=== PATIENT | male | born 1960 | race Caucasian/White ===

== ENCOUNTER → 2018-08-26 | Outpatient (CLI) | payer BC ==
[2018-08-26 11:05] LABS: Basophils # (A) 0.1 k/uL (0-0.2); Basophils % (A) 2 %; Eosinophils # (A) 0.1 k/uL (0-0.7); Eosinophils % (A) 1 %; HCT 46.9 % (39.0-53.0); HGB 15.4 gm/dL (13.0-17.5); Lymphocytes % (A) 14 %; MCHC 32.9 g/dL (31.0-37.0); MCV 91.1 fL (80.0-100.0); Mean Platelet Volume 6.4; Monocytes # (A) 0.4 k/uL (0-1.0); Monocytes % (A) 5 %; Neutrophils # (A) 5.7 k/uL (1.3-7.7); Neutrophils % (A) 77 %; Platelet Count 290 k/uL (150-450); RBC 5.14 m/uL (4.30-5.90); RDW 13.7 % (11.5-15.5); WBC 7.4 k/uL (3.8-10.6)
--- NOTE | 2018-08-26 11:11 | CT ---
EXAMINATION TYPE: CT abdomen pelvis wo con DATE OF EXAM: 08/26/2018 COMPARISON: None HISTORY: 58-year-old male gross hematuria CT DLP: 1158.30 mGycm. Automated exposure control for dose reduction was used. TECHNIQUE: Contiguous axial scanning of the abdomen and pelvis without IV contrast. Coronal and sagit genevieve reconstructions performed. FINDINGS: Heart normal size without pericardial effusion. Lung bases clear without pleural effusion. Tiny hiatal hernia. Low attenuation of the hepatic parenchyma suggesting fatty infiltration. Liver mildly enlarged at 19. 0 cm. Some focal fatty sparing is present along the gallbladder fossa. Gallbladder, adrenal glands, left kidney, spleen, and pancreas show no gross abnormality by noncontra st CT. No nephrolithiasis or hydronephrosis. No suspicious calculus along the course of either ureter. There is a lobulated hypodense lesion medial lower pole right kidney that could represent a single le donald or 2 adjacent lesions with aggregate dimension of 4.6 cm, possible cystic in etiology. This can be correlated with ultrasound. No dilated small bowel, free fluid, or free air. Normal appendix. Scattered nonenlarged mesenteric lymph nodes are present. Scattered mild to moderate colonic diverticulosis especially along the left hemicolon. No pericolonic inflammatory change. Mild circumference of bladder wall thickening. Prostate gland is enlarged at 5.3 cm wide. Limited vis ualization of portions of the pelvis due to artifact from the patient's right hip replacement. No abn ormal fluid collection in the pelvis or pelvic lymphadenopathy. Bones: Right hip total arthroplasty. Advanced degenerative changes at the left hip. Additional degene rative changes at the SI joints and spondylotic change throughout the visualized spine. IMPRESSION: 1. No nephrolithiasis or hydronephrosis. 2. Lobulated 4.6 cm lesion lower pole right kidney could represent a complex cyst or 2 adjacent cyst s. Correlation with nonemergent follow-up renal ultrasound recommended. 3. Mild to moderate circumferential bladder wall thickening could represent cystitis or chronic blad vincent wall hypertrophy. 4. Prostatomegaly (5.3 cm wide). 5. Mild hepatomegaly (19.0 cm) with hepatic steatosis. 6. Left hemicolonic diverticulosis without evidence for acute diverticulitis.
[2018-08-26 11:23] LABS: Potassium 5.1 mmol/L (3.5-5.1)
--- NOTE | 2018-08-26 15:48 | US ---
EXAMINATION TYPE: US kidneys/renal and bladder DATE OF EXAM: 08/26/2018 COMPARISON: CT today CLINICAL HISTORY: N28.1 kidney cyst. EXAM MEASUREMENTS: Right Kidney: 12.2 x 6.0 x 6.0cm Left Kidney: 12.1 x 6.3 x 4.9 cm Right Kidney: probable septated cyst measuring 2.7 x 3.5 x 2.7cm Left Kidney: 12.1 x 6.3 x 4.9 Bladder: wnl Bilateral Jets seen: Yes Cortical medullary differentiation is maintained. No evident hydronephrosis or pathologic calcificati on bilaterally. There is no ascites. Inferior impression on the urinary bladder likely due to enlarged prostate. IMPRESSION: Cysts within the lower pole the right kidney is not simple, follow-up is recommended.
[2018-08-26 17:22] LABS: Prostate Specific Antigen 2.65 ng/mL (0.00-4.00)
== END ==
LOC: RADCTMAIN 09:57
PROVIDERS: ATTEND Nurse Practitioner Family
DX: N28.1 Cyst of kidney, acquired (principal); N32.89 Other specified disorders of bladder; N40.0 Benign prostatic hyperplasia without lower urinary tract symptoms; R16.0 Hepatomegaly, not elsewhere classified; K76.0 Fatty (change of) liver, not elsewhere classified; K57.30 Diverticulosis of large intestine without perforation or abscess without bleeding; R31.0 Gross hematuria
CPT/HCPCS: 36415; 74176; 76770; 80051; 84153; 85025

== ENCOUNTER → 2018-10-14 | Outpatient (CLI) | payer BC ==
--- NOTE | 2018-10-14 15:56 | CT ---
EXAMINATION TYPE: CT abdomen w con DATE OF EXAM: 10/14/2018 COMPARISON: Renal ultrasound and CT abdomen and pelvis August 26, 2018. HISTORY: Gross hematuria. Complex renal cyst per order. CT DLP: 1662.5 mGycm, Automated Exposure Control for Dose Reduction was Utilized. CONTRAST: CT scan of the abdomen is performed with oral and with IV Contrast, patient injected with 100ml mL of Isovue M300. FINDINGS: LUNG BASES: No significant abnormality is appreciated. LIVER/GB: Liver remains diffusely low dense consistent with fatty infiltration. PANCREAS: No significant abnormality is seen. SPLEEN: No significant abnormality is seen. ADRENALS: No significant abnormality is seen. KIDNEYS: There is symmetric abnormal uptake and excretion from both kidneys without evidence of hydro nephrosis seen bilaterally. Simple appearing roughly 1.3 cm cyst felt present posteriorly mid to lowe r pole level left kidney seen best axial series 6 image 34. Subcentimeter low dense lesion upper pole level medially left kidney is noted axial image 28 series 6. At lower pole level right kidney there are suspected to adjacent hypodense lesions posteriorly largest measures 2.0 cm series 3 image 41 fel t to reflect simple cysts. No suspicious enhancement or solid nodularity is identified. BOWEL: Oral contrast does not reach colonic level. No suspicious bowel dilatation is seen. Normal-adelfo earing appendix is seen from base of cecum. There are diverticula in the left and sigmoid colon witho ut CT evidence for acute diverticulitis. Mild wall thickening left colon into proximal sigmoid colon is presumed product of poor distention. LYMPH NODES: No greater than 1cm abdominal lymph nodes are appreciated. OSSEOUS STRUCTURES: No significant abnormality is seen. OTHER: No significant additional abnormality is seen. IMPRESSION: At area of concern lower pole level right kidney there are suspected 2 adjacent simple cy sts. No suspicious nodularity or enhancement. No significant finding is seen to account for patient's symptoms of gross hematuria.
== END ==
LOC: RADCTMAIN 14:51
PROVIDERS: ATTEND Urology
DX: R31.0 Gross hematuria (principal)
CPT/HCPCS: 74160; Q9967

== ENCOUNTER 2022-05-30 11:43 | Inpatient (IN) | payer BC ==
[2022-05-30] MEDS ORDERED: ACETAMINOPHEN TAB 325 MG TAB PO STA (12:19)
[2022-05-30] MEDS ORDERED: SODIUM CHLORIDE 0.9% 1,000 ML IV STA (12:19)
[2022-05-30 13:10] LABS: Basophils # (A) 0.1 k/uL (0-0.2); Basophils % (A) 1 %; Eosinophils % (A) 0 %; HCT 37.5 % (39.0-53.0); HGB 12.6 gm/dL (13.0-17.5); Lymphocytes # (A) 0.6 k/uL (1.0-4.8); Lymphocytes % (A) 4 %; MCH 29.9 pg (25.0-35.0); MCHC 33.5 g/dL (31.0-37.0); MCV 89.3 fL (80.0-100.0); Mean Platelet Volume 6.5; Monocytes # (A) 0.9 k/uL (0-1.0); Monocytes % (A) 6 %; Neutrophils # (A) 12.9 k/uL (1.3-7.7); Neutrophils % (A) 88 %; Platelet Count 462 k/uL (150-450); RBC 4.19 m/uL (4.30-5.90); RDW 13.8 % (11.5-15.5); WBC 14.7 k/uL (3.8-10.6)
--- NOTE | 2022-05-30 13:18 | XR ---
EXAMINATION TYPE: XR chest 2V DATE OF EXAM: 05/30/2022 COMPARISON: NONE HISTORY: Fever TECHNIQUE: Frontal and lateral views of the chest are obtained. FINDINGS: Patchy densities present at the lung bases. There is no evident pneumothorax or sizable pl eural effusion. Cardiac mediastinal silhouette is within normal limits accounting for patient rotatio n. Lung volumes are low. Arthropathy noted at the acromioclavicular joints. There is thoracic spondyl osis. Aorta is dense. IMPRESSION: Correlate for pneumonia versus basilar atelectasis, follow-up suggested.
[2022-05-30 13:20] LABS: ALT 24 U/L (4-49); AST 18 U/L (17-59); African American GFR (CKD) >90 (>60 ml/min/1.73 sqM); Albumin 3.3 g/dL (3.5-5.0); Alkaline Phosphatase 123 U/L (38-126); Anion Gap 8 mmol/L; Blood Urea Nitrogen 12 mg/dL (9-20); Calcium 8.3 mg/dL (8.4-10.2); Carbon Dioxide 28 mmol/L (22-30); Chloride 97 mmol/L (98-107); Glucose 134 mg/dL (74-99); Non-African American GFR(CKD) >90 (>60 ml/min/1.73 sqM); Potassium 3.6 mmol/L (3.5-5.1); Sodium 133 mmol/L (137-145); Total Bilirubin 0.7 mg/dL (0.2-1.3); Total Protein 6.5 g/dL (6.3-8.2)
--- NOTE | 2022-05-30 13:25 | XR ---
Right knee HISTORY: Trauma, pain 3 views of the right knee Bone mineralization, joint spaces and alignment are maintained. There is soft tissue swelling present . Atherosclerotic vascular calcifications are noted incidentally. Minimal joint effusion suspected wadsworth prapatellar location. Possible bone island present proximal tibial diaphysis. Spurring is present at the patellofemoral joint. IMPRESSION: No acute fracture or dislocation.
[2022-05-30] MEDS ORDERED: SODIUM CHLORIDE 0.9% 1,000 ML IV ONE (14:20)
--- NOTE | 2022-05-30 14:47 | CT ---
EXAMINATION TYPE: CT abdomen pelvis wo con CT DLP: 1500.4 mGycm, Automated exposure control for dose reduction was used. DATE OF EXAM: 05/30/2022 2:17 PM COMPARISON: CT abdomen pelvis most recent from 10/14/2018. CLINICAL INDICATION:Male, 62 years old with history of fever, back pain; flank pain TECHNIQUE: Standard CT of the abdomen and pelvis without IV or oral contrast. Lack of IV or oral co ntrast limits evaluation of solid and hollow organ viscera. Coronal and sagittal reformats were perfo rmed. FINDINGS: LOWER CHEST: Airspace opacities within the left lower lobe. Trace bilateral pleural effusions. Athero sclerosis of the coronary arteries. ABDOMEN LIVER: Diffusely hypoattenuating parenchyma. GALLBLADDER AND BILE DUCTS: Unremarkable. PANCREAS: Unremarkable. SPLEEN: Unremarkable. ADRENAL GLANDS: Unremarkable. KIDNEYS AND URETERS: No evidence of hydronephrosis or renal calculus. The ureters are unremarkable. Bilateral renal cysts measuring up to 3.6 cm on the right and 2.5 cm on the left. PELVIS BLADDER: Unremarkable REPRODUCTIVE: Unremarkable. ABDOMEN & PELVIS STOMACH AND BOWEL: Scattered diverticula are noted throughout the colon. No evidence of bowel obstruc tion. PERITONEUM: No evidence of pneumoperitoneum or free fluid. VASCULATURE: No evidence of aortic aneurysm. MUSCULOSKELETAL: There is destructive changes to T9 and T10 anterior endplate with erosions of the en dplates and surrounding inflammation. Multilevel disc degeneration changes are seen throughout the sp ine. There is end-stage osteophytic changes of the left hip with [id number] articulation. Right hip arthroplasty changes are present. There is straightening of the visualized spine. LYMPH NODES: No gross evidence for lymphadenopathy. SOFT TISSUE/ABDOMINAL WALL: Unremarkable IMPRESSION: 1. Findings suspicious for osteomyelitis/discitis of T9-T10. This is new 2018. Could be secondary to #2 2. Partially visualized bilateral, left greater than right lower lobe airspace opacities concerning f or pneumonia. New trace bilateral pleural effusions. 3. No evidence of obstructive uropathy, slightly asymmetric dilation of the right mid ureter is prese nt. No ureteral calculi identified. This may represent recently passed calculus. Correlate with urina lysis 4. Hepatic steatosis 5. Colonic diverticulosis.
[2022-05-30] MEDS ORDERED: VANCOMYCIN IV PER PHARMACY 1 EACH MISC MISCELLANE PRN (14:48)
[2022-05-30 14:51] LABS: Appearance,Urine Cloudy (Clear); Bilirubin,Urine Negative (Negative); Blood,Urine Moderate (Negative); Color,Urine Yellow; Glucose,Urine (UA) Negative (Negative); Ketones,Urine Negative (Negative); Leukocyte Esterase,Urine Moderate (Negative); Mucus,Urine Few /hpf; Nitrite,Urine Positive (Negative); Protein,Urine 1+ (Negative); RBC,Urine 53 /hpf (0-5); Specific Gravity,Urine 1.022 (1.001-1.035); Urobilinogen,Urine <2.0 mg/dL (<2.0); WBC,Urine 22 /hpf (0-5)
[2022-05-30] MEDS ORDERED: VANCOMYCIN 1,750 MG in SODIUM CHLORIDE 0.9% 500 ML 500 ML IVPB STA (15:00)
[2022-05-30] MEDS ORDERED: ONDANSETRON 4 MG/2 ML VIAL IVP PRN (15:05)
[2022-05-30] MEDS ORDERED: NALOXONE 0.4 MG/ML 1 ML VIAL IV PRN (15:05)
--- NOTE | 2022-05-30 15:05 | ED ---
Back Pain HPI - General Chief Complaint: Back Pain/Injury Stated Complaint: back pain Time Seen by Provider: 05/30/22 11:46 Source: patient, RN notes reviewed Limitations: no limitations - History of Present Illness Initial Comments: 62-year-old male presents emergency Department with chief complaint of back pain. Patient states she's been having increasing back pain are negative tolerated today. Patient did receive fentanyl EMS which seemed to help. Patient states that a recent he's had infections including staph infection of his surgical site from cyst removal, recent upper respiratory infection, abdominal pain. Patient's found to have fever today he states that he felt like he had a fever over the last couple days. He denies any dysuria hematuria denies any sick contacts. Patient denies any neck pain or neck stiffness. - Related Data Home Medications Medication Instructions Recorded Confirmed Alfuzosin HCl [Alfuzosin HCl ER] 10 mg PO HS 05/30/22 05/30/22 Cyclobenzaprine [Flexeril] 10 mg PO TID PRN 05/30/22 05/30/22 Ibuprofen [Motrin] 800 mg PO Q8H PRN 05/30/22 05/30/22 traMADol HCl [Ultram] 50 mg PO Q4HR PRN 05/30/22 05/30/22 Allergies Allergy/AdvReac Type Severity Reaction Status Date / Time No Known Allergies Allergy Verified 05/30/22 14:01 Review of Systems ROS Statement: Those systems with pertinent positive or pertinent negative responses have been documented in the HPI. ROS Other: All systems not noted in ROS Statement are negative. Past Medical History Additional Past Medical History / Comment(s): Staph infection from cyst removal in shoulder 02/2022 Past Surgical History: Orthopedic Surgery Past Psychological History: No Psychological Hx Reported Smoking Status: Former smoker Past Alcohol Use History: None Reported Past Drug Use History: Marijuana General Exam Limitations: no limitations General appearance: alert, in no apparent distress Head exam: Present: atraumatic, normocephalic, normal inspection Eye exam: Present: normal appearance, PERRL, EOMI. Absent: scleral icterus, conjunctival injection, periorbital swelling ENT exam: Present: normal exam, mucous membranes moist Neck exam: Present: normal inspection, full ROM. Absent: tenderness, men ingismus, lymphadenopathy Respiratory exam: Present: normal lung sounds bilaterally. Absent: respiratory distress, wheezes, rales, rhonchi, stridor Cardiovascular Exam: Present: normal rhythm, tachycardia, normal heart sounds. Absent: systolic murmur, diastolic murmur, rubs, gallop, clicks GI/Abdominal exam: Present: soft, normal bowel sounds. Absent: distended, tenderness, guarding, rebound, rigid Back exam: Present: full ROM, tenderness, vertebral tenderness Course Vital Signs 05/30/22 11:44 Temperature 100.2 F H Pulse Rate 119 H Respiratory 18 Rate Blood Pressure 170/93 O2 Sat by Pulse 95 Oximetry Medical Decision Making - Medical Decision Making 62-year-old male presented for back pain patient was febrile patient does have mild leukocytosis, CT shows evidence of discitis, osteomyelitis. Patient was started on vancomycin, Rocephin. Patient does have consult to orthopedics and infectious disease. Case discussed with Dr. Bustillo - Lab Data Result diagrams: 05/30/22 12:31 05/30/22 12:31 Lab Results 05/30/22 05/30/22 05/30/22 Range/Units 12:31 12:31 12:31 WBC 14.7 H (3.8-10.6) k/uL RBC 4.19 L (4.30-5.90) m/uL Hgb 12.6 L (13.0-17.5) gm/dL Hct 37.5 L (39.0-53.0) % MCV 89.3 (80.0-100.0) fL MCH 29.9 (25.0-35.0) pg MCHC 33.5 (31.0-37.0) g/dL RDW 13.8 (11.5-15.5) % Plt Count 462 H (150-450) k/uL MPV 6.5 Neutrophils % 88 % Lymphocytes % 4 % Monocytes % 6 % Eosinophils % 0 % Basophils % 1 % Neutrophils # 12.9 H (1.3-7.7) k/uL Lymphocytes # 0.6 L (1.0-4.8) k/uL Monocytes # 0.9 (0-1.0) k/uL Eosinophils # 0.0 (0-0.7) k/uL Basophils # 0.1 (0-0.2) k/uL Sodium 133 L (137-145) mmol/L Potassium 3.6 (3.5-5.1) mmol/L Chloride 97 L (98-107) mmol/L Carbon Dioxide 28 (22-30) mmol/L Anion Gap 8 mmol/L BUN 12 (9-20) mg/dL Creatinine 0.74 (0.66-1.25) mg/dL Est GFR (CKD-EPI)AfAm >90 (>60 ml/min/1.73 sqM) Est GFR (CKD-EPI)NonAf >90 (>60 ml/min/1.73 sqM) Glucose 134 H (74-99) mg/dL Plasma Lactic Acid Harman (0.7-2.0) mmol/L Calcium 8.3 L (8.4-10.2) mg/dL Total Bilirubin 0.7 (0.2-1.3) mg/dL AST 18 (17-59) U/L ALT 24 (4-49) U/L Alkaline Phosphatase 123 (38-126) U/L Total Protein 6.5 (6.3-8.2) g/dL Albumin 3.3 L (3.5-5.0) g/dL Urine Color Yellow Urine Appearance Cloudy (Clear) Urine pH 6.0 (5.0-8.0) Ur Specific [place] 1.022 (1.001-1.035) Urine Protein 1+ H (Negative) Urine Glucose (UA) Negative (Negative) Urine Ketones Negative (Negative) Urine Blood Moderate H (Negative) Urine Nitrite Positive (Negative) Urine Bilirubin Negative (Negative) Urine Urobilinogen <2.0 (<2.0) mg/dL Ur Leukocyte Esterase Moderate H (Negative) Urine RBC 53 H (0-5) /hpf Urine WBC 22 H (0-5) /hpf Urine Mucus Few H (None) /hpf Coronavirus (PCR) (Not Detectd) Influenza Type A RNA (Not Detectd) Influenza Type B (PCR) (Not Detectd) 05/30/22 05/30/22 05/30/22 Range/Units 12:31 12:31 13:35 WBC (3.8-10.6) k/uL RBC (4.30-5.90) m/uL Hgb (13.0-17.5) gm/dL Hct (39.0-53.0) % MCV (80.0-100.0) fL MCH (25.0-35.0) pg MCHC (31.0-37.0) g/dL RDW (11.5-15.5) % Plt Count (150-450) k/uL MPV Neutrophils % % Lymphocytes % % Monocytes % % Eosinophils % % Basophils % % Neutrophils # (1.3-7.7) k/uL Lymphocytes # (1.0-4.8) k/uL Monocytes # (0-1.0) k/uL Eosinophils # (0-0.7) k/uL Basophils # (0-0.2) k/uL Sodium (137-145) mmol/L Potassium (3.5-5.1) mmol/L Chloride (98-107) mmol/L Carbon Dioxide (22-30) mmol/L Anion Gap mmol/L BUN (9-20) mg/dL Creatinine (0.66-1.25) mg/dL Est GFR (CKD-EPI)AfAm (>60 ml/min/1.73 sqM) Est GFR (CKD-EPI)NonAf (>60 ml/min/1.73 sqM) Glucose (74-99) mg/dL Plasma Lactic Acid Harman 0.8 (0.7-2.0) mmol/L Calcium (8.4-10.2) mg/dL Total Bilirubin (0.2-1.3) mg/dL AST (17-59) U/L ALT (4-49) U/L Alkaline Phosphatase (38-126) U/L Total Protein (6.3-8.2) g/dL Albumin (3.5-5.0) g/dL Urine Color Urine Appearance (Clear) Urine pH (5.0-8.0) Ur Specific [place] (1.001-1.035) Urine Protein (Negative) Urine Glucose (UA) (Negative) Urine Ketones (Negative) Urine Blood (Negative) Urine Nitrite (Negative) Urine Bilirubin (Negative) Urine Urobilinogen (<2.0) mg/dL Ur Leukocyte Esterase (Negative) Urine RBC (0-5) /hpf Urine WBC (0-5) /hpf Urine Mucus (None) /hpf Coronavirus (PCR) Not Detected (Not Detectd) Influenza Type A RNA Not Detected (Not Detectd) Influenza Type B (PCR) Not Detected (Not Detectd) Disposition Clinical Impression: Discitis thoracic region, Pneumonia Disposition: ADMITTED IP TO THIS HOSP Condition: Fair Referrals: Chris Laguerre DO [Primary Care Provider] - 1-2 days Time of Disposition: 15:05
[2022-05-30] MEDS: SODIUM CHLORIDE 0.9% 1,000 ML IV SCH (15:53)
[2022-05-30] MEDS: HYDROmorphone 0.5 MG/0.5 ML SYRINGE IVP PRN (16:45)
--- NOTE | 2022-05-30 17:52 | P.CNOR ---
History of Present Illness - HPI Consult date: 05/30/22 Consult reason: back pain History of present illness: Patient is a very pleasant 62-year-old man who is seen and examined at bedside. 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 He initially started having troubles in February of this year about 3 months ago where he developed a staph infection and was feeling run down. He had significant problems was found to have staph infection his urinary tract. He was treated with oral antibiotics for 2 weeks. He is still feeling a bit lethargic and disoriented his back and this has been progressive for him. T he pain is mainly in his mid back and his lower ribs. It wraps around bilaterally at his lower ribs. In February of this year he had a small cyst which was removed in his shoulder posteriorly. He states that he developed staph infection after that. He had other pain at his right lower rib due to a fall at home. He also had pain in his right hip due to a fall. He has history of right total hip rep lacement which was done 6 years ago. About 6 weeks ago he was having some fevers and general malaise. He denied any nausea or vomiting. Denies any shortness of breath. Denies any chest pain. He says he has never had pain in his mid back like this before. He denies any numbness tingling in his lower extremities. Denies any specific weakness in his ankle. Toes. He says the pain goes up and down his spine was primarily located at his lower thoracic spine. Review of Systems As stated per HPI. He denies any weakness in his lower upper extremities. Denies any nausea vomiting. He has pain globally around his spine particularly at the lower thoracic area. He is tender to palpation over the mid and lower thoracic. He denies any rashes. Denies any bowel bladder function changes. Past Medical History Past Medical History: Osteoarthritis (OA) Additional Past Medical History / Comment(s): Staph infection from cyst removal in shoulder 02/2022. History of right total knee arthroplasty done at [facility] about 6 years ago. History of Any Multi-Drug Resistant Organisms: None Reported Past Surgical History: Orthopedic Surgery Additional Past Surgical History / Comment(s): cyst removed from L posterior shoulder, R elbow fracture with hardware, total R hip arthroplasty, R knee surgery for meniscus, L bicep muscle tear with repair, partial thyroidectomy, colonoscopies/benign polypectomies. Past Anesthesia/Blood Transfusion Reactions: No Reported Reaction Past Psychological History: No Psychological Hx Reported Smoking Status: Former smoker Past Alcohol Use History: None Reported Past Drug Use History: Marijuana - Past Family History Father Family Medical History: Renal Disease Additional Family Medical History / Comment(s): Father had heart problems and from renal failure. Mother Family Medical History: Cancer Additional Family Medical History / Comment(s): Mother of stomach cancer. Medications and Allergies Home Medications Medication Instructions Recorded Confirmed Type Alfuzosin HCl [Alfuzosin HCl ER] 10 mg PO HS 05/30/22 05/30/22 History Cyclobenzaprine [Flexeril] 10 mg PO TID PRN 05/30/22 05/30/22 History Ibuprofen [Motrin] 800 mg PO Q8H PRN 05/30/22 05/30/22 History traMADol HCl [Ultram] 50 mg PO Q4HR PRN 05/30/22 05/30/22 History Allergies Allergy/AdvReac Type Severity Reaction Status Date / Time No Known Allergies Allergy Verified 05/30/22 14:01 Physical Examination Osteopathic Statement: *. No significant issues noted on an osteopathic structural exam other than those noted in the History and Physical/Consult. - L Spine: dermatomal strength & reflexes bilateral Strength: hip flexion: 4/5 (Some limited right hip flexion about 45 due to pain in his right hip which is chronic for him. Otherwise 5-5 strength in his lower extremity.) Strength: knee extension: 5/5 (At his mid back is tender to palpation about the midline extending up his thoracic and into his thoracolumbar junction. There is no open wounds lacerations or abrasions. He has some tension at his neck is well with flexion and extension) Results - Labs Labs: Abnormal Lab Results - Last 24 Hours (Table) 05/30/22 05/30/22 05/30/22 Range/Units 12:31 12:31 12:31 WBC 14.7 H (3.8-10.6) k/uL RBC 4.19 L (4.30-5.90) m/uL Hgb 12.6 L (13.0-17.5) gm/dL Hct 37.5 L (39.0-53.0) % Plt Count 462 H (150-450) k/uL Neutrophils # 12.9 H (1.3-7.7) k/uL Lymphocytes # 0.6 L (1.0-4.8) k/uL Sodium 133 L (137-145) mmol/L Chloride 97 L (98-107) mmol/L Glucose 134 H (74-99) mg/dL Calcium 8.3 L (8.4-10.2) mg/dL Albumin 3.3 L (3.5-5.0) g/dL Urine Protein 1+ H (Negative) Urine Blood Moderate H (Negative) Ur Leukocyte Esterase Moderate H (Negative) Urine RBC 53 H (0-5) /hpf Urine WBC 22 H (0-5) /hpf Urine Mucus Few H (None) /hpf H & H 05/30/22 Range/Units 12:31 Hgb 12.6 L (13.0-17.5) gm/dL Hct 37.5 L (39.0-53.0) % Result Diagrams: 05/30/22 12:31 05/30/22 12:31 - Diagnostic results CT Scan - lumbar: report reviewed, image reviewed (Computed tomography scan of the chest abdomen pelvis shows the thoracic spine with some bony erosion at T9 10 disc space with some erosion into the vertebral bodies. I do not see obvious fracture. He is some disc degeneration at lower lumbar spine as well.) Assessment and Plan Assessment: Insidious onset thoracic back pain with possible discitis Recent history of staph infection No evidence of neurologic loss and lower extremities Plan: Insidious onset thoracic back pain with possible discitis Recent history of staph infection No evidence of neurologic loss and lower extremities The patient has been having worsening pain around his thoracic spine which wraps towards his anterior torso bilaterally. The computed tomography scan shows evidence of significant change at the disc of T9 10 and clinically this appears to be discitis. He has elevated white count 14.7. He is not having any neurologic loss. He is already scheduled for MRI and I think that is appropriate. He has been started on IV antibiotics. Typically the primary treatment for discitis his prolonged IV antibiotics. Infectious disease is following the patient and will be able to manage that aspect. He is not having neurologic loss and I do not plan acute surgical intervention for him. If there is need for tissue culture from the disc it may be best suited with CT-guided biopsy from interventional radiology. This can be determined from an infectious disease standpoint if necessary. He may have some further comfort with bracing and we will order him a TLSO brace. It is okay for him to mobilize as he is able tolerate. I do not have immediate plans for surgical intervention for him. He should continue his medical management and antibiotic course.
[2022-05-30] MEDS ORDERED: TEMAZEPAM 15 MG CAP PO PRN (18:52)
[2022-05-30] MEDS ORDERED: LORazepam 0.5 MG TAB PO PRN (18:52)
[2022-05-30] MEDS ORDERED: CALCIUM CARBONATE 500 MG CHEWABLE PO PRN (18:52)
[2022-05-30] MEDS ORDERED: LACTULOSE 20 GM/30 ML CUP PO PRN (18:52)
--- NOTE | 2022-05-30 19:06 | P.HPIM ---
History of Present Illness H&P Date: 05/30/22 Chief Complaint: Upper back pain This is a pleasant 62-year-old patient who follows with Dr. Laguerre. Patient has a known history of arthritis. About 6 weeks ago patient was diagnosed with a UTI and told he had a staph infection. Initially given doxycycline and then ciprofloxacin. Patient also had a bout of hematuria. Had been taking ibuprofen. This was discontinued by Dr. aHrmon. Patient been having mid thoracic pain for 6 weeks progressively getting worse. Again more and more uncomfortable. Patient now presented with significant pain finding even difficult to move about. Patient has some limited range of motion on the right leg because of hip problem. Computed tomography scan of the ER didn't show evidence of discitis. Started on IV vancomycin and ceftriaxone in the ER. Having fevers. Review of systems: GEN.: Tired EYES: None HEENT: None NECK: None RESPIRATORY: None CARDIOVASCULAR: None GASTROINTESTINAL: None GENITOURINARY: None MUSCULOSKELETAL: As above LYMPHATICS: None HEMATOLOGICAL: None PSYCHIATRY: None NEUROLOGICAL: None Past medical history to include: Osteoarthritis. Social history: Patient smoked for about 20 years stopped in 1991. Alcohol occasionally. . 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 EYES: Pupils equal. Conjunctiva normal. HEENT: External appearance of nose and ears normal, oral cavity grossly normal. NECK: JVD not raised; masses not palpable. HEART: First and second heart sounds are normal; no edema. LUNGS: Respiratory rate normal; clear to auscultation. ABDOMEN: Soft, nontender, liver spleen not palpable, no masses palpable. PSYCH: Alert and oriented x3; mood and affect normal. MUSCULOSKELETAL tenderness over the midthoracic spine. Limited range of motion in the spine. Limited range of motion right hip. NEUROLOGICAL: Cranial nerves grossly intact; no facial asymmetry, power and sensation grossly intact. LYMPHATICS: No lymph nodes palpable in the axilla and neck INVESTIGATIONS, reviewed in the clinical context: White count 14.7 hemoglobin 12.6 platelets 462 sodium 133 progression 3.6 BUN 12 creatinine 0.74 UA positive for leukoesterase, WBC COVID 19/influenza type A and type B: Not detected Computed tomography scan abdomen and pelvis without contrast: Bilateral renal cyst. Scattered diverticula throughout the colon. Destructive changes to T9- T10 with surrounding inflammation. Multilevel disc herniation from the spine. Right hip arthroplasty changes present. Hepatic steatosis. Assessment and plan: -Patient presents with worsening pain in the upper thoracic spines close to 6 weeks. D-dimer UTI with a Staphylococcus infection. There was treated outpatient with doxycycline and ciprofloxacin. Patient's had been having intermittent fevers. Worsening thoracic spine symptoms. Now found to T9-T10 discitis. Source is found to be from UTI. IV vancomycin. Spine surgeon consulted. ID consulted. Blood cultures pending -Acute UTI with cystitis recurrent Consult urology -DJD of the thoracolumbar cervical spine. NSAIDs -Hepatic steatosis -Colonic diverticulosis, asymptomatic IV vancomycin. Subcu Lovenox. NSAIDs. MRI spine. Activity as tolerated. Consultation to thoracic spine, IV, urology. Care was discussed with the patient and at the bedside. Given the complexity and severity of patient's condition expect the patient to be in the hospital at least for 2 overnights Past Medical History Past Medical History: Osteoarthritis (OA) Additional Past Medical History / Comment(s): Staph infection from cyst removal in shoulder 02/2022. History of right total knee arthroplasty done at [facility] about 6 years ago. History of Any Multi-Drug Resistant Organisms: None Reported Past Surgical History: Orthopedic Surgery Additional Past Surgical History / Comment(s): cyst removed from L posterior shoulder, R elbow fracture with hardware, total R hip arthroplasty, R knee surgery for meniscus, L bicep muscle tear with repair, partial thyroidectomy, colonoscopies/benign polypectomies. Past Anesthesia/Blood Transfusion Reactions: No Reported Reaction Past Psychological History: No Psychological Hx Reported Smoking Status: Former smoker Past Alcohol Use History: None Reported Past Drug Use History: Marijuana - Past Family History Father Family Medical History: Renal Disease Additional Family Medical History / Comment(s): Father had heart problems and from renal failure. Mother Family Medical History: Cancer Additional Family Medical History / Comment(s): Mother of stomach cancer. Medications and Allergies Home Medications Medication Instructions Recorded Confirmed Type Alfuzosin HCl [Alfuzosin HCl ER] 10 mg PO HS 05/30/22 05/30/22 History Cyclobenzaprine [Flexeril] 10 mg PO TID PRN 05/30/22 05/30/22 History Ibuprofen [Motrin] 800 mg PO Q8H PRN 05/30/22 05/30/22 History traMADol HCl [Ultram] 50 mg PO Q4HR PRN 05/30/22 05/30/22 History Allergies Allergy/AdvReac Type Severity Reaction Status Date / Time No Known Allergies Allergy Verified 05/30/22 14:01 Physical Exam Vitals: Vital Signs Temp Pulse Pulse Resp BP BP Pulse Ox 05/30/22 16:42 99.4 F 97 19 161/86 93 L 05/30/22 15:13 100.5 F H 415 H 20 157/94 92 L 05/30/22 11:44 100.2 F H 119 H 18 170/93 95 Intake and Output 05/30/22 05/30/22 05/30/22 06:59 14:59 22:59 Intake Total 180 Balance 180 Intake: Oral 180 Other: # Voids 2 Weight 117.934 kg 117.934 kg Results CBC & Chem 7: 05/30/22 12:31 05/30/22 12:31 Labs: Abnormal Lab Results - Last 24 Hours (Table) 05/30/22 05/30/22 05/30/22 Range/Units 12:31 12:31 12:31 WBC 14.7 H (3.8-10.6) k/uL RBC 4.19 L (4.30-5.90) m/uL Hgb 12.6 L (13.0-17.5) gm/dL Hct 37.5 L (39.0-53.0) % Plt Count 462 H (150-450) k/uL Neutrophils # 12.9 H (1.3-7.7) k/uL Lymphocytes # 0.6 L (1.0-4.8) k/uL Sodium 133 L (137-145) mmol/L Chloride 97 L (98-107) mmol/L Glucose 134 H (74-99) mg/dL Calcium 8.3 L (8.4-10.2) mg/dL Albumin 3.3 L (3.5-5.0) g/dL Urine Protein 1+ H (Negative) Urine Blood Moderate H (Negative) Ur Leukocyte Esterase Moderate H (Negative) Urine RBC 53 H (0-5) /hpf Urine WBC 22 H (0-5) /hpf Urine Mucus Few H (None) /hpf Microbiology - Last 24 Hours (Table) 05/30/22 12:31 Urine Culture - Preliminary Urine,Voided Thrombosis Risk Factor Assmnt - Choose All That Apply Any of the Below Risk Factors Present?: Yes Each Factor Represents 1 point: Obesity (BMI >25) Other Risk Factors: Yes Each Risk Factor Represents 2 Points: Age 61-74 years Other congenital or acquired thrombophilia - If yes, enter type in comment: No Thrombosis Risk Factor Assessment Total Risk Factor Score: 3 Thrombosis Risk Factor Assessment Level: Moderate Risk
[2022-05-30] MEDS: CYCLOBENZAPRINE 10 MG TAB PO PRN (21:23)
[2022-05-30] MEDS: TAMSULOSIN 0.4 MG CAP.ER.24H PO SCH (21:23)
[2022-05-30] MEDS: ENOXAPARIN 40 MG/0.4 ML SYRINGE SQ SCH (22:30)
[2022-05-30] MEDS: NAPROXEN 250 MG TAB PO SCH (22:30)
--- NOTE | 2022-05-30 23:39 | P.CONS ---
History of Present Illness - Reason for Consult Consult date: 05/30/22 Discitis Requesting physician: Gabriele James - Chief Complaint Mid back pain x few days - History of Present Illness Patient is a 62-year-old male presenting to the ER today for evaluation of back pain apparently the patient has been dealing with a back pain over the last few weeks however seem to have gotten worse today that he was unable to move hence EMS was called and the patient was brought into the hospital patient denies having history of any trauma or fall however he did mention that he did have a cyst removed from the upper back and did mention to the ER physician that there was a staph infection however the patient was not able to clarify that history to me and there is no evidence of any positive culture in the [facility] system, patient has been describing his pain to be sharp intensity almost 20 out of 10 and no radiation patient denies having any weakness in the lower extremity and no bowel or bladder problem patient on presentation to the hospital did have a fever of 100.5 F, patient did have a tachycardia and elevated white count with a left shift kidney function was normal liver enzymes are normal urine has been positive for lucas influenza PCR was negative patient did have a CT of abdominal pelvis did not show any acute intra-abdominal pathology however suspicious for osteomyelitis discitis of T9- T10 patient was started on vancomycin and Rocephin admitted to hospital infectious disease was consulted for further management of antibiotic therapy patient did have a chest x-ray suspicious for pneumonia however the patient is currently on room air and do not have any respiratory symptoms Review of Systems Positive point has been mentioned in the HPI rest of the systems are negative Past Medical History Additional Past Medical History / Comment(s): Staph infection from cyst removal in shoulder 02/2022 Past Surgical History: Orthopedic Surgery Past Psychological History: No Psychological Hx Reported Smoking Status: Former smoker Past Alcohol Use History: None Reported Past Drug Use History: Marijuana - Past Family History Father Family Medical History: Renal Disease Additional Family Medical History / Comment(s): Father had heart problems and from renal failure. Mother Family Medical History: Cancer Additional Family Medical History / Comment(s): Mother of stomach cancer. Medications and Allergies Home Medications Medication Instructions Recorded Confirmed Type Alfuzosin HCl [Alfuzosin HCl ER] 10 mg PO HS 05/30/22 05/30/22 History Cyclobenzaprine [Flexeril] 10 mg PO TID PRN 05/30/22 05/30/22 History Ibuprofen [Motrin] 800 mg PO Q8H PRN 05/30/22 05/30/22 History traMADol HCl [Ultram] 50 mg PO Q4HR PRN 05/30/22 05/30/22 History Allergies Allergy/AdvReac Type Severity Reaction Status Date / Time No Known Allergies Allergy Verified 05/30/22 14:01 Physical Exam Vitals: Vital Signs Temp Pulse Resp BP Pulse Ox 05/30/22 15:13 100.5 F H 415 H 20 157/94 92 L 05/30/22 11:44 100.2 F H 119 H 18 170/93 95 Intake and Output 05/30/22 05/30/22 05/30/22 06:59 14:59 22:59 Other: Weight 117.934 kg GENERAL DESCRIPTION: Middle-aged male lying in bed, no distress. No tachypnea or accessory muscle of respiration use. HEENT: Shows Pallor , no scleral icterus. Oral mucous membrane is dry. No pharyngeal erythema or thrush NECK: Trachea central, no thyromegaly. LUNGS: Unlabored breathing.Decreased breath sound the base. No wheeze or crackle. HEART: S1, S2, regular rate and rhythm. No loud murmur ABDOMEN: Soft, no tenderness , guarding or rigidity, no organomegaly EXTREMITIES: No edema of feet. SKIN: No rash, no masses palpable. NEUROLOGICAL: The patient is awake, alert, oriented x3, mood and affect normal. Results CBC & Chem 7: 05/30/22 12:31 05/30/22 12:31 Labs: Abnormal Lab Results - Last 24 Hours (Table) 05/30/22 05/30/22 05/30/22 Range/Units 12:31 12:31 12:31 WBC 14.7 H (3.8-10.6) k/uL RBC 4.19 L (4.30-5.90) m/uL Hgb 12.6 L (13.0-17.5) gm/dL Hct 37.5 L (39.0-53.0) % Plt Count 462 H (150-450) k/uL Neutrophils # 12.9 H (1.3-7.7) k/uL Lymphocytes # 0.6 L (1.0-4.8) k/uL Sodium 133 L (137-145) mmol/L Chloride 97 L (98-107) mmol/L Glucose 134 H (74-99) mg/dL Calcium 8.3 L (8.4-10.2) mg/dL Albumin 3.3 L (3.5-5.0) g/dL Urine Protein 1+ H (Negative) Urine Blood Moderate H (Negative) Ur Leukocyte Esterase Moderate H (Negative) Urine RBC 53 H (0-5) /hpf Urine WBC 22 H (0-5) /hpf Urine Mucus Few H (None) /hpf Assessment and Plan (1) Discitis thoracic region Current Visit: Yes Status: Acute Code(s): M46.44 - DISCITIS, UNSPECIFIED, THORACIC REGION SNOMED Code(s): 097439864 Plan: 1patient presented to hospital with sepsis and respiratory have fever elevated white count tachycardia in this patient significant mid back pain with abnormal CT suspicious for T9-10 discitis patient review of urine history of staph infection posthaste cyst removed from the back however I do not have any clear documentation of the same. 2we will obtain an MRI of the thoracic spine to better define underlying pathology and to make sure there is no evidence of any paraspinal collection that may need to be drained. 3Ortho versus IR aspiration of the area for culture. 4we will check inflammatory markers. 5vancomycin pharmacy to dose target trough of 15 while watching kidney fun ction and vancomycin trough closely and Rocephin to continue empirically. We will follow on clinical condition and cultures to further adjust medication if needed Thank you for this consultation will follow this patient along with you Time with Patient: Greater than 30
[2022-05-31] MEDS: VANCOMYCIN 1,750 MG in SODIUM CHLORIDE 0.9% 500 ML 500 ML IVPB SCH ×2 (02:50→10:11)
[2022-05-31] MEDS ORDERED: ACETAMINOPHEN TAB 325 MG TAB PO PRN (03:04)
[2022-05-31] MEDS: NAPROXEN 250 MG TAB PO SCH ×3 (07:14→23:39)
[2022-05-31] MEDS: ENOXAPARIN 40 MG/0.4 ML SYRINGE SQ SCH ×2 (07:15→07:17)
--- NOTE | 2022-05-31 08:24 | P.PN ---
Progress Note - Text Progress Note Date: 05/31/22 The patient is seen and examined today at bedside. He says his back is feeling a little bit better and that his fever has resolved. He feels his mobility is slightly better as well. He denies any new symptoms denies any new complaints of pain. He localizes pain over the midline at his lower thoracic area. He does not feel any weakness in his lower extremities. He is afebrile this morning, and had a T-max of 100.6 last night at 10 PM and then 100.1 at 2 AM He has good motion in his ankle. Toes. Abdomen soft nontender MRI of the thoracic spine is ordered and pending Assessment and plan Thoracic back pain Disc changes on computed tomography scan at T9 10 with likely discitis Recent history of staph infection No evidence of neurologic decline The patient seems to be making some progress with his pain and fever and his infectious symptoms with the IV antibiotics. Clinically we are working on the diagnosis of discitis at T9 10. The MRI is pending and this will certainly help with the diagnosis. He is not having any neurologic change and he would likely continue treatment with conservative management and long-term antibiotics. Without obvious neurologic symptoms I would not plan acute surgical intervention. The MRI will certainly help to determine if there is paraspinal or epidural change to address. He should continue his antibiotics and medical management for now. He may mobilize and able to his tolerance. We have ordered a TLSO brace for him to help give him stability while he is out of bed.
[2022-05-31 10:14] LABS: Basophils # (A) 0.06 X 10*3/uL (0.00-0.10); Basophils % (A) 0.4 %; Eosinophils # (A) 0.02 X 10*3/uL (0.04-0.35); Eosinophils % (A) 0.1 %; HCT 40.6 % (39.6-50.0); HGB 12.9 g/dL (13.0-17.0); Immature Grans, Automated 1.6 %; Lymphocytes % (A) 6.9 %; MCH 28.2 pg (27.0-32.0); MCHC 31.8 g/dL (32.0-37.0); MCV 88.8 fL (80.0-97.0); Mean Platelet Volume 8.6 fL (9.5-12.2); Monocytes # (A) 1.46 X 10*3/uL (0.20-1.00); Monocytes % (A) 9.2 %; NRBC Per 100 WBC 0 /100 WBCS (0.0-0.0); Neutrophils % (A) 81.8 %; Platelet Count 385 X 10*3/uL (140-440); RBC 4.57 X 10*6/uL (4.40-5.60); RDW 14.4 % (11.5-14.5); WBC 15.89 X 10*3/uL (4.50-10.00)
[2022-05-31 11:33] LABS: Erythrocyte Sedimentation Rate 97 mm/Hr (0-20)
[2022-05-31 12:05] LABS: Albumin 3.1 g/dL (3.8-4.9); BUN/Creat Ratio 15.17 Ratio (12.00-20.00); Blood Urea Nitrogen 9.1 mg/dL (9.0-27.0); C Reactive Protein 22.2 mg/dL (0.00-0.80); Calcium 8.7 mg/dL (8.7-10.3); Globulin 3.1 g/dL (1.6-3.3); Potassium 3.5 mmol/L (3.5-5.5); Total Bilirubin 0.5 mg/dL (0.30-1.20); Total Protein 6.2 g/dL (6.2-8.2)
[2022-05-31 12:43] VITALS: BMI 37.3
--- NOTE | 2022-05-31 12:44 | P.PN ---
Progress Note - Text Progress Note Date: 05/31/22 Chief Complaint: Upper back pain This is a pleasant 62-year-old patient who follows with Dr. Laguerre. Patient has a known history of arthritis. About 6 weeks ago patient was diagnosed with a UTI and told he had a staph infection. Initially given doxycycline and then ciprofloxacin. Patient also had a bout of hematuria. Had been taking ibuprofen. This was discontinued by Dr. Harmon. Patient been having mid thoracic pain for 6 weeks progressively getting worse. Again more and more uncomfortable. Patient now presented with significant pain finding even difficult to move about. Patient has some limited range of motion on the right leg because of hip problem. Computed tomography scan of the ER didn't show evidence of discitis. Started on IV vancomycin and ceftriaxone in the ER. Having fevers. Admitted with T9/T10 discitis. Acute UTI with cystitis. Started on IV vancomycin. 05/31/2022: Patient still having significant spinal pain. Oral intake fair. On IV vancomycin. And ceftriaxone. Blood cultures positive for Streptococcus aureus. Active Medications Acetaminophen (Acetaminophen Tab 325 Mg Tab) 650 mg PO Q6HR PRN PRN Reason: Fever and/ or Pain Last Admin: 05/31/22 03:43 Dose: 650 mg Hydrocodone Bitart/Acetaminophen (Hydrocodone/Apap 5-325mg 1 Each Tab) 1 each PO Q4HR PRN PRN Reason: Moderate Pain Calcium Carbonate/Glycine (Calcium Carbonate 500 Mg Chewable) 1,000 mg PO Q4HR PRN PRN Reason: Dyspepsia Cyclobenzaprine HCl (Cyclobenzaprine 10 Mg Tab) 10 mg PO TID PRN PRN Reason: Muscle Spasm Last Admin: 05/30/22 21:23 Dose: 10 mg Enoxaparin Sodium (Enoxaparin 40 Mg/0.4 Ml Syringe) 40 mg SQ DAILY OFELIA Last Admin: 05/31/22 07:17 Dose: Not Given Hydromorphone HCl (Hydromorphone 0.5 Mg/0.5 Ml Syringe) 0.5 mg IVP Q3HR PRN PRN Reason: Moderate Pain Last Admin: 05/30/22 16:45 Dose: 0.5 mg Hydromorphone HCl (Hydromorphone 1 Mg/Ml 1 Ml Syringe) 1 mg IVP Q3HR PRN PRN Reason: Severe Pain Ceftriaxone Sodium 2 gm/ (Sodium Chloride) 50 mls @ 100 mls/hr IVPB Q24HR [facility]; Protocol Last Admin: 05/31/22 08:37 Dose: 100 mls/hr Vancomycin HCl 1,750 mg/ (Sodium Chloride) 500 mls @ 167 mls/hr IVPB Q8HR [facility] Last Admin: 05/31/22 10:11 Dose: 167 mls/hr Sodium Chloride (Saline 0.9%) 1,000 mls @ 75 mls/hr IV .[id number] [facility] Last Admin: 05/31/22 00:00 Dose: 75 mls/hr Lactulose (Lactulose 20 Gm/30 Ml Cup) 20 gm PO DAILY PRN PRN Reason: Constipation Lorazepam (Lorazepam 0.5 Mg Tab) 0.5 mg PO Q6HR PRN PRN Reason: Anxiety Miscellaneous Information (Vancomycin Trough Due 1 Each Misc) 0 each MISCELLANE DIRECTED ONE Stop: 06/01/22 07:01 Naloxone HCl (Naloxone 0.4 Mg/Ml 1 Ml Vial) 0.2 mg IV Q2M PRN PRN Reason: Opioid Reversal Naproxen (Naproxen 250 Mg Tab) 250 mg PO TID [facility] Last Admin: 05/31/22 07:14 Dose: 250 mg Ondansetron HCl (Ondansetron 4 Mg/2 Ml Vial) 4 mg IVP Q8HR PRN PRN Reason: Nausea And Vomiting Tamsulosin HCl (Tamsulosin 0.4 Mg Cap.Er.24h) 0.4 mg PO HS [facility] Last Admin: 05/30/22 21:23 Dose: 0.4 mg Temazepam (Temazepam 15 Mg Cap) 15 mg PO HS PRN PRN Reason: Insomnia Past medical history to include: Osteoarthritis. Social history: Patient smoked for about 20 years stopped in 1991. Alcohol occasionally. . 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 Conjunctiva normal. HEENT: External appearance of nose and ears normal, oral cavity grossly normal. NECK: JVD not raised; masses not palpable. HEART: First and second heart sounds are normal; no edema. LUNGS: Respiratory rate normal; clear to auscultation. ABDOMEN: Soft, nontender, liver spleen not palpable, no masses palpable. PSYCH: Alert and oriented x3; mood and affect normal. MUSCULOSKELETAL tenderness over the midthoracic spine. Limited range of motion in the spine. Limited range of motion right hip. INVESTIGATIONS, reviewed in the clinical context: May 31: White count 15.8 hemoglobin 12.9 potassium 3.5 creatinine 9.1 CRP 22.2 Blood culture: Staphylococcus aureus White count 14.7 hemoglobin 12.6 platelets 462 sodium 133 progression 3.6 BUN 12 creatinine 0.74 UA positive for leukoesterase, WBC COVID 19/influenza type A and type B: Not detected Computed tomography scan abdomen and pelvis without contrast: Bilateral renal cyst. Scattered diverticula throughout the colon. Destructive changes to T9- T10 with surrounding inflammation. Multilevel disc herniation from the spine. Right hip arthroplasty changes present. Hepatic steatosis. Assessment and plan: -Patient presents with worsening pain in the upper thoracic spines close to 6 weeks. D-dimer UTI with a Staphylococcus infection. There was treated outpatient with doxycycline and ciprofloxacin. Patient's had been having intermittent fevers. Worsening thoracic spine symptoms. Now found to T9-T10 discitis. Source is from UTI. IV vancomycin. Spine surgeon consulted. ID consulted. Blood cultures pending -Sepsis with blood cultures positive for Staphylococcus aureus: Slow to respond IV fluids, IV vancomycin -Acute UTI with cystitis recurrent Consult urology -DJD of the thoracolumbar cervical spine. NSAIDs -Hepatic steatosis -Colonic diverticulosis, asymptomatic IV vancomycin. Subcu Lovenox. NSAIDs. Pending MRI spine. Discussed with the patient.
--- NOTE | 2022-05-31 12:52 | CDI ---
Documentation Clarification Form Date: 05/31/2022 12:13:39 PM From: Shona Gutiérrez RN, CCDS Admit Date: 05/30/2022 03:33:00 PM Patient Name: Nicholas Verma Visit Number: [id number] Discharge Date: ATTENTION: The Clinical Documentation Specialists (CDI) and [facility] Coding Staff appreciate your assistance in clarifying documentation. Please respond to the clarification below the line at the bottom and electronically sign. The CDI & [facility] Coding staff will review the response and follow-up if needed. Please note: Queries are made part of the Legal Health Record. If you have any questions, please contact the author of this message via ITS. Dr. Hiren Bustillo The patient presented with fever, elevated white count and tachycardia. CT scan suspicious for T9-10 discitis, and UA showing moderate leukocyte esterase, Urine WBC 22. Additional clarification regarding the etiology/cause of the clinical indicators is requested. 05/30 ID: Patient presented to hospital with sepsis, have fever, elevated white count tachycardia in the patient significant mid back pain with abnormal CT suspicious for T9-10 discitis. Patient review of urine history of staph infection. History/Risk Factors: Staph infection from cyst removal in shoulder 02/2022 Clinical Indicators: 62-year-old male present for back pain, Ct shows evidence of discitis osteomyelitis. 05/30 WBC 14.7, UA: Urine nitrite positive, Ur Leukocyte Esterase moderate, Urine WBC 22 05/30 Lactic acid: 0.8 05/30 Blood cultures: Gram positive cocci in clusters 05/30 CXR: Correlate for pneumonia vs basilar atelectasis, follow-up suggested. 05/30 Vital signs: 170/93 119 18 100.2 95 % RA, (20:00) 153/94 101 16 100.6 90 % Ra Treatment: Vancomycin HCL 1,750 MG IV Q HR (PTD) .9 NS Bolus (1,000 MLS) X2 05/30 Rocephin 2GM IVPB Q 24 HRS 05/30 In your professional opinion, please clarify if these findings signify one of the following conditions: [ ] Sepsis POA [ ] Sepsis ruled out [ ] Other, please specify [ ] Unable to determine SIRS Criteria: 2 or more of the following may indicate SIRS -Temperature < 96.8F (36C) or > 101.0F (38.3C) -Heart Rate > 90 bpm -Respiratory Rate > 20 breaths/min or PaCO2 < 32 mmHg -White Blood Cell Count > 12,000 or < 4,000 cells/mm3 or > 10% bands (Template Last Reviewed: December 2020) Sepsis, POA MTDD
[2022-05-31] MEDS: HYDROmorphone 1 MG/ML 1 ML SYRINGE IVP PRN (18:14)
[2022-05-31] MEDS: SODIUM CHLORIDE 0.9% 1,000 ML IV SCH ×2 (18:19)
[2022-05-31] MEDS: CYCLOBENZAPRINE 10 MG TAB PO PRN (23:39)
[2022-05-31] MEDS: TAMSULOSIN 0.4 MG CAP.ER.24H PO SCH (23:40)
[2022-06-01] MEDS: HYDROmorphone 1 MG/ML 1 ML SYRINGE IVP PRN ×2 (01:22→06:32)
[2022-06-01] MEDS: HYDROcodone/APAP 5-325MG 1 EACH TAB PO PRN ×2 (06:32→20:39)
[2022-06-01] MEDS ORDERED: VANCOMYCIN TROUGH DUE 1 EACH MISC MISCELLANE ONE (07:00)
--- NOTE | 2022-06-01 07:57 | P.PN ---
Subjective Progress Note Date: 05/31/22 Principal diagnosis: T910 discitis and bacteremia Patient is a 62-year-old male with a chronic pain to the mid back with a recent worsening did have abnormal CT concerning for discitis now with evidence of MSSA bacteremia. On today's evaluation that is 05/31/2022, the patient is afebrile this morning patient is feeling slightly better as far as the pain is concerned, patient denies having any chest pain shortness of breath or cough no nausea no vomiting no abdominal pain no diarrhea Objective - Vital Signs Vital signs: Vital Signs Temp 97.8 F 05/31/22 06:54 Pulse 73 05/31/22 06:54 Resp 20 05/31/22 06:54 BP 156/83 05/31/22 06:54 Pulse Ox 94 L 05/31/22 06:54 FiO2 Intake & Output 05/30/22 05/31/22 05/31/22 18:59 06:59 18:59 Intake Total 180 1080 180 Balance 180 1080 180 Weight 117.934 kg Intake: Oral 180 1080 180 Other: Voiding Method Urinal # Voids 2 - Exam GENERAL DESCRIPTION: Middle-aged male lying in bed in no distress RESPIRATORY SYSTEM: Unlabored breathing , decreased breath sounds at bases HEART: S1 S2 regular rate and rhythm , ABDOMEN: Soft , no tenderness EXTREMITIES: No edema feet - Labs CBC & Chem 7: 05/31/22 06:04 05/31/22 06:04 Labs: Abnormal Lab Results - Last 24 Hours (Table) 05/30/22 05/30/22 05/30/22 Range/Units 12:31 12:31 12:31 WBC 14.7 H (3.8-10.6) k/uL RBC 4.19 L (4.30-5.90) m/uL Hgb 12.6 L (13.0-17.5) gm/dL Hct 37.5 L (39.0-53.0) % Plt Count 462 H (150-450) k/uL Neutrophils # 12.9 H (1.3-7.7) k/uL Lymphocytes # 0.6 L (1.0-4.8) k/uL Sodium 133 L (137-145) mmol/L Chloride 97 L (98-107) mmol/L Glucose 134 H (74-99) mg/dL Calcium 8.3 L (8.4-10.2) mg/dL Albumin 3.3 L (3.5-5.0) g/dL Urine Protein 1+ H (Negative) Urine Blood Moderate H (Negative) Ur Leukocyte Esterase Moderate H (Negative) Urine RBC 53 H (0-5) /hpf Urine WBC 22 H (0-5) /hpf Urine Mucus Few H (None) /hpf Microbiology - Last 24 Hours (Table) 05/30/22 12:46 Blood Culture - Final Blood 05/30/22 12:30 Blood Culture - Final Blood 05/30/22 12:31 Urine Culture - Preliminary Urine,Voided Assessment and Plan (1) Discitis thoracic region Current Visit: Yes Status: Acute Code(s): M46.44 - DISCITIS, UNSPECIFIED, THORACIC REGION SNOMED Code(s): 363415837 Plan: 1patient presented to hospital with sepsis and respiratory have fever elevated white count tachycardia in this patient significant mid back pain with abnormal CT suspicious for T9-10 discitis patient review of urine history of staph infection posthaste cyst removed from the back however I do not have any clear documentation of the same. 2we are waiting for MRI of the thoracic spine to better define underlying pathology and to make sure there is no evidence of any paraspinal collection that may need to be drained. 3blood culture with MSSA so we will not need any aspirate unless there is evidence of abscess 4antibiotic will be switched over to cefazolin 2 g every 8 hours, daily blood cultures to document clearance of bacteremia Time with Patient: Less than 30
[2022-06-01] MEDS: NAPROXEN 250 MG TAB PO SCH ×3 (08:50→20:33)
[2022-06-01] MEDS: SODIUM CHLORIDE 0.9% 1,000 ML IV SCH ×2 (08:51→21:56)
[2022-06-01] MEDS: ENOXAPARIN 40 MG/0.4 ML SYRINGE SQ SCH (09:01)
[2022-06-01] MEDS: LISINOPRIL-HCTZ 20-12.5 MG 1 EACH TAB PO SCH ×2 (11:51→20:34)
--- NOTE | 2022-06-01 12:36 | P.PN ---
Progress Note - Text Progress Note Date: 06/01/22 Orthopedic spine: History of present illness: Patient is a very pleasant 62-year-old male who is seen and examined at the bedside for follow up evaluation of his thoracic spine. Since being seen and examined yesterday he states his thoracic pain continues to have some improvement but does continue to be present. He does have difficulty lying down and sleeping at night due to his pain. He is able to mobilize in the room today independently without significant difficulty. He denies any lower extremity weakness or radiculopathy bilaterally. He remains afebrile. Thoracic MRI imaging was ordered on 05/30/2022 and has not yet been performed. The MRI is planned to be performed today. He continues to be seen and examined by medicine and infectious disease. He is being treated for abnormal CT concerning for thoracic discitis with evidence of MSSA bacteremia. He is currently on 7 [place] 2 g every 8 hours. Blood cultures resulted from yesterday are positive for Staphylococcus aureus. Patient feels overall his symptoms have improved he would like to continue his conservative treatment options. He was prescribed and fitted with a TLSO brace. He has not been wearing this brace often as he finds uncomfortable. Physical exam: Patient is awake, alert, and oriented 3 Vital signs stable Good chest excursion with deep inspiration and expiration Examination of the thoracic and lumbar spine reveals skin is intact with no abrasions, lacerations, or bruises; no erythema, purulence or signs of infection Mild pain with palpation along the midline of the lower drastic spine Dorsiflexion, plantarflexion, and extensor hallucis longus positive sustained bilaterally Lower extremity strength 5/5 bilaterally Patient changes positions well independently in the room Assessment: Thoracic back pain T9 and T10 disc changes on CT imaging likely discitis Fever, resolved MSSA bacteremia Leukocytosis Plan: 1. Patient has continued to improve symptomatically. He continues have some thoracic back pain but his pain is better controlled. He has remained afebrile. He continues IV antibiotics. Clinically we are working on diagnosis of discitis at T8 9 and T10. MRI was previously ordered on 05/30/2022. This has not yet been completed. Plans are for this MRI to be completed today. Patient is not experiencing any neurological decline. He has good strength in his bilateral lower extremities. He is able to stand change positions well independently. Currently, we'll plan to continue conservative treatment and long-term antibiotics. These antibiotics may be managed by infectious disease. Given his improvement and no neurological change, we would not plan for acute surgical intervention. We did discuss MRI imaging would be beneficial to evaluate if there is evidence of paraspinal or epidural change or abscess. We also did discuss if the patient were to have evidence of paraspinal or epidural change or abscess requiring acute surgical intervention placement would need to be transferred to a tertiary facility as Dr. Raciel Garland is currently out of town and will return this coming 06/04/2022. Patient states he does agree with this plan and would like to continue conservative treatment at this time. Given his improvement, patient would like to avoid surgical intervention. Plan of care was also discussed with nursing. We did discuss he may wear his TLSO brace for comfort support as needed. 2. Patient will continue receiving examined by multiple other medical providers including medicine and infectious disease
--- NOTE | 2022-06-01 13:00 | P.PN ---
Subjective Progress Note Date: 06/01/22 Principal diagnosis: T910 discitis and bacteremia Patient is a 62-year-old male with a chronic pain to the mid back with a recent worsening did have abnormal CT concerning for discitis now with evidence of MSSA bacteremia. On today's evaluation that is 06/01/2022, the patient remains to be afebrile, the patient is feeling slightly better as far as the mid back pain is concerned, patient denies having any chest pain shortness of breath or cough no nausea no vomiting no abdominal pain no diarrhea Objective - Vital Signs Vital signs: Vital Signs Temp 97.6 F 06/01/22 05:57 Pulse 87 06/01/22 08:30 Resp 15 06/01/22 05:57 BP 158/85 06/01/22 08:30 Pulse Ox 93 L 06/01/22 05:57 FiO2 Intake & Output 05/31/22 06/01/22 06/01/22 18:59 06:59 18:59 Intake Total 360 1080 180 Balance 360 1080 180 Weight 117.934 kg Intake: Oral 360 1080 180 Other: Voiding Method Urinal # Voids 3 # Bowel Movements 1 - Exam GENERAL DESCRIPTION: Middle-aged male lying in bed in no distress RESPIRATORY SYSTEM: Unlabored breathing , decreased breath sounds at bases HEART: S1 S2 regular rate and rhythm , ABDOMEN: Soft , no tenderness EXTREMITIES: No edema feet - Labs CBC & Chem 7: 05/31/22 06:04 06/01/22 06:47 Labs: Microbiology - Last 24 Hours (Table) 05/31/22 12:46 Blood Culture Gram Stain - Preliminary Blood Blood Culture - Preliminary Staphylococcus aureus 05/30/22 12:30 Blood Culture Gram Stain - Preliminary Blood Blood Culture - Preliminary Staphylococcus aureus 05/30/22 12:31 Urine Culture - Preliminary Urine,Voided Presumptive Staph aureus Gram Neg Bacilli Assessment and Plan (1) Discitis thoracic region Current Visit: Yes Status: Acute Code(s): M46.44 - DISCITIS, UNSPECIFIED, THORACIC REGION SNOMED Code(s): 975670668 Plan: 1patient presented to hospital with sepsis and respiratory have fever elevated white count tachycardia in this patient significant mid back pain with abnormal CT suspicious for T9-10 discitis patient review of urine history of staph infection posthaste cyst removed from the back however I do not have any clear documentation of the same. 2we are waiting for MRI of the thoracic spine to better define underlying pathology and to make sure there is no evidence of any paraspinal collection t hat may need to be drained. 3blood culture with MSSA so we will not need any aspirate unless there is evidence of abscess 4 blood cultures daily to document clearance of bacteremia before placing a PICC line 5-cefazolin 2 g every 8 hour to continue Time with Patient: Less than 30
--- NOTE | 2022-06-01 17:23 | P.PN ---
Progress Note - Text Progress Note Date: 06/01/22 Chief Complaint: Upper back pain This is a pleasant 62-year-old patient who follows with Dr. Laguerre. Patient has a known history of arthritis. About 6 weeks ago patient was diagnosed with a UTI and told he had a staph infection. Initially given doxycycline and then ciprofloxacin. Patient also had a bout of hematuria. Had been taking ibuprofen. This was discontinued by Dr. Harmon. Patient been having mid thoracic pain for 6 weeks progressively getting worse. Again more and more uncomfortable. Patient now presented with significant pain finding even difficult to move about. Patient has some limited range of motion on the right leg because of hip problem. Computed tomography scan of the ER didn't show evidence of discitis. Started on IV vancomycin and ceftriaxone in the ER. Having fevers. Admitted with T9/T10 discitis. Acute UTI with cystitis. Started on IV vancomycin. 05/31/2022: Patient still having significant spinal pain. Oral intake fair. On IV vancomycin. And ceftriaxone. Blood cultures positive for mSSA. June 01: Some improvement in back pain. Patient has been out of bed. Antibiotic changed to IV Ancef. Blood culture positive for MSSA. Pending MRI. Blood pressure running high. Start lisinopril hydrochlorothiazide 20/12.5 twice daily Active Medications Acetaminophen (Acetaminophen Tab 325 Mg Tab) 650 mg PO Q6HR PRN PRN Reason: Fever and/ or Pain Last Admin: 05/31/22 03:43 Dose: 650 mg Hydrocodone Bitart/Acetaminophen (Hydrocodone/Apap 5-325mg 1 Each Tab) 1 each PO Q4HR PRN PRN Reason: Moderate Pain Last Admin: 06/01/22 06:32 Dose: 1 each Calcium Carbonate/Glycine (Calcium Carbonate 500 Mg Chewable) 1,000 mg PO Q4HR PRN PRN Reason: Dyspepsia Cyclobenzaprine HCl (Cyclobenzaprine 10 Mg Tab) 10 mg PO TID PRN PRN Reason: Muscle Spasm Last Admin: 05/31/22 23:39 Dose: 10 mg Enoxaparin Sodium (Enoxaparin 40 Mg/0.4 Ml Syringe) 40 mg SQ DAILY OFELIA Last Admin: 06/01/22 09:01 Dose: Not Given Lisinopril/HCTZ (Lisinopril-Hctz 20-12.5 Mg 1 Each Tab) 1 each PO BID [facility] Last Admin: 06/01/22 11:51 Dose: 1 each Hydromorphone HCl (Hydromorphone 0.5 Mg/0.5 Ml Syringe) 0.5 mg IVP Q3HR PRN PRN Reason: Moderate Pain Last Admin: 05/30/22 16:45 Dose: 0.5 mg Hydromorphone HCl (Hydromorphone 1 Mg/Ml 1 Ml Syringe) 1 mg IVP Q3HR PRN PRN Reason: Severe Pain Last Admin: 06/01/22 06:32 Dose: 1 mg Sodium Chloride (Saline 0.9%) 1,000 mls @ 75 mls/hr IV .[id number] [facility] Last Admin: 06/01/22 08:51 Dose: 75 mls/hr Cefazolin Sodium 2 gm/ Sodium (Chloride) 50 mls @ 100 mls/hr IVPB Q8HR [facility]; Protocol Last Admin: 06/01/22 16:40 Dose: 100 mls/hr Lactulose (Lactulose 20 Gm/30 Ml Cup) 20 gm PO DAILY PRN PRN Reason: Constipation Lorazepam (Lorazepam 0.5 Mg Tab) 0.5 mg PO Q6HR PRN PRN Reason: Anxiety Naloxone HCl (Naloxone 0.4 Mg/Ml 1 Ml Vial) 0.2 mg IV Q2M PRN PRN Reason: Opioid Reversal Naproxen (Naproxen 250 Mg Tab) 250 mg PO TID [facility] Last Admin: 06/01/22 16:40 Dose: 250 mg Ondansetron HCl (Ondansetron 4 Mg/2 Ml Vial) 4 mg IVP Q8HR PRN PRN Reason: Nausea And Vomiting Tamsulosin HCl (Tamsulosin 0.4 Mg Cap.Er.24h) 0.4 mg PO HS [facility] Last Admin: 05/31/22 23:40 Dose: 0.4 mg Temazepam (Temazepam 15 Mg Cap) 15 mg PO HS PRN PRN Reason: Insomnia Past medical history to include: Osteoarthritis. Social history: Patient smoked for about 20 years stopped in 1991. Alcohol occasionally. . Owns a local restaurant [facility] Family history: Heart disease and renal problems Physical examination: VITAL SIGNS: 98.4, 87, 16, 1 5185, 93% room air GENERAL: laying in bed awake not in distress EYES: Pupils equal. Conjunctiva normal. HEENT: External appearance of nose and ears normal, oral cavity grossly normal. NECK: JVD not raised; masses not palpable. HEART: First and second heart sounds are normal; no edema. LUNGS: Respiratory rate normal; clear to auscultation. ABDOMEN: Soft, nontender, liver spleen not palpable, no masses palpable. PSYCH: Alert and oriented x3; mood and affect normal. MUSCULOSKELETAL tenderness over the midthoracic spine. Limited range of motion in the spine. INVESTIGATIONS, reviewed in the clinical context: May 31: White count 15.8 hemoglobin 12.9 potassium 3.5 creatinine 9.1 CRP 22.2 Blood culture: Staphylococcus aureus White count 14.7 hemoglobin 12.6 platelets 462 sodium 133 progression 3.6 BUN 12 creatinine 0.74 UA positive for leukoesterase, WBC COVID 19/influenza type A and type B: Not detected Computed tomography scan abdomen and pelvis without contrast: Bilateral renal cyst. Scattered diverticula throughout the colon. Destructive changes to T9- T10 with surrounding inflammation. Multilevel disc herniation from the spine. Right hip arthroplasty changes present. Hepatic steatosis. Assessment and plan: -Patient presents with worsening pain in the upper thoracic spines close to 6 weeks. D-dimer UTI with a Staphylococcus infection. There was treated outpatient with doxycycline and ciprofloxacin. Patient's had been having intermittent fevers. Worsening thoracic spine symptoms. Now found to T9-T10 discitis. Source is from UTI. MSSA. IV Ancef. Pending MRI. Follow with ID and orthopedics. -Sepsis with blood cultures positive for MSSA: Slow to respond IV fluids, IV Ancef -Acute UTI with cystitis recurrent Consult urology -DJD of the thoracolumbar cervical spine. NSAIDs -Hepatic steatosis -Colonic diverticulosis, asymptomatic IV Ancef Subcu Lovenox. NSAIDs. Pending MRI spine. Discussed with the patient. Increase activity.
[2022-06-01] MEDS: TAMSULOSIN 0.4 MG CAP.ER.24H PO SCH (20:33)
[2022-06-02] MEDS: HYDROmorphone 1 MG/ML 1 ML SYRINGE IVP PRN ×2 (03:51→19:56)
[2022-06-02 07:27] LABS: African American GFR (CKD) >90 (>60 ml/min/1.73 sqM); Non-African American GFR(CKD) >90 (>60 ml/min/1.73 sqM)
[2022-06-02] MEDS: LISINOPRIL-HCTZ 20-12.5 MG 1 EACH TAB PO SCH ×2 (09:05→21:11)
[2022-06-02] MEDS: NAPROXEN 250 MG TAB PO SCH ×3 (09:05→21:11)
[2022-06-02] MEDS: ENOXAPARIN 40 MG/0.4 ML SYRINGE SQ SCH (09:05)
[2022-06-02] MEDS: SODIUM CHLORIDE 0.9% 1,000 ML IV SCH (10:01)
--- NOTE | 2022-06-02 11:54 | P.GSCN ---
History of Present Illness Consult date: 06/01/22 History of present illness: 62 yo male known to our office for bph and recurrent prostatitis. Came in with back pain. Appears to have thoracic discitis. Has an abnormal ua and a culture growing staph epi and a gnr. He has a normal ct scan urologically. He has an elevated wbc but that could be due to his discitis. His creatinine is normal. He is afebrile. He just had an MRI but the results are unknown. He had cystoscopy by another urologist which was normal. Based on previous evaluation I suspect he has chronic prostatitis. Review of Systems All systems: negative - Constitutional Denies fever, Denies weight loss - EENT Eyes: denies blurred vision Ears, nose, mouth and throat: Denies dysphagia - Cardiovascular Denies chest pain, Denies shortness of breath - Respiratory Denies cough, Denies 7 - Gastrointestinal Reports as per HPI - Genitourinary Denies dysuria, Denies hematuria - Integumentary Denies rash, Denies unusual bruising - Neurological Denies headaches, Denies syncope - Hematologic/Lymphatic Denies easy bleeding, Denies easy bruising Past Medical History Past Medical History: Osteoarthritis (OA) Additional Past Medical History / Comment(s): Staph infection from cyst removal in shoulder 02/2022 History of Any Multi-Drug Resistant Organisms: None Reported Past Surgical History: Orthopedic Surgery Additional Past Surgical History / Comment(s): cyst removed from L posterior shoulder, R elbow fracture with hardware, total R hip arthroplasty, R knee surgery for meniscus, L bicep muscle tear with repair, partial thyroidectomy, colonoscopies/benign polypectomies. Past Anesthesia/Blood Transfusion Reactions: No Reported Reaction Past Psychological History: No Psychological Hx Reported Smoking Status: Former smoker Past Alcohol Use History: None Reported Past Drug Use History: Marijuana - Past Family History Father Family Medical History: Renal Disease Additional Family Medical History / Comment(s): Father had heart problems and from renal failure. Mother Family Medical History: Cancer Additional Family Medical History / Comment(s): Mother of stomach cancer. Medications and Allergies Home Medications Medication Instructions Recorded Confirmed Type Alfuzosin HCl [Alfuzosin HCl ER] 10 mg PO HS 05/30/22 05/30/22 History Cyclobenzaprine [Flexeril] 10 mg PO TID PRN 05/30/22 05/30/22 History Ibuprofen [Motrin] 800 mg PO Q8H PRN 05/30/22 05/30/22 History traMADol HCl [Ultram] 50 mg PO Q4HR PRN 05/30/22 05/30/22 History Allergies Allergy/AdvReac Type Severity Reaction Status Date / Time No Known Allergies Allergy Verified 05/30/22 14:01 Surgical - Exam Vital Signs Temp Pulse Resp BP Pulse Ox 100.2 F H 119 H 18 170/93 95 05/30/22 11:44 05/30/22 11:44 05/30/22 11:44 05/30/22 11:44 05/30/22 11:44 - General Mild distress well developed, well nourished - ENT no hearing loss - Respiratory normal expansion, normal respiratory effort - Cardiovascular Rhythm: regular - Abdomen Abdomen: soft, non tender - Genitourinary normal penis with no external lesions, testicles present - Integumentary no growths - Neurologic normal coordination, normal sensation - Musculoskeletal normal posture - Psychiatric oriented to person, oriented to place, speech is normal, memory intact Results - Labs 05/31/22 06:04 06/02/22 06:28 Microbiology - Last 24 Hours (Table) 05/31/22 12:46 Blood Culture Gram Stain - Preliminary Blood Blood Culture - Preliminary Staphylococcus aureus 05/30/22 12:30 Blood Culture Gram Stain - Preliminary Blood Blood Culture - Preliminary Staphylococcus aureus 05/30/22 12:31 Urine Culture - Preliminary Urine,Voided Presumptive Staph aureus Gram Neg Bacilli Diabetes panel 06/01/22 Range/Units 06:47 Creatinine 0.6 (0.6-1.5) mg/dL Pituitary panel 06/01/22 Range/Units 06:47 Creatinine 0.6 (0.6-1.5) mg/dL Adrenal panel 06/01/22 Range/Units 06:47 Creatinine 0.6 (0.6-1.5) mg/dL - Imaging CT scan - abdomen: report reviewed, image reviewed CT scan - pelvis: report reviewed, image reviewed Assessment and Plan Assessment: Impression: Chronic prostatitis. Thoracic discitis. Question correlation Recommendations: The patient will need to be on oral antibiotics for an extended period time to treat the chronic prostatitis. He will follow-up in my office. Nothing further urologic needs to be done during this hospitalization.
--- NOTE | 2022-06-02 12:05 | MR ---
EXAMINATION TYPE: MR thoracic spine wo/w con DATE OF EXAM: 06/02/2022 COMPARISON: CT abdomen and pelvis May 30, 2022 HISTORY: discitis/abscess -T9-[address] TECHNIQUE: Multiplanar, multisequence imaging of thoracic spine is performed without contrast FINDINGS: Spinal cord shows normal course, caliber, and signal as it courses the thoracic spine. Ally tebral body heights and alignment are satisfactory. At least moderate multilevel anterior spurring is redemonstrated. Corresponding to recent CT there is heterogeneous increased signal in the T10-T11 di sc space with some heterogeneous increased T2 signal in the superior T11 endplate. There is abnormal enhancing tissue anteriorly corresponding to recent CT where there is bony destructive changes and in creased soft tissue density. No definitive abnormal enhancement in the disc with heterogeneous enhanc ement involving the adjacent T10 and T11 vertebra. No definitive well-formed fluid collection or drai nable abscess. Incidental large disc herniation T8-T9 level sagittal image 8 effaces anterior thecal sac. Persistent small left pleural effusion similar to recent CT. IMPRESSION: Destructive soft tissue centered anterior T10-T11 level could reflect soft tissue infecti on or phlegmon. Correlate clinically. Some abnormal edema and enhancement of the adjacent vertebra. N o definitive disc enhancement or discitis. No well-formed fluid collection or drainable abscess noted .
[2022-06-02 13:05] LABS: Basophils # (A) 0.1 k/uL (0-0.2); Basophils % (A) 1 %; Eosinophils # (A) 0.2 k/uL (0-0.7); Eosinophils % (A) 2 %; HGB 13.7 gm/dL (13.0-17.5); Hypochromasia Slight; Lymphocytes # (A) 0.9 k/uL (1.0-4.8); Lymphocytes % (A) 9 %; MCH 29.3 pg (25.0-35.0); MCV 91.7 fL (80.0-100.0); Mean Platelet Volume 7.1; Monocytes # (A) 0.6 k/uL (0-1.0); Monocytes % (A) 6 %; Neutrophils # (A) 8.3 k/uL (1.3-7.7); Neutrophils % (A) 82 %; Platelet Count 436 k/uL (150-450); RBC 4.69 m/uL (4.30-5.90); RDW 14.3 % (11.5-15.5); WBC 10.1 k/uL (3.8-10.6)
--- NOTE | 2022-06-02 16:52 | P.PN ---
Progress Note - Text Progress Note Date: 06/02/22 Chief Complaint: Upper back pain This is a pleasant 62-year-old patient who follows with Dr. Laguerre. Patient has a known history of arthritis. About 6 weeks ago patient was diagnosed with a UTI and told he had a staph infection. Initially given doxycycline and then ciprofloxacin. Patient also had a bout of hematuria. Had been taking ibuprofen. This was discontinued by Dr. Harmon. Patient been having mid thoracic pain for 6 weeks progressively getting worse. Again more and more uncomfortable. Patient now presented with significant pain finding even difficult to move about. Patient has some limited range of motion on the right leg because of hip problem. Computed tomography scan of the ER didn't show evidence of discitis. Started on IV vancomycin and ceftriaxone in the ER. Having fevers. Admitted with T9/T10 discitis. Acute UTI with cystitis. Started on IV vancomycin. 05/31/2022: Patient still having significant spinal pain. Oral intake fair. On IV vancomycin. And ceftriaxone. Blood cultures positive for mSSA. June 01: Some improvement in back pain. Patient has been out of bed. Antibiotic changed to IV Ancef. Blood culture positive for MSSA. Pending MRI. Blood pressure running high. Start lisinopril hydrochlorothiazide 20/12.5 twice daily June 02: Remains on IV Ancef. Back pain better. Has been able to get about the room. Repeat blood cultures have been negative. Blood pressure running on the high side. Cutback IV fluids. Eating well. Active Medications Acetaminophen (Acetaminophen Tab 325 Mg Tab) 650 mg PO Q6HR PRN PRN Reason: Fever and/ or Pain Last Admin: 05/31/22 03:43 Dose: 650 mg Hydrocodone Bitart/Acetaminophen (Hydrocodone/Apap 5-325mg 1 Each Tab) 1 each PO Q4HR PRN PRN Reason: Moderate Pain Last Admin: 06/01/22 20:39 Dose: 1 each Calcium Carbonate/Glycine (Calcium Carbonate 500 Mg Chewable) 1,000 mg PO Q4HR PRN PRN Reason: Dyspepsia Cyclobenzaprine HCl (Cyclobenzaprine 10 Mg Tab) 10 mg PO TID PRN PRN Reason: Muscle Spasm Last Admin: 05/31/22 23:39 Dose: 10 mg Enoxaparin Sodium (Enoxaparin 40 Mg/0.4 Ml Syringe) 40 mg SQ DAILY [facility] Last Admin: 06/02/22 09:05 Dose: Not Given Lisinopril/HCTZ (Lisinopril-Hctz 20-12.5 Mg 1 Each Tab) 1 each PO BID [facility] Last Admin: 06/02/22 09:05 Dose: 1 each Hydromorphone HCl (Hydromorphone 0.5 Mg/0.5 Ml Syringe) 0.5 mg IVP Q3HR PRN PRN Reason: Moderate Pain Last Admin: 05/30/22 16:45 Dose: 0.5 mg Hydromorphone HCl (Hydromorphone 1 Mg/Ml 1 Ml Syringe) 1 mg IVP Q3HR PRN PRN Reason: Severe Pain Last Admin: 06/02/22 03:51 Dose: 1 mg Cefazolin Sodium 2 gm/ Sodium (Chloride) 50 mls @ 100 mls/hr IVPB Q8HR [facility]; Protocol Last Admin: 06/02/22 15:19 Dose: 100 mls/hr Lactulose (Lactulose 20 Gm/30 Ml Cup) 20 gm PO DAILY PRN PRN Reason: Constipation Lorazepam (Lorazepam 0.5 Mg Tab) 0.5 mg PO Q6HR PRN PRN Reason: Anxiety Last Admin: 06/02/22 10:01 Dose: 0.5 mg Naloxone HCl (Naloxone 0.4 Mg/Ml 1 Ml Vial) 0.2 mg IV Q2M PRN PRN Reason: Opioid Reversal Naproxen (Naproxen 250 Mg Tab) 250 mg PO TID [facility] Last Admin: 06/02/22 15:18 Dose: 250 mg Ondansetron HCl (Ondansetron 4 Mg/2 Ml Vial) 4 mg IVP Q8HR PRN PRN Reason: Nausea And Vomiting Tamsulosin HCl (Tamsulosin 0.4 Mg Cap.Er.24h) 0.4 mg PO HS [facility] Last Admin: 06/01/22 20:33 Dose: 0.4 mg Temazepam (Temazepam 15 Mg Cap) 15 mg PO HS PRN PRN Reason: Insomnia Past medical history to include: Osteoarthritis. Social history: Patient smoked for about 20 years stopped in 1991. Alcohol occasionally. . 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 Conjunctiva normal. HEENT: External appearance of nose and ears normal, oral cavity grossly normal. NECK: JVD not raised; masses not palpable. HEART: First and second heart sounds are normal; no edema. LUNGS: Respiratory rate normal; clear to auscultation. ABDOMEN: Soft, nontender, liver spleen not palpable, no masses palpable. PSYCH: Alert and oriented x3; mood and affect normal. MUSCULOSKELETAL much improved tenderness over the midthoracic spine. INVESTIGATIONS, reviewed in the clinical context: MRI thoracic spine: Destructive soft tissue centered anterior T10-T11. 7 abnormal edema and enhancement of the and just vertebra. No definite disc enhancement on discitis. June 02: WBC 10.1 hemoglobin 10.7 CRP 18.4 May 31: White count 15.8 hemoglobin 12.9 potassium 3.5 creatinine 9.1 CRP 22.2 Blood culture: Staphylococcus aureus White count 14.7 hemoglobin 12.6 platelets 462 sodium 133 progression 3.6 BUN 12 creatinine 0.74 UA positive for leukoesterase, WBC COVID 19/influenza type A and type B: Not detected Computed tomography scan abdomen and pelvis without contrast: Bilateral renal cyst. Scattered diverticula throughout the colon. Destructive changes to T9- T10 with surrounding inflammation. Multilevel disc herniation from the spine. Right hip arthroplasty changes present. Hepatic steatosis. Assessment and plan: -Possible soft tissue infection/phlegmon in the area of the-T11. Some abnormal edema and has been on and just vertebra. No obvious disc enhancement.: Clinically better Continue IV Ancef. Pending input from orthopedics. -Sepsis with blood cultures positive for MSSA: Repeat culture negative IV fluids, IV Ancef -Acute UTI with cystitis recurrent from underlying chronic prostatitis Consult urology -Chronic prostatitis Patient already on IV Ancef -DJD of the thoracolumbar cervical spine. NSAIDs -Hepatic steatosis -Colonic diverticulosis, asymptomatic IV Ancef Subcu Lovenox. NSAIDs.. Results discussed with the patient. Clinically patient doing better. No white count or fever. Pain is much improved. Await input from orthopedics.
--- NOTE | 2022-06-02 20:00 | P.PN ---
Subjective Progress Note Date: 06/02/22 Principal diagnosis: T910 discitis and bacteremia Patient is a 62-year-old male with a chronic pain to the mid back with a recent worsening did have abnormal CT concerning for discitis now with evidence of MSSA bacteremia. MRI of the spine was completed this morning r esults are pending On today's evaluation that is 06/02/2022, the patient continues to be afebrile, the patient is feeling better, the mid back pain has decreased in intensity, patient denies having any chest pain shortness of breath or cough no nausea no vomiting no abdominal pain no diarrhea Objective - Vital Signs Vital signs: Vital Signs Temp 98.3 F 06/02/22 08:00 Pulse 102 H 06/02/22 08:00 Resp 17 06/02/22 08:00 BP 176/98 06/02/22 08:00 Pulse Ox 92 L 06/02/22 08:00 FiO2 Intake & Output 06/01/22 06/02/22 06/02/22 18:59 06:59 18:59 Intake Total 298 1450 120 Balance 298 1450 120 Intake: Intake, IV Titration 950 Amount Sodium Chloride 0.9% 1, 900 000 ml @ 75 mls/hr IV . [id number] [facility] Rx#:[id number] ceFAZolin 2 gm In Sodium 50 Chloride 0.9% 50 ml @ 100 mls/hr IVPB Q8HR [facility] Rx# :[id number] Oral 298 500 120 Other: # Voids 2 4 # Bowel Movements 1 - Exam GENERAL DESCRIPTION: Middle-aged male lying in bed in no distress RESPIRATORY SYSTEM: Unlabored breathing , decreased breath sounds at bases HEART: S1 S2 regular rate and rhythm , ABDOMEN: Soft , no tenderness EXTREMITIES: No edema feet - Labs CBC & Chem 7: 06/02/22 06:28 06/02/22 06:28 Labs: Abnormal Lab Results - Last 24 Hours (Table) 06/02/22 Range/Units 06:28 Creatinine 0.59 L (0.66-1.25) mg/dL Microbiology - Last 24 Hours (Table) 06/01/22 06:47 Blood Culture Gram Stain - Preliminary Blood 06/01/22 06:47 Blood Culture - Final Blood 05/30/22 12:31 Urine Culture - Final Urine,Voided Staphylococcus aureus Klebsiella oxytoca 05/31/22 12:46 Blood Culture Gram Stain - Preliminary Blood Blood Culture - Preliminary Staphylococcus aureus 05/30/22 12:30 Blood Culture Gram Stain - Preliminary Blood Blood Culture - Preliminary Staphylococcus aureus Assessment and Plan (1) Discitis thoracic region Current Visit: Yes Status: Acute Code(s): M46.44 - DISCITIS, UNSPECIFIED, THORACIC REGION SNOMED Code(s): 243822204 Plan: 1patient presented to hospital with sepsis and respiratory have fever elevated white count tachycardia in this patient significant mid back pain with abnormal CT suspicious for T9-10 discitis patient review of urine history of staph infection posthaste cyst removed from the back however I do not have any clear documentation of the same. 2we are waiting for MRI of the thoracic spine to better define underlying pathology and to make sure there is no evidence of any paraspinal collection that may need to be drained. MRI was completed this morning with results currently pending 3blood cultures 06/01/2020 test positive, blood culture were repeated this morning and will be repeated tomorrow morning to document recurrence of bacteremia 4patient will continue with cefazolin 2 g every 8 hour will add Cipro 500 twice a day to cover for the Klebsiella seen in the urine and concern for possible chronic prostatitis Time with Patient: Less than 30
[2022-06-02] MEDS: CIPROFLOXACIN HCL 500 MG TAB PO SCH (21:11)
[2022-06-02] MEDS: TAMSULOSIN 0.4 MG CAP.ER.24H PO SCH (21:11)
[2022-06-02] MEDS: METOPROLOL TARTRATE 25 MG TAB PO SCH (21:12)
[2022-06-03] MEDS: CIPROFLOXACIN HCL 500 MG TAB PO SCH ×2 (08:41→21:01)
[2022-06-03] MEDS: LISINOPRIL-HCTZ 20-12.5 MG 1 EACH TAB PO SCH ×2 (08:41→21:01)
[2022-06-03] MEDS: CYCLOBENZAPRINE 10 MG TAB PO PRN (08:41)
[2022-06-03] MEDS: ENOXAPARIN 40 MG/0.4 ML SYRINGE SQ SCH (08:41)
[2022-06-03] MEDS: NAPROXEN 250 MG TAB PO SCH ×3 (08:41→21:01)
[2022-06-03] MEDS: METOPROLOL TARTRATE 25 MG TAB PO SCH ×2 (08:41→21:01)
[2022-06-03 08:47] LABS: African American GFR (CKD) >90 (>60 ml/min/1.73 sqM); Non-African American GFR(CKD) >90 (>60 ml/min/1.73 sqM)
--- NOTE | 2022-06-03 15:32 | P.PN ---
Progress Note - Text Progress Note Date: 06/03/22 Chief Complaint: Upper back pain This is a pleasant 62-year-old patient who follows with Dr. Laguerre. Patient has a known history of arthritis. About 6 weeks ago patient was diagnosed with a UTI and told he had a staph infection. Initially given doxycycline and then ciprofloxacin. Patient also had a bout of hematuria. Had been taking ibuprofen. This was discontinued by Dr. Harmon. Patient been having mid thoracic pain for 6 weeks progressively getting worse. Again more and more uncomfortable. Patient now presented with significant pain finding even difficult to move about. Patient has some limited range of motion on the right leg because of hip problem. Computed tomography scan of the ER didn't show evidence of discitis. Started on IV vancomycin and ceftriaxone in the ER. Having fevers. Admitted with T9/T10 discitis. Acute UTI with cystitis. Started on IV vancomycin. 05/31/2022: Patient still having significant spinal pain. Oral intake fair. On IV vancomycin. And ceftriaxone. Blood cultures positive for mSSA. June 01: Some improvement in back pain. Patient has been out of bed. Antibiotic changed to IV Ancef. Blood culture positive for MSSA. Pending MRI. Blood pressure running high. Start lisinopril hydrochlorothiazide 20/12.5 twice daily June 02: Remains on IV Ancef. Back pain better. Has been able to get about the room. Repeat blood cultures have been negative. Blood pressure running on the high side. Cutback IV fluids. Eating well. June 03: Doing much better. No pain. No fever. Family visiting. Cultures remain negative. Discussed with the patient and at the bedside. Questions answered. Discussed yesterday Dr. Valle from orthopedics. If any surgical intervention currently. Active Medications Acetaminophen (Acetaminophen Tab 325 Mg Tab) 650 mg PO Q6HR PRN PRN Reason: Fever and/ or Pain Last Admin: 05/31/22 03:43 Dose: 650 mg Hydrocodone Bitart/Acetaminophen (Hydrocodone/Apap 5-325mg 1 Each Tab) 1 each PO Q4HR PRN PRN Reason: Moderate Pain Last Admin: 06/01/22 20:39 Dose: 1 each Calcium Carbonate/Glycine (Calcium Carbonate 500 Mg Chewable) 1,000 mg PO Q4HR PRN PRN Reason: Dyspepsia Ciprofloxacin (Ciprofloxacin Hcl 500 Mg Tab) 500 mg PO BID [facility]; Protocol Last Admin: 06/03/22 08:41 Dose: 500 mg Cyclobenzaprine HCl (Cyclobenzaprine 10 Mg Tab) 10 mg PO TID PRN PRN Reason: Muscle Spasm Last Admin: 06/03/22 08:41 Dose: 10 mg Enoxaparin Sodium (Enoxaparin 40 Mg/0.4 Ml Syringe) 40 mg SQ DAILY [facility] Last Admin: 06/03/22 08:41 Dose: 40 mg Lisinopril/HCTZ (Lisinopril-Hctz 20-12.5 Mg 1 Each Tab) 1 each PO BID [facility] Last Admin: 06/03/22 08:41 Dose: 1 each Hydromorphone HCl (Hydromorphone 0.5 Mg/0.5 Ml Syringe) 0.5 mg IVP Q3HR PRN PRN Reason: Moderate Pain Last Admin: 05/30/22 16:45 Dose: 0.5 mg Hydromorphone HCl (Hydromorphone 1 Mg/Ml 1 Ml Syringe) 1 mg IVP Q3HR PRN PRN Reason: Severe Pain Last Admin: 06/02/22 19:56 Dose: 1 mg Cefazolin Sodium 2 gm/ Sodium (Chloride) 50 mls @ 100 mls/hr IVPB Q8HR [facility]; Protocol Last Admin: 06/03/22 15:07 Dose: 100 mls/hr Lactulose (Lactulose 20 Gm/30 Ml Cup) 20 gm PO DAILY PRN PRN Reason: Constipation Lorazepam (Lorazepam 0.5 Mg Tab) 0.5 mg PO Q6HR PRN PRN Reason: Anxiety Last Admin: 06/02/22 10:01 Dose: 0.5 mg Metoprolol Tartrate (Metoprolol Tartrate 25 Mg Tab) 25 mg PO BID [facility] Last Admin: 06/03/22 08:41 Dose: 25 mg Naloxone HCl (Naloxone 0.4 Mg/Ml 1 Ml Vial) 0.2 mg IV Q2M PRN PRN Reason: Opioid Reversal Naproxen (Naproxen 250 Mg Tab) 250 mg PO TID [facility] Last Admin: 06/03/22 15:03 Dose: 250 mg Ondansetron HCl (Ondansetron 4 Mg/2 Ml Vial) 4 mg IVP Q8HR PRN PRN Reason: Nausea And Vomiting Tamsulosin HCl (Tamsulosin 0.4 Mg Cap.Er.24h) 0.4 mg PO HS [facility] Last Admin: 06/02/22 21:11 Dose: 0.4 mg Temazepam (Temazepam 15 Mg Cap) 15 mg PO HS PRN PRN Reason: Insomnia Past medical history to include: Osteoarthritis. Social history: Patient smoked for about 20 years stopped in 1991. Alcohol occasionally. . 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 Conjunctiva normal. HEENT: External appearance of nose and ears normal, oral cavity grossly normal. NECK: JVD not raised; masses not palpable. HEART: First and second heart sounds are normal; no edema. LUNGS: Respiratory rate normal; clear to auscultation. ABDOMEN: Soft, nontender, liver spleen not palpable, no masses palpable. PSYCH: Alert and oriented x3; mood and affect normal. MUSCULOSKELETAL much improved tenderness over the midthoracic spine. INVESTIGATIONS, reviewed in the clinical context: MRI thoracic spine: Destructive soft tissue centered anterior T10-T11. 7 a bnormal edema and enhancement of the and just vertebra. No definite disc enhancement on discitis. June 02: WBC 10.1 hemoglobin 10.7 CRP 18.4 May 31: White count 15.8 hemoglobin 12.9 potassium 3.5 creatinine 9.1 CRP 22.2 Blood culture: Staphylococcus aureus White count 14.7 hemoglobin 12.6 platelets 462 sodium 133 progression 3.6 BUN 12 creatinine 0.74 UA positive for leukoesterase, WBC COVID 19/influenza type A and type B: Not detected Computed tomography scan abdomen and pelvis without contrast: Bilateral renal cyst. Scattered diverticula throughout the colon. Destructive changes to T9- T10 with surrounding inflammation. Multilevel disc herniation from the spine. Right hip arthroplasty changes present. Hepatic steatosis. Assessment and plan: -Possible soft tissue infection/phlegmon in the area of the-T11. Some abnormal edema and has been on and just vertebra. No obvious disc enhancement.: Clinically better Continue IV Ancef. Discussed with Dr. Valle from orthopedics. Not for any surgical intervention present time as patient is clinically improving -Sepsis with blood cultures positive for MSSA: Repeat culture negative IV fluids, IV Ancef -Acute UTI with cystitis recurrent from underlying chronic prostatitis Consult urology -Chronic prostatitis Patient already on IV Ancef -DJD of the thoracolumbar cervical spine. NSAIDs -Hepatic steatosis -Colonic diverticulosis, asymptomatic IV Ancef . NSAIDs.. For outpatient antibiotics per ID. Discussed with patient and .
[2022-06-03] MEDS: TAMSULOSIN 0.4 MG CAP.ER.24H PO SCH (21:01)
[2022-06-04 06:13] LABS: Basophils # (A) 0.2 k/uL (0-0.2); Basophils % (A) 2 %; Eosinophils # (A) 0.2 k/uL (0-0.7); Eosinophils % (A) 1 %; HGB 13.9 gm/dL (13.0-17.5); Lymphocytes # (A) 1.2 k/uL (1.0-4.8); Lymphocytes % (A) 11 %; MCHC 32.2 g/dL (31.0-37.0); MCV 89.9 fL (80.0-100.0); Mean Platelet Volume 6.5; Monocytes # (A) 0.7 k/uL (0-1.0); Monocytes % (A) 6 %; Neutrophils # (A) 9.2 k/uL (1.3-7.7); Neutrophils % (A) 79 %; Platelet Count 481 k/uL (150-450); RBC 4.78 m/uL (4.30-5.90); RDW 14.4 % (11.5-15.5); WBC 11.7 k/uL (3.8-10.6)
[2022-06-04] MEDS: CIPROFLOXACIN HCL 500 MG TAB PO SCH ×2 (07:51→20:45)
[2022-06-04] MEDS: LISINOPRIL-HCTZ 20-12.5 MG 1 EACH TAB PO SCH ×2 (07:52→20:45)
[2022-06-04] MEDS: NAPROXEN 250 MG TAB PO SCH ×3 (07:52→22:27)
[2022-06-04] MEDS: ENOXAPARIN 40 MG/0.4 ML SYRINGE SQ SCH (07:53)
[2022-06-04] MEDS: METOPROLOL TARTRATE 25 MG TAB PO SCH ×2 (07:53→20:45)
--- NOTE | 2022-06-04 08:13 | P.PN ---
Progress Note - Text Progress Note Date: 06/04/22 The patient is seen and examined at bedside. He says his back is feeling quite good. He feels his pain is significant improved and is happy with his improvement. He has been ambulating and is moving around quite well. He is not having any problems with his arms or legs. He denies any neurologic changes. He has not really been wearing his brace as he says it is uncomfortable for him. He has remained afebrile. Afebrile stable vital signs. Preliminary results of his recent blood culture are negative thus far His upper extremity his lower extremity have 5 over 5 strength throughout. Abdomen soft nontender The thoracic MRI is reviewed Assessment and plan Anterior thoracic T10 11 infection, with some bony distraction without obvious instability Clinical discitis at T10 11 without neurologic compromise Thoracic back pain improving with antibiotics Positive blood cultures In terms of the patient's infectious process there is some bony distraction but there does not appear to be obvious instability. There is no obvious fluid collection or abscess at the anterior thoracic infectious site. The patient is doing much better with IV antibiotics and from a spine standpoint he could be treated conservatively at this point with continued long-term antibiotics. There is soft tissue infectious process and if he were to need intervention his best approach may be anterior and it would likely be helpful to have vascular or cardiothoracic surgery evaluate the patient as well if the need for surgical intervention were to arise. I will go ahead and have actually surgery get involved in the case well further recommendation and at least establish contact in case he were to need operative intervention
[2022-06-04] MEDS: NAFCILLIN 2 GM in DEXTROSE 5% IN WATER 100 ML IVPB SCH ×8 (11:42→23:17)
--- NOTE | 2022-06-04 12:10 | P.GSCN ---
History of Present Illness Consult date: 06/04/22 Reason for Consult: Anterior paraspinal infection T10-11 Requesting physician: Shari Garland History of present illness: This a pleasant 62-year-old male who had presented to the emergency department on 05/30/2022 with complaints of back pain and fever. Apparently patient recently developed a staph infection approximately 3 months ago was treated. Also in February of this year he had a small cyst that was removed from the shoulder posteriorly and developed staph infection after that as well. Orthopedics is following patient closely, he is currently being treated for anterior thoracic infection and discitis, vascular surgery was consulted to for possible assistance if patient is to undergo surgery. CT abdomen and pelvis had findings suspicious for osteomyelitis/discitis of the T9 through T10. Thoracic MRI shows destructive soft tissue center anteriorly T10 through T11 level could reflect soft tissue infection or phlegmon. Correlate clinically. Abnormal edema and enhancement of the adjacent vertebral. No definitive disc enhancement or discitis. No well-formed fluid collection or drainable abscess noted. At this time the patient states pain has been improving with antibiotics. He is been afebrile. He denies any shortness of breath, chest pain, abdominal pain, nausea or vomiting. WBC 11.7 hemoglobin 13.9 platelet count 481,000 Review of Systems A 14 point review systems was completed all pertinent positives and negatives as stated in the HPI. Past Medical History Past Medical History: Osteoarthritis (OA) Additional Past Medical History / Comment(s): Staph infection from cyst removal in shoulder 02/2022 History of Any Multi-Drug Resistant Organisms: None Reported Past Surgical History: Orthopedic Surgery Additional Past Surgical History / Comment(s): cyst removed from L posterior shoulder, R elbow fracture with hardware, total R hip arthroplasty, R knee surgery for meniscus, L bicep muscle tear with repair, partial thyroidectomy, colonoscopies/benign polypectomies. Past Anesthesia/Blood Transfusion Reactions: No Reported Reaction Past Psychological History: No Psychological Hx Reported Smoking Status: Former smoker Past Alcohol Use History: None Reported Past Drug Use History: Marijuana - Past Family History Father Family Medical History: Renal Disease Additional Family Medical History / Comment(s): Father had heart problems and from renal failure. Mother Family Medical History: Cancer Additional Family Medical History / Comment(s): Mother of stomach cancer. Medications and Allergies Home Medications Medication Instructions Recorded Confirmed Type Alfuzosin HCl [Alfuzosin HCl ER] 10 mg PO HS 05/30/22 05/30/22 History Cyclobenzaprine [Flexeril] 10 mg PO TID PRN 05/30/22 05/30/22 History Ibuprofen [Motrin] 800 mg PO Q8H PRN 05/30/22 05/30/22 History traMADol HCl [Ultram] 50 mg PO Q4HR PRN 05/30/22 05/30/22 History Allergies Allergy/AdvReac Type Severity Reaction Status Date / Time No Known Allergies Allergy Verified 05/30/22 14:01 Surgical - Exam Vital Signs Temp Pulse Resp BP Pulse Ox 100.2 F H 119 H 18 170/93 95 05/30/22 11:44 05/30/22 11:44 05/30/22 11:44 05/30/22 11:44 05/30/22 11:44 General appearance: The patient is alert, oriented, appears in no acute distress. HET: Head is normocephalic and atraumatic. Pupils are equal and reactive. Neck: Supple without lymphadenopathy. Trachea midline. Heart: S1 S2. Regular rate and rhythm. Lungs: Clear to auscultation bilaterally. Abdomen: Soft, nontender, nondistended. Extremities: Normal skin color and turgor. No cyanosis, rash, ulceration, clubbing, or edema. Bilateral palpable dorsalis pedis pulses. Neurological: No focal deficits. Alert and oriented 3. Results - Labs 06/04/22 05:56 06/03/22 07:15 Abnormal Lab Results - Last 24 Hours (Table) 06/04/22 06/04/22 06/04/22 Range/Units 05:56 05:56 05:56 WBC 11.7 H (3.8-10.6) k/uL Plt Count 481 H (150-450) k/uL Neutrophils # 9.2 H (1.3-7.7) k/uL C-Reactive Protein 13.0 H (<1.0) mg/dL Procalcitonin 0.10 H (0.02-0.09) ng/mL Microbiology - Last 24 Hours (Table) 06/02/22 06:28 Blood Culture - Preliminary Blood No Growth after 48 hours 06/03/22 07:15 Blood Culture Gram Stain - Preliminary Blood 06/03/22 07:15 Blood Culture - Final Blood 06/01/22 06:47 Blood Culture Gram Stain - Preliminary Blood Blood Culture - Preliminary Presumptive Staph aureus - Imaging Comments: MRI report reviewed CT scan - abdomen: report reviewed Assessment and Plan Assessment: Anterior thoracic T10-11 infection Thoracic back pain Positive blood cultures Plan: At this time it seems patient is responding with antibiotics. We certainly will be available to assist in any surgical procedures if indicated. We will continue to follow with orthopedics. Please contact us if there is any surgical intervention planned. Continue with current IV antibiotics. Thank you for this consultation, we will continue to follow. The impression and plan of care has been dictated as directed. I performed a history and examination of this patient, discussed the same with the dictator. I agree with the dictator's note ,documented as a scribe. Any additional findings or plans will be noted.
[2022-06-04] MEDS: IOPAMIDOL CONTRAST (ORAL USE) VIAL PO PRN ×2 (14:24→15:25)
[2022-06-04] MEDS: HYDROmorphone 1 MG/ML 1 ML SYRINGE IVP PRN ×2 (16:42→21:06)
--- NOTE | 2022-06-04 16:51 | CT ---
EXAMINATION TYPE: CT abdomen pelvis w con CT DLP: 2164.8 mGycm, Automated exposure control for dose reduction was used. DATE OF EXAM: 06/04/2022 4:33 PM COMPARISON: CT abdomen pelvis most recent from 05/30/2022. MRI T-spine 06/02/2022. CLINICAL INDICATION:Male, 62 years old with history of r/o Prostrate abscess; TECHNIQUE: Standard CT of the abdomen and pelvis following the administration of 100 cc of Isovue 3 00 IV contrast material. Coronal and sagittal reformats were performed. FINDINGS: LOWER CHEST: More consolidation like changes on today's exam with air bronchograms. Trace bilateral p leural effusions. Atherosclerosis of the coronary arteries. ABDOMEN LIVER: Diffusely hypoattenuating parenchyma. GALLBLADDER AND BILE DUCTS: Unremarkable. PANCREAS: Unremarkable. SPLEEN: Unremarkable. ADRENAL GLANDS: Unremarkable. KIDNEYS AND URETERS: The right ureter has improved in dilation when comparing to prior. There is less perinephric fat stranding seen on today's exam. No evidence of hydronephrosis or renal calculus. Bi lateral renal cysts measuring up to 3.6 cm on the right and 2.5 cm on the left. PELVIS BLADDER: Unremarkable REPRODUCTIVE: Evaluation limited secondary to streak artifact. Prostate is enlarged in size measuring 5.7 cm in transverse dimension. ABDOMEN & PELVIS STOMACH AND BOWEL: Scattered diverticula are noted throughout the colon. No evidence of bowel obstruc tion. PERITONEUM: No evidence of pneumoperitoneum or free fluid. VASCULATURE: No evidence of aortic aneurysm. MUSCULOSKELETAL: There remains destructive changes to T9 and T10 anterior endplate with erosions of t he endplates and surrounding inflammation. Multilevel disc degeneration changes are seen throughout t he spine. There is end-stage osteophytic changes of the left hip with [id number] articulation. Righ t hip arthroplasty changes are present. There is straightening of the visualized spine. LYMPH NODES: No gross evidence for lymphadenopathy. SOFT TISSUE/ABDOMINAL WALL: Unremarkable IMPRESSION: 1. Limited evaluation of the pelvis secondary to streak artifact. No evidence of organizing fluid co llection within the prostate or pelvis. 2. Prostatic cardiomegaly correlate with serum PSA. 3. Worsening consolidation changes with left lung base which remains concerning for pneumonia. Simil ar trace bilateral pleural effusions. 4. Improved right renal sinus inflammation changes. 5. Persistent destructive changes at T9-T10 suspicious for infection. 6. Hepatic steatosis 7. Colonic diverticulosis
--- NOTE | 2022-06-04 17:30 | P.PN ---
Progress Note - Text Progress Note Date: 06/04/22 Chief Complaint: Upper back pain This is a pleasant 62-year-old patient who follows with Dr. Laguerre. Patient has a known history of arthritis. About 6 weeks ago patient was diagnosed with a UTI and told he had a staph infection. Initially given doxycycline and then ciprofloxacin. Patient also had a bout of hematuria. Had been taking ibuprofen. This was discontinued by Dr. Harmon. Patient been having mid thoracic pain for 6 weeks progressively getting worse. Again more and more uncomfortable. Patient now presented with significant pain finding even difficult to move about. Patient has some limited range of motion on the right leg because of hip problem. Computed tomography scan of the ER didn't show evidence of discitis. Started on IV vancomycin and ceftriaxone in the ER. Having fevers. Admitted with T9/T10 discitis. Acute UTI with cystitis. Started on IV vancomycin. 05/31/2022: Patient still having significant spinal pain. Oral intake fair. On IV vancomycin. And ceftriaxone. Blood cultures positive for mSSA. June 01: Some improvement in back pain. Patient has been out of bed. Antibiotic changed to IV Ancef. Blood culture positive for MSSA. Pending MRI. Blood pressure running high. Start lisinopril hydrochlorothiazide 20/12.5 twice daily June 02: Remains on IV Ancef. Back pain better. Has been able to get about the room. Repeat blood cultures have been negative. Blood pressure running on the high side. Cutback IV fluids. Eating well. June 03: Doing much better. No pain. No fever. Family visiting. Cultures remain negative. Discussed with the patient and at the bedside. Questions answered. Discussed yesterday Dr. Valle from orthopedics. If any surgical intervention currently. Active Medications Acetaminophen (Acetaminophen Tab 325 Mg Tab) 650 mg PO Q6HR PRN PRN Reason: Fever and/ or Pain Last Admin: 05/31/22 03:43 Dose: 650 mg Hydrocodone Bitart/Acetaminophen (Hydrocodone/Apap 5-325mg 1 Each Tab) 1 each PO Q4HR PRN PRN Reason: Moderate Pain Last Admin: 06/01/22 20:39 Dose: 1 each Calcium Carbonate/Glycine (Calcium Carbonate 500 Mg Chewable) 1,000 mg PO Q4HR PRN PRN Reason: Dyspepsia Ciprofloxacin (Ciprofloxacin Hcl 500 Mg Tab) 500 mg PO BID [facility]; Protocol Last Admin: 06/03/22 08:41 Dose: 500 mg Cyclobenzaprine HCl (Cyclobenzaprine 10 Mg Tab) 10 mg PO TID PRN PRN Reason: Muscle Spasm Last Admin: 06/03/22 08:41 Dose: 10 mg Enoxaparin Sodium (Enoxaparin 40 Mg/0.4 Ml Syringe) 40 mg SQ DAILY [facility] Last Admin: 06/03/22 08:41 Dose: 40 mg Lisinopril/HCTZ (Lisinopril-Hctz 20-12.5 Mg 1 Each Tab) 1 each PO BID [facility] Last Admin: 06/03/22 08:41 Dose: 1 each Hydromorphone HCl (Hydromorphone 0.5 Mg/0.5 Ml Syringe) 0.5 mg IVP Q3HR PRN PRN Reason: Moderate Pain Last Admin: 05/30/22 16:45 Dose: 0.5 mg Hydromorphone HCl (Hydromorphone 1 Mg/Ml 1 Ml Syringe) 1 mg IVP Q3HR PRN PRN Reason: Severe Pain Last Admin: 06/02/22 19:56 Dose: 1 mg Cefazolin Sodium 2 gm/ Sodium (Chloride) 50 mls @ 100 mls/hr IVPB Q8HR [facility]; Protocol Last Admin: 06/03/22 15:07 Dose: 100 mls/hr Lactulose (Lactulose 20 Gm/30 Ml Cup) 20 gm PO DAILY PRN PRN Reason: Constipation Lorazepam (Lorazepam 0.5 Mg Tab) 0.5 mg PO Q6HR PRN PRN Reason: Anxiety Last Admin: 06/02/22 10:01 Dose: 0.5 mg Metoprolol Tartrate (Metoprolol Tartrate 25 Mg Tab) 25 mg PO BID [facility] Last Admin: 06/03/22 08:41 Dose: 25 mg Naloxone HCl (Naloxone 0.4 Mg/Ml 1 Ml Vial) 0.2 mg IV Q2M PRN PRN Reason: Opioid Reversal Naproxen (Naproxen 250 Mg Tab) 250 mg PO TID [facility] Last Admin: 06/03/22 15:03 Dose: 250 mg Ondansetron HCl (Ondansetron 4 Mg/2 Ml Vial) 4 mg IVP Q8HR PRN PRN Reason: Nausea And Vomiting Tamsulosin HCl (Tamsulosin 0.4 Mg Cap.Er.24h) 0.4 mg PO HS [facility] Last Admin: 06/02/22 21:11 Dose: 0.4 mg Temazepam (Temazepam 15 Mg Cap) 15 mg PO HS PRN PRN Reason: Insomnia Past medical history to include: Osteoarthritis. Social history: Patient smoked for about 20 years stopped in 1991. Alcohol occasionally. . 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 Conjunctiva normal. HEENT: External appearance of nose and ears normal, oral cavity grossly normal. NECK: JVD not raised; masses not palpable. HEART: First and second heart sounds are normal; no edema. LUNGS: Respiratory rate normal; clear to auscultation. ABDOMEN: Soft, nontender, liver spleen not palpable, no masses palpable. PSYCH: Alert and oriented x3; mood and affect normal. MUSCULOSKELETAL much improved tenderness over the midthoracic spine. INVESTIGATIONS, reviewed in the clinical context: Computed tomography scan abdomen and pelvis: No significant prostate finding. Other findings noted. MRI thoracic spine: Destructive soft tissue centered anterior T10-T11. 7 abnormal edema and enhancement of the and just vertebra. No definite disc enhancement on discitis. June 02: WBC 10.1 hemoglobin 10.7 CRP 18.4 May 31: White count 15.8 hemoglobin 12.9 potassium 3.5 creatinine 9.1 CRP 22.2 Blood culture: Staphylococcus aureus White count 14.7 hemoglobin 12.6 platelets 462 sodium 133 progression 3.6 BUN 12 creatinine 0.74 UA positive for leukoesterase, WBC COVID 19/influenza type A and type B: Not detected Computed tomography scan abdomen and pelvis without contrast: Bilateral renal cyst. Scattered diverticula throughout the colon. Destructive changes to T9- T10 with surrounding inflammation. Multilevel disc herniation from the spine. Right hip arthroplasty changes present. Hepatic steatosis. Assessment and plan: -Possible soft tissue infection/phlegmon in the area of the-T11. . No obvious disc enhancement.: Clinically better Continue IV Ancef. Discussed with Dr. Valle from orthopedics. Not for any surgical intervention present time as patient is clinically improving -Sepsis with blood cultures positive for MSSA: Repeat culture remained posi tive.: Not improving Source could be from prostatitis. Discussed with ID. Computed tomography scan of pelvis. -Acute UTI with cystitis recurrent from underlying chronic prostatitis Follow with urology -Chronic prostatitis IV Ancef -DJD of the thoracolumbar cervical spine. NSAIDs -Hepatic steatosis -Colonic diverticulosis, asymptomatic On review today it was discussed length with the patient. Also with ID. Computed tomography scan of the pelvis is ordered. No prostate abscess found. Patient on IV nafcillin per ID. Transferred today about 40 minutes with over 25 minutes of discussion.
[2022-06-04] MEDS: TAMSULOSIN 0.4 MG CAP.ER.24H PO SCH (20:45)
[2022-06-05] MEDS: NAFCILLIN 2 GM in DEXTROSE 5% IN WATER 100 ML IVPB SCH ×12 (04:04→23:44)
--- NOTE | 2022-06-05 08:06 | P.PN ---
Subjective Progress Note Date: 06/03/22 Principal diagnosis: T910 discitis and bacteremia Patient is a 62-year-old male with a chronic pain to the mid back with a recent worsening did have abnormal CT concerning for discitis now with evidence of MSSA bacteremia. MRI of the spine was completed this morning r esults are pending On today's evaluation that is 06/03/2022, The patient remains to be afebrile, the patient denies having any chest pain or shortness of breath or cough patient mid back pain is currently controlled no urinary symptoms and no diarrhea Objective - Vital Signs Vital signs: Vital Signs Temp 98.4 F 06/03/22 14:00 Pulse 87 06/03/22 14:00 Resp 17 06/03/22 14:00 BP 171/108 06/03/22 14:00 Pulse Ox 94 L 06/03/22 14:00 FiO2 Intake & Output 06/02/22 06/03/22 06/03/22 18:59 06:59 18:59 Intake Total 1010 1050 830 Balance 1010 1050 830 Intake: Intake, IV Titration 650 550 350 Amount Sodium Chloride 0.9% 1, 600 450 300 000 ml @ 75 mls/hr IV . [id number] [facility] Rx#:[id number] ceFAZolin 2 gm In Sodium 50 100 50 Chloride 0.9% 50 ml @ 100 mls/hr IVPB Q8HR [facility] Rx# :[id number] Oral 360 500 480 Other: # Voids 3 - Exam GENERAL DESCRIPTION: Middle-aged male lying in bed in no distress RESPIRATORY SYSTEM: Unlabored breathing , decreased breath sounds at bases HEART: S1 S2 regular rate and rhythm , ABDOMEN: Soft , no tenderness EXTREMITIES: No edema feet - Labs CBC & Chem 7: 06/04/22 05:56 06/03/22 07:15 Labs: Abnormal Lab Results - Last 24 Hours (Table) 06/03/22 Range/Units 07:15 Creatinine 0.55 L (0.66-1.25) mg/dL Microbiology - Last 24 Hours (Table) 06/01/22 06:47 Blood Culture Gram Stain - Preliminary Blood Blood Culture - Preliminary Presumptive Staph aureus 06/02/22 06:28 Blood Culture - Preliminary Blood No Growth after 24 hours Assessment and Plan (1) Discitis thoracic region Current Visit: Yes Status: Acute Code(s): M46.44 - DISCITIS, UNSPECIFIED, THORACIC REGION SNOMED Code(s): 040475263 Plan: 1patient presented to hospital with sepsis and respiratory have fever elevated white count tachycardia in this patient significant mid back pain with abnormal CT suspicious for T9-10 discitis patient review of urine history of staph infection posthaste cyst removed from the back however I do not have any clear documentation of the same. 2we are waiting for MRI of the thoracic spine to better define underlying pathology and to make sure there is no evidence of any paraspinal collection that may need to be drained. MRI was completed this morning with results currently pending 3blood cultures 06/01/2020 test positive, blood culture repeated daily to document recurrence of bacteremia before placing a picc 4patient to continue with cefazolin 2 g every 8 hour and Cipro 500 twice a day to cover for the Klebsiella seen in the urine and concern for possible chronic prostatitis Time with Patient: Less than 30
--- NOTE | 2022-06-05 08:09 | P.PN ---
Subjective Progress Note Date: 06/04/22 Principal diagnosis: T910 discitis and bacteremia Patient is a 62-year-old male with a chronic pain to the mid back with a recent worsening did have abnormal CT concerning for discitis now with evidence of MSSA bacteremia. MRI of the spine was completed this morning r esults are pending On today's evaluation that is 06/04/2022, The patient denies having any fever or chills, the patient is breathing comfortably on room air no chest pain shortness with or cough no abdominal pain and back pain is currently well controlled and no urinary symptoms Objective - Vital Signs Vital signs: Vital Signs Temp 98.1 F 06/04/22 06:56 Pulse 81 06/04/22 06:56 Resp 19 06/04/22 06:56 BP 153/97 06/04/22 06:56 Pulse Ox 92 L 06/04/22 06:56 FiO2 Intake & Output 06/03/22 06/04/22 06/04/22 18:59 06:59 18:59 Intake Total 1070 100 180 Balance 1070 100 180 Intake: Intake, IV Titration 350 100 Amount Sodium Chloride 0.9% 1, 300 000 ml @ 75 mls/hr IV . [id number] [facility] Rx#:[id number] ceFAZolin 2 gm In Sodium 50 100 Chloride 0.9% 50 ml @ 100 mls/hr IVPB Q8HR [facility] Rx# :[id number] Oral 720 180 Other: # Voids 3 - Exam GENERAL DESCRIPTION: Middle-aged male lying in bed in no distress RESPIRATORY SYSTEM: Unlabored breathing , decreased breath sounds at bases HEART: S1 S2 regular rate and rhythm , ABDOMEN: Soft , no tenderness EXTREMITIES: No edema feet - Labs CBC & Chem 7: 06/04/22 05:56 06/03/22 07:15 Labs: Abnormal Lab Results - Last 24 Hours (Table) 06/04/22 06/04/22 06/04/22 Range/Units 05:56 05:56 05:56 WBC 11.7 H (3.8-10.6) k/uL Plt Count 481 H (150-450) k/uL Neutrophils # 9.2 H (1.3-7.7) k/uL C-Reactive Protein 13.0 H (<1.0) mg/dL Procalcitonin 0.10 H (0.02-0.09) ng/mL Microbiology - Last 24 Hours (Table) 06/02/22 06:28 Blood Culture - Preliminary Blood No Growth after 48 hours 06/03/22 07:15 Blood Culture Gram Stain - Preliminary Blood 06/03/22 07:15 Blood Culture - Final Blood 06/01/22 06:47 Blood Culture Gram Stain - Preliminary Blood Blood Culture - Preliminary Presumptive Staph aureus Assessment and Plan (1) Discitis thoracic region Current Visit: Yes Status: Acute Code(s): M46.44 - DISCITIS, UNSPECIFIED, THORACIC REGION SNOMED Code(s): 307672170 Plan: 1patient presented to hospital with sepsis and respiratory have fever elevated white count tachycardia in this patient significant mid back pain with abnormal CT suspicious for T9-10 discitis patient review of urine history of staph inf ection posthaste cyst removed from the back however I do not have any clear documentation of the same. 2we are waiting for MRI of the thoracic spine to better define underlying pathology and to make sure there is no evidence of any paraspinal collection that may need to be drained. MRI was completed this morning with results currently pending 3Patient blood culture 06/03/2022 also positive, blood cultures will be repeated today as well as tomorrow to document clearance of bacteremia, patient did have a CT abdominal pelvis with no evidence of any prostatic abscess 4we will discontinue cefazolin start the patient on Naficillin in view of persistent bacteremia and continue with oral Cipro discussed with the admitting physician Time with Patient: Less than 30
[2022-06-05] MEDS: NAPROXEN 250 MG TAB PO SCH ×3 (09:01→22:10)
[2022-06-05] MEDS: CIPROFLOXACIN HCL 500 MG TAB PO SCH ×2 (09:03→19:59)
[2022-06-05] MEDS: METOPROLOL TARTRATE 25 MG TAB PO SCH ×2 (09:03→19:59)
[2022-06-05] MEDS: ENOXAPARIN 40 MG/0.4 ML SYRINGE SQ SCH (09:04)
[2022-06-05] MEDS: LISINOPRIL-HCTZ 20-12.5 MG 1 EACH TAB PO SCH ×2 (09:08→20:00)
--- NOTE | 2022-06-05 16:09 | P.PN ---
Progress Note - Text Progress Note Date: 06/05/22 Chief Complaint: Upper back pain This is a pleasant 62-year-old patient who follows with Dr. Laguerre. Patient has a known history of arthritis. About 6 weeks ago patient was diagnosed with a UTI and told he had a staph infection. Initially given doxycycline and then ciprofloxacin. Patient also had a bout of hematuria. Had been taking ibuprofen. This was discontinued by Dr. Harmon. Patient been having mid thoracic pain for 6 weeks progressively getting worse. Again more and more uncomfortable. Patient now presented with significant pain finding even difficult to move about. Patient has some limited range of motion on the right leg because of hip problem. Computed tomography scan of the ER didn't show evidence of discitis. Started on IV vancomycin and ceftriaxone in the ER. Having fevers. Admitted with T9/T10 discitis. Acute UTI with cystitis. Started on IV vancomycin. 05/31/2022: Patient still having significant spinal pain. Oral intake fair. On IV vancomycin. And ceftriaxone. Blood cultures positive for mSSA. June 01: Some improvement in back pain. Patient has been out of bed. Antibiotic changed to IV Ancef. Blood culture positive for MSSA. Pending MRI. Blood pressure running high. Start lisinopril hydrochlorothiazide 20/12.5 twice daily June 02: Remains on IV Ancef. Back pain better. Has been able to get about the room. Repeat blood cultures have been negative. Blood pressure running on the high side. Cutback IV fluids. Eating well. June 03: Doing much better. No pain. No fever. Family visiting. Cultures remain negative. Discussed with the patient and at the bedside. Questions answered. Discussed yesterday Dr. Valle from orthopedics. If any surgical intervention currently. June 05: Sitting at edge of bed. No pain. Blood cultures remained positive. On IV nafcillin and ciprofloxacin. Results of computed tomography scan discussed with ID doctor site. To continue current antibiotics. At this point no surgical intervention. Active Medications Acetaminophen (Acetaminophen Tab 325 Mg Tab) 650 mg PO Q6HR PRN PRN Reason: Fever and/ or Mild Pain Last Admin: 05/31/22 03:43 Dose: 650 mg Hydrocodone Bitart/Acetaminophen (Hydrocodone/Apap 5-325mg 1 Each Tab) 1 each PO Q4HR PRN PRN Reason: Moderate Pain Last Admin: 06/01/22 20:39 Dose: 1 each Calcium Carbonate/Glycine (Calcium Carbonate 500 Mg Chewable) 1,000 mg PO Q4HR PRN PRN Reason: Dyspepsia Ciprofloxacin (Ciprofloxacin Hcl 500 Mg Tab) 500 mg PO BID [facility] BEDS AT [facility]; Protocol Last Admin: 06/05/22 09:03 Dose: 500 mg Cyclobenzaprine HCl (Cyclobenzaprine 10 Mg Tab) 10 mg PO TID PRN PRN Reason: Muscle Spasm Last Admin: 06/03/22 08:41 Dose: 10 mg Enoxaparin Sodium (Enoxaparin 40 Mg/0.4 Ml Syringe) 40 mg SQ DAILY COUNTS INCLUDE 234 BEDS AT THE [facility] Last Admin: 06/05/22 09:04 Dose: 40 mg Lisinopril/HCTZ (Lisinopril-Hctz 20-12.5 Mg 1 Each Tab) 1 each PO BID [facility]S [facility]CLUDE 234 BEDS AT THE [facility] Last Admin: 06/05/22 09:08 Dose: 1 each Hydromorphone HCl (Hydromorphone 0.5 Mg/0.5 Ml Syringe) 0.5 mg IVP Q3HR PRN PRN Reason: Moderate Pain Last Admin: 05/30/22 16:45 Dose: 0.5 mg Hydromorphone HCl (Hydromorphone 1 Mg/Ml 1 Ml Syringe) 1 mg IVP Q3HR PRN PRN Reason: Severe Pain Last Admin: 06/04/22 21:06 Dose: 1 mg Nafcillin Sodium 2 gm/ (Dextrose/Water) 100 mls @ 50 mls/hr IVPB Q4HR COUNTS INCLUDE 234 BEDS AT THE [facility]; Protocol Last Admin: 06/05/22 13:11 Dose: 50 mls/hr Lactulose (Lactulose 20 Gm/30 Ml Cup) 20 gm PO DAILY PRN PRN Reason: Constipation Lorazepam (Lorazepam 0.5 Mg Tab) 0.5 mg PO Q6HR PRN PRN Reason: Anxiety Last Admin: 06/02/22 10:01 Dose: 0.5 mg Metoprolol Tartrate (Metoprolol Tartrate 25 Mg Tab) 25 mg PO BID [facility]S [facility]CLUDE 234 BEDS AT THE [facility] Last Admin: 06/05/22 09:03 Dose: 25 mg Naloxone HCl (Naloxone 0.4 Mg/Ml 1 Ml Vial) 0.2 mg IV Q2M PRN PRN Reason: Opioid Reversal Naproxen (Naproxen 250 Mg Tab) 250 mg PO TID [facility]S [facility]CLUDE 234 BEDS AT THE [facility] Last Admin: 06/05/22 16:01 Dose: 250 mg Ondansetron HCl (Ondansetron 4 Mg/2 Ml Vial) 4 mg IVP Q8HR PRN PRN Reason: Nausea And Vomiting Tamsulosin HCl (Tamsulosin 0.4 Mg Cap.Er.24h) 0.4 mg PO HS [facility] Last Admin: 06/04/22 20:45 Dose: 0.4 mg Temazepam (Temazepam 15 Mg Cap) 15 mg PO HS PRN PRN Reason: Insomnia Past medical history to include: Osteoarthritis. Social history: Patient smoked for about 20 years stopped in 1991. Alcohol occasionally. . 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 Conjunctiva normal. HEENT: External appearance of nose and ears normal, oral cavity grossly normal. NECK: JVD not raised; masses not palpable. HEART: First and second heart sounds are normal; no edema. LUNGS: Respiratory rate normal; clear to auscultation. ABDOMEN: Soft, nontender, liver spleen not palpable, no masses palpable. PSYCH: Alert and oriented x3; mood and affect normal. MUSCULOSKELETAL much improved tenderness over the midthoracic spine. INVESTIGATIONS, reviewed in the clinical context: Computed tomography scan abdomen and pelvis: No significant prostate finding. Other findings noted. MRI thoracic spine: Destructive soft tissue centered anterior T10-T11. 7 abnormal edema and enhancement of the and just vertebra. No definite disc enhancement on discitis. June 02: WBC 10.1 hemoglobin 10.7 CRP 18.4 May 31: White count 15.8 hemoglobin 12.9 potassium 3.5 creatinine 9.1 CRP 22.2 Blood culture: Staphylococcus aureus White count 14.7 hemoglobin 12.6 platelets 462 sodium 133 progression 3.6 BUN 12 creatinine 0.74 UA positive for leukoesterase, WBC COVID 19/influenza type A and type B: Not detected Computed tomography scan abdomen and pelvis without contrast: Bilateral renal cyst. Scattered diverticula throughout the colon. Destructive changes to T9- T10 with surrounding inflammation. Multilevel disc herniation from the spine. Right hip arthroplasty changes present. Hepatic steatosis. Assessment and plan: -Possible soft tissue infection/phlegmon in the area of the-T11. . No obvious disc enhancement.: Clinically better Continue IV Ancef. Discussed with Dr. Valle from orthopedics. Not for any surgical intervention present time as patient is clinically improving -Sepsis with blood cultures positive for MSSA: Repeat culture remained positive.: Not improving Source could be from prostatitis. Discussed with ID. Computed tomography scan of pelvis. -Acute UTI with cystitis recurrent from underlying chronic prostatitis. Cultures positive for staph aureus and Klebsiella oxytoca Ciprofloxacin, IV nafcillin. Follow with urology -Chronic prostatitis IV Ancef -DJD of the thoracolumbar cervical spine. NSAIDs -Hepatic steatosis -Colonic diverticulosis, asymptomatic Discussed with ID. To continue with antibiotics. Discussed with patient.
[2022-06-05] MEDS: TAMSULOSIN 0.4 MG CAP.ER.24H PO SCH (20:00)
[2022-06-05] MEDS: HYDROmorphone 1 MG/ML 1 ML SYRINGE IVP PRN (22:50)
[2022-06-06] MEDS: NAFCILLIN 2 GM in DEXTROSE 5% IN WATER 100 ML IVPB SCH ×10 (04:00→21:19)
[2022-06-06] MEDS: HYDROmorphone 0.5 MG/0.5 ML SYRINGE IVP PRN ×2 (04:22→19:49)
[2022-06-06] MEDS: HYDROmorphone 1 MG/ML 1 ML SYRINGE IVP PRN (08:13)
[2022-06-06] MEDS: NAPROXEN 250 MG TAB PO SCH ×3 (09:27→21:17)
[2022-06-06] MEDS: METOPROLOL TARTRATE 25 MG TAB PO SCH ×2 (09:27→21:19)
[2022-06-06] MEDS: ENOXAPARIN 40 MG/0.4 ML SYRINGE SQ SCH (09:27)
[2022-06-06] MEDS: LISINOPRIL-HCTZ 20-12.5 MG 1 EACH TAB PO SCH ×2 (09:27→21:19)
[2022-06-06] MEDS: CIPROFLOXACIN HCL 500 MG TAB PO SCH ×2 (09:27→21:19)
--- NOTE | 2022-06-06 16:01 | P.PN ---
Subjective Progress Note Date: 06/05/22 Principal diagnosis: T910 discitis and bacteremia Patient is a 62-year-old male with a chronic pain to the mid back with a recent worsening did have abnormal CT concerning for discitis now with evidence of MSSA bacteremia. MRI of the spine was completed this morning r esults are pending On today's evaluation that is 06/05/2022, The patient remains to be afebrile, the patient is breathing comfortably on room air , the patient denies chest pain shortness or breath and no cough no abdominal pain and back pain is currently well controlled and no urinary symptoms Objective - Vital Signs Vital signs: Vital Signs Temp 98.2 F 06/05/22 07:07 Pulse 94 06/05/22 12:54 Resp 18 06/05/22 12:54 BP 162/108 06/05/22 12:54 Pulse Ox 93 L 06/05/22 07:07 FiO2 Intake & Output 06/04/22 06/05/22 06/05/22 18:59 06:59 18:59 Intake Total 690 420 Output Total 1000 Balance 690 -580 Intake: Intake, IV Titration 150 Amount Nafcillin 2 gm In 100 Dextrose 5% in Water 100 ml @ 50 mls/hr IVPB Q4HR [facility] Rx#:[id number] ceFAZolin 2 gm In Sodium 50 Chloride 0.9% 50 ml @ 100 mls/hr IVPB Q8HR [facility] Rx# :[id number] Oral 540 420 Output: Urine 1000 Other: # Voids 2 - Exam GENERAL DESCRIPTION: Middle-aged male lying in bed in no distress RESPIRATORY SYSTEM: Unlabored breathing , decreased breath sounds at bases HEART: S1 S2 regular rate and rhythm , ABDOMEN: Soft , no tenderness EXTREMITIES: No edema feet - Labs CBC & Chem 7: 06/04/22 05:56 06/03/22 07:15 Labs: Microbiology - Last 24 Hours (Table) 06/04/22 11:15 Blood Culture - Preliminary Blood No Growth after 24 hours 06/01/22 06:47 Blood Culture Gram Stain - Final Blood Blood Culture - Preliminary Staphylococcus aureus 06/02/22 06:28 Blood Culture - Preliminary Blood No Growth after 72 hours 06/03/22 07:15 Blood Culture Gram Stain - Preliminary Blood Blood Culture - Preliminary Staphylococcus aureus Assessment and Plan (1) Discitis thoracic region Current Visit: Yes Status: Acute Code(s): M46.44 - DISCITIS, UNSPECIFIED, THORACIC REGION SNOMED Code(s): 903380843 Plan: 1patient presented to hospital with sepsis and respiratory have fever elevated white count tachycardia in this patient significant mid back pain with abnormal CT suspicious for T9-10 discitis patient review of urine history of staph infection posthaste cyst removed from the back however I do not have any clear documentation of the same. 2we are waiting for MRI of the thoracic spine to better define underlying pathology and to make sure there is no evidence of any paraspinal collection that may need to be drained. MRI was completed this morning with results currently pending 3Patient blood culture 06/03/2022 positive, patient blood culture 06/04/2022 are negative, patient did have a CT abdominal pelvis with no evidence of any prostatic abscess 4patient to continue with Naficillin and oral Cipro Time with Patient: Less than 30
--- NOTE | 2022-06-06 16:03 | P.PN ---
Subjective Progress Note Date: 06/06/22 Principal diagnosis: T910 discitis and bacteremia Patient is a 62-year-old male with a chronic pain to the mid back with a recent worsening did have abnormal CT concerning for discitis now with evidence of MSSA bacteremia. MRI of the spine was completed this morning r esults are pending On today's evaluation that is 06/06/2022, The patient continues to be afebrile, the patient is breathing comfortably on room air , the patient denies chest pain shortness or breath and no cough , the patient denies abdominal pain and no urinary symptoms, back pain has decreased in intensity Objective - Vital Signs Vital signs: Vital Signs Temp 97.8 F 06/06/22 06:47 Pulse 84 06/06/22 06:47 Resp 17 06/06/22 06:47 BP 130/84 06/06/22 06:47 Pulse Ox 95 06/06/22 06:47 FiO2 Intake & Output 06/05/22 06/06/22 06/06/22 18:59 06:59 18:59 Intake Total 600 240 Output Total 1000 Balance -400 240 Intake: Oral 600 240 Output: Urine 1000 Other: Voiding Method Urinal # Voids 5 # Bowel Movements 2 - Exam GENERAL DESCRIPTION: Middle-aged male lying in bed in no distress RESPIRATORY SYSTEM: Unlabored breathing , decreased breath sounds at bases HEART: S1 S2 regular rate and rhythm , ABDOMEN: Soft , no tenderness EXTREMITIES: No edema feet - Labs CBC & Chem 7: 06/04/22 05:56 06/03/22 07:15 Labs: Microbiology - Last 24 Hours (Table) 06/05/22 06:24 Blood Culture - Preliminary Blood No Growth after 24 hours 06/02/22 06:28 Blood Culture - Preliminary Blood No Growth after 96 hours 06/04/22 11:15 Blood Culture - Preliminary Blood No Growth after 24 hours 06/01/22 06:47 Blood Culture Gram Stain - Final Blood Blood Culture - Preliminary Staphylococcus aureus Assessment and Plan (1) Discitis thoracic region Current Visit: Yes Status: Acute Code(s): M46.44 - DISCITIS, UNSPECIFIED, THORACIC REGION SNOMED Code(s): 324183151 Plan: 1patient presented to hospital with sepsis and respiratory have fever elevated white count tachycardia in this patient significant mid back pain with abnormal CT suspicious for T9-10 discitis patient review of urine history of staph infection posthaste cyst removed from the back however I do not have any clear documentation of the same. 2we are waiting for MRI of the thoracic spine to better define underlying pathology and to make sure there is no evidence of any paraspinal collection that may need to be drained. MRI was completed this morning with results currently pending 3Patient blood culture 06/03/2022 positive, patient blood culture 06/04/2022 as well as 06/05/2022 are negative, if blood culture from 06/04/2020 remains to be negative by tomorrow morning patient able to get a PICC line for outpatient IV cefazolin 4-patient did have a CT abdominal pelvis with no evidence of any prostatic abscess 5patient to continue with Naficillin and oral Cipro Time with Patient: Less than 30
[2022-06-06] MEDS: TAMSULOSIN 0.4 MG CAP.ER.24H PO SCH (21:19)
--- NOTE | 2022-06-06 22:58 | P.PN ---
Progress Note - Text Progress Note Date: 06/06/22 Chief Complaint: Upper back pain This is a pleasant 62-year-old patient who follows with Dr. Laguerre. Patient has a known history of arthritis. About 6 weeks ago patient was diagnosed with a UTI and told he had a staph infection. Initially given doxycycline and then ciprofloxacin. Patient also had a bout of hematuria. Had been taking ibuprofen. This was discontinued by Dr. Harmon. Patient been having mid thoracic pain for 6 weeks progressively getting worse. Again more and more uncomfortable. Patient now presented with significant pain finding even difficult to move about. Patient has some limited range of motion on the right leg because of hip problem. Computed tomography scan of the ER didn't show evidence of discitis. Started on IV vancomycin and ceftriaxone in the ER. Having fevers. Admitted with T9/T10 discitis. Acute UTI with cystitis. Started on IV vancomycin. 05/31/2022: Patient still having significant spinal pain. Oral intake fair. On IV vancomycin. And ceftriaxone. Blood cultures positive for mSSA. June 01: Some improvement in back pain. Patient has been out of bed. Antibiotic changed to IV Ancef. Blood culture positive for MSSA. Pending MRI. Blood pressure running high. Start lisinopril hydrochlorothiazide 20/12.5 twice daily June 02: Remains on IV Ancef. Back pain better. Has been able to get about the room. Repeat blood cultures have been negative. Blood pressure running on the high side. Cutback IV fluids. Eating well. June 03: Doing much better. No pain. No fever. Family visiting. Cultures remain negative. Discussed with the patient and at the bedside. Questions answered. Discussed yesterday Dr. Valle from orthopedics. If any surgical intervention currently. June 05: Sitting at edge of bed. No pain. Blood cultures remained positive. On IV nafcillin and ciprofloxacin. Results of computed tomography scan discussed with ID doctor site. To continue current antibiotics. At this point no surgical intervention. June 06: IV nafcillin and ciprofloxacin. Some back discomfort. Discussed with the patient was blood cultures became negative. He'll get the PICC line. Oral intake code. Active Medications Acetaminophen (Acetaminophen Tab 325 Mg Tab) 650 mg PO Q6HR PRN PRN Reason: Fever and/ or Mild Pain Last Admin: 05/31/22 03:43 Dose: 650 mg Hydrocodone Bitart/Acetaminophen (Hydrocodone/Apap 5-325mg 1 Each Tab) 1 each PO Q4HR PRN PRN Reason: Moderate Pain Last Admin: 06/01/22 20:39 Dose: 1 each Calcium Carbonate/Glycine (Calcium Carbonate 500 Mg Chewable) 1,000 mg PO Q4HR PRN PRN Reason: Dyspepsia Ciprofloxacin (Ciprofloxacin Hcl 500 Mg Tab) 500 mg PO BID [facility]; Protocol Last Admin: 06/06/22 21:19 Dose: 500 mg Cyclobenzaprine HCl (Cyclobenzaprine 10 Mg Tab) 10 mg PO TID PRN PRN Reason: Muscle Spasm Last Admin: 06/03/22 08:41 Dose: 10 mg Enoxaparin Sodium (Enoxaparin 40 Mg/0.4 Ml Syringe) 40 mg SQ DAILY [facility] Last Admin: 06/06/22 09:27 Dose: 40 mg Lisinopril/HCTZ (Lisinopril-Hctz 20-12.5 Mg 1 Each Tab) 1 each PO BID [facility] Last Admin: 06/06/22 21:19 Dose: 1 each Hydromorphone HCl (Hydromorphone 0.5 Mg/0.5 Ml Syringe) 0.5 mg IVP Q3HR PRN PRN Reason: Moderate Pain Last Admin: 06/06/22 19:49 Dose: 0.5 mg Hydromorphone HCl (Hydromorphone 1 Mg/Ml 1 Ml Syringe) 1 mg IVP Q3HR PRN PRN Reason: Severe Pain Last Admin: 06/06/22 08:13 Dose: 1 mg Nafcillin Sodium 2 gm/ (Dextrose/Water) 100 mls @ 50 mls/hr IVPB Q4HR [facility]; Protocol Last Admin: 06/06/22 21:19 Dose: 50 mls/hr Lactulose (Lactulose 20 Gm/30 Ml Cup) 20 gm PO DAILY PRN PRN Reason: Constipation Lorazepam (Lorazepam 0.5 Mg Tab) 0.5 mg PO Q6HR PRN PRN Reason: Anxiety Last Admin: 06/02/22 10:01 Dose: 0.5 mg Metoprolol Tartrate (Metoprolol Tartrate 25 Mg Tab) 25 mg PO BID [facility] Last Admin: 06/06/22 21:19 Dose: 25 mg Naloxone HCl (Naloxone 0.4 Mg/Ml 1 Ml Vial) 0.2 mg IV Q2M PRN PRN Reason: Opioid Reversal Naproxen (Naproxen 250 Mg Tab) 250 mg PO TID [facility] Last Admin: 06/06/22 21:17 Dose: 250 mg Ondansetron HCl (Ondansetron 4 Mg/2 Ml Vial) 4 mg IVP Q8HR PRN PRN Reason: Nausea And Vomiting Tamsulosin HCl (Tamsulosin 0.4 Mg Cap.Er.24h) 0.4 mg PO HS [facility] Last Admin: 06/06/22 21:19 Dose: 0.4 mg Temazepam (Temazepam 15 Mg Cap) 15 mg PO HS PRN PRN Reason: Insomnia Past medical history to include: Osteoarthritis. Social history: Patient smoked for about 20 years stopped in 1991. Alcohol occasionally. [employer]. Owns a local restaurant [facility] Family history: Heart disease and renal problems Physical examination: VITAL SIGNS: 97.3, 91, 16, 129/86, 94% room air GENERAL: Sitting of the edge of the bed, eating lunch EYES: Pupils equal. Conjunctiva normal. HEENT: External appearance of nose and ears normal, oral cavity grossly normal. NECK: JVD not raised; masses not palpable. HEART: First and second heart sounds are normal; no edema. LUNGS: Respiratory rate normal; clear to auscultation. ABDOMEN: Soft, nontender, liver spleen not palpable, no masses palpable. PSYCH: Alert and oriented x3; mood and affect normal. MUSCULOSKELETAL much improved tenderness over the midthoracic spine. INVESTIGATIONS, reviewed in the clinical context: Computed tomography scan abdomen and pelvis: No significant prostate finding. Other findings noted. MRI thoracic spine: Destructive soft tissue centered anterior T10-T11. 7 abnormal edema and enhancement of the and just vertebra. No definite disc enhancement on discitis. June 02: WBC 10.1 hemoglobin 10.7 CRP 18.4 May 31: White count 15.8 hemoglobin 12.9 potassium 3.5 creatinine 9.1 CRP 22.2 Blood culture [May 30-June 03]: Staphylococcus aureus White count 14.7 hemoglobin 12.6 platelets 462 sodium 133 progression 3.6 BUN 12 creatinine 0.74 UA positive for leukoesterase, WBC COVID 19/influenza type A and type B: Not detected Computed tomography scan abdomen and pelvis without contrast: Bilateral renal cyst. Scattered diverticula throughout the colon. Destructive changes to T9- T10 with surrounding inflammation. Multilevel disc herniation from the spine. Right hip arthroplasty changes present. Hepatic steatosis. Assessment and plan: -Possible soft tissue infection/phlegmon in the area of the-T11. . No obvious disc enhancement.: Clinically better Continue IV Ancef. Discussed with Dr. Valle from orthopedics. Not for any surgical intervention present time as patient is clinically improving -Sepsis with blood cultures positive for MSSA: Repeat culture remained positive. Until June 03: Computed tomography scan of the abdomen pelvis unremarkable. -Acute UTI with cystitis recurrent from underlying chronic prostatitis. Cultures positive for staph aureus and Klebsiella oxytoca Ciprofloxacin, IV nafcillin. Follow with urology -Chronic prostatitis IV Ancef -DJD of the thoracolumbar cervical spine. NSAIDs -Hepatic steatosis -Colonic diverticulosis, asymptomatic Discussed with patient. Once the blood cultures became negative then PICC line can be placed. Continue IV nafcillin and ciprofloxacin.
[2022-06-07] MEDS: NAFCILLIN 2 GM in DEXTROSE 5% IN WATER 100 ML IVPB SCH ×10 (01:20→15:00)
[2022-06-07] MEDS: HYDROmorphone 1 MG/ML 1 ML SYRINGE IVP PRN (01:23)
[2022-06-07 07:57] LABS: Basophils # (A) 0.1 k/uL (0-0.2); Basophils % (A) 1 %; Eosinophils # (A) 0.1 k/uL (0-0.7); Eosinophils % (A) 1 %; HGB 13.9 gm/dL (13.0-17.5); Hypochromasia Slight; Lymphocytes # (A) 1.1 k/uL (1.0-4.8); Lymphocytes % (A) 12 %; MCH 28.5 pg (25.0-35.0); MCV 91.9 fL (80.0-100.0); Mean Platelet Volume 6.6; Monocytes # (A) 0.5 k/uL (0-1.0); Monocytes % (A) 6 %; Neutrophils # (A) 7.4 k/uL (1.3-7.7); Neutrophils % (A) 79 %; Platelet Count 513 k/uL (150-450); RBC 4.89 m/uL (4.30-5.90); RDW 14.3 % (11.5-15.5); WBC 9.3 k/uL (3.8-10.6)
[2022-06-07 08:03] LABS: African American GFR (CKD) 78 (>60 ml/min/1.73 sqM); Anion Gap 6 mmol/L; Blood Urea Nitrogen 23 mg/dL (9-20); C Reactive Protein 4.9 mg/dL (<1.0); Calcium 9.1 mg/dL (8.4-10.2); Carbon Dioxide 33 mmol/L (22-30); Chloride 99 mmol/L (98-107); Glucose 113 mg/dL (74-99); Non-African American GFR(CKD) 67 (>60 ml/min/1.73 sqM); Potassium 4.3 mmol/L (3.5-5.1); Sodium 138 mmol/L (137-145)
[2022-06-07] MEDS: ENOXAPARIN 40 MG/0.4 ML SYRINGE SQ SCH (08:37)
[2022-06-07] MEDS: METOPROLOL TARTRATE 25 MG TAB PO SCH (08:38)
[2022-06-07] MEDS: NAPROXEN 250 MG TAB PO SCH ×2 (08:38→14:59)
[2022-06-07] MEDS: CIPROFLOXACIN HCL 500 MG TAB PO SCH (08:38)
[2022-06-07 09:25] VITALS: PULSE 83; RESP 16
[2022-06-07] MEDS: LISINOPRIL-HCTZ 20-12.5 MG 1 EACH TAB PO SCH (09:44)
--- NOTE | 2022-06-07 10:48 | P.PN ---
Progress Note - Text Progress Note Date: 06/07/22 The patient is seen and examined. He is comfortable. Exam of her around his room. He has no neurologic deficits. He's tolerating his regular diet. He is 5 out 5 strength throughout upper and lower extremities. Microbiology shows no growth at 48 hours Anterior thoracic paraspinal infection would likely discitis without neurologic compromise No evidence of neural change or deficit the patient is having improvement with antibiotic treatment and he will obtain a PICC line as soon as his blood cultures are completely negative. He will plan for discharge after his PICC line inserted. He can follow-up with us on an outpatient basis in 3-6 weeks.
[2022-06-07 11:25] LABS: Prothrombin Time 11.1 sec (9.0-12.0)
--- NOTE | 2022-06-07 11:45 | P.PN ---
Subjective Progress Note Date: 06/07/22 Principal diagnosis: T910 discitis and bacteremia Patient is a 62-year-old male with a chronic pain to the mid back with a recent worsening did have abnormal CT concerning for discitis now with evidence of MSSA bacteremia. MRI of the spine was completed this morning r esults are pending On today's evaluation that is 06/07/2022, The patient denies any fever or any chills, the patient is breathing comfortably on room air , the patient denies chest pain shortness or breath and no cough , the patient denies abdominal pain and no urinary symptoms, the patient back pain has decreased in intensity and no new symptoms Objective - Vital Signs Vital signs: Vital Signs Temp 98.5 F 06/07/22 08:00 Pulse 83 06/07/22 08:00 Resp 16 06/07/22 08:00 BP 128/83 06/07/22 08:00 Pulse Ox 95 06/07/22 08:00 FiO2 Intake & Output 06/06/22 06/07/22 06/07/22 18:59 06:59 18:59 Intake Total 240 680 Balance 240 680 Intake: Oral 240 680 Other: # Voids 3 # Bowel Movements 1 - Exam GENERAL DESCRIPTION: Middle-aged male lying in bed in no distress RESPIRATORY SYSTEM: Unlabored breathing , decreased breath sounds at bases HEART: S1 S2 regular rate and rhythm , ABDOMEN: Soft , no tenderness EXTREMITIES: No edema feet - Labs CBC & Chem 7: 06/07/22 07:20 06/07/22 07:20 Labs: Abnormal Lab Results - Last 24 Hours (Table) 06/07/22 06/07/22 Range/Units 07:20 07:20 Plt Count 513 H (150-450) k/uL Carbon Dioxide 33 H (22-30) mmol/L BUN 23 H (9-20) mg/dL Glucose 113 H (74-99) mg/dL C-Reactive Protein 4.9 H (<1.0) mg/dL Microbiology - Last 24 Hours (Table) 06/01/22 06:47 Blood Culture Gram Stain - Final Blood Blood Culture - Final Staphylococcus aureus 06/05/22 06:24 Blood Culture - Preliminary Blood No Growth after 48 hours 06/02/22 06:28 Blood Culture - Preliminary Blood No Growth after 120 hours 06/03/22 07:15 Blood Culture Gram Stain - Final Blood Blood Culture - Final Staphylococcus aureus 06/04/22 11:15 Blood Culture - Preliminary Blood No Growth after 48 hours Assessment and Plan (1) Discitis thoracic region Current Visit: Yes Status: Acute Code(s): M46.44 - DISCITIS, UNSPECIFIED, THORACIC REGION SNOMED Code(s): 154185288 Plan: 1patient presented to hospital with sepsis and respiratory have fever elevated white count tachycardia in this patient significant mid back pain with abnormal CT suspicious for T9-10 discitis patient review of urine history of staph infection posthaste cyst removed from the back however I do not have any clear documentation of the same. 2we are waiting for MRI of the thoracic spine to better define underlying path ology and to make sure there is no evidence of any paraspinal collection that may need to be drained. MRI was completed this morning with results currently pending 3Patient blood culture 06/03/2022 positive, patient blood culture 06/04/2022 as well as 06/05/2022 are negative, the patient blood culture from 06/04/2020 remains to be negative as of 06/07/2022 that is more than 72 hours PICC line has been ordered for patient IV cefazolin 4-patient did have a CT abdominal pelvis with no evidence of any prostatic abscess 5patient to continue with Naficillin and oral Cipro , plan is to switch him o johnson to cefazolin 2 g every 8 hours 6 weeks on discharge Time with Patient: Less than 30
[2022-06-07] MEDS ORDERED: LIDOCAINE 1% PF 10 MG/ML (5 ML AMP) SQ ONE (13:21)
--- NOTE | 2022-06-07 15:42 | IR ---
PICC LINE PLACEMENT: HISTORY: Infection requiring long-term antibiotic therapy PROCEDURE: Ultrasound and fluoroscopic guidance of PICC line placement. COMPLICATIONS: None ANESTHESIA: 1. 1% Lidocaine locally. FINDINGS/TECHNIQUE: The procedure was explained to the patient. The risks, complications, benefits and alternatives were discussed and any questions were answered. Informed consent was obtained. The patient was placed supine on the fluoroscopic table and prepped and draped in the usual sterile fash ion. Utilizing a 21 gauge needle and sonographic and fluoroscopic guidance, access in the left basi lic vein was achieved and there is placement of a 0.018 guidewire. The vein is patent. A 4-F sheath was placed over the guidewire. The guidewire and dilator were removed and a 4-F. PICC line was plac ed through the sheath with the tip at the level of the SVC. The sheath was removed, the catheter was flushed and sutured into position. The patient was stable throughout the procedure and remained sta ble upon discharge from the Department of Radiology. The vein puncture was patent under ultrasound. A patel scale image was obtained to document patency of the vein punctured. All elements of the maximal barrier technique were utilized. FLUOROSCOPY TIME: 0.1 minutes and one image submitted. IMPRESSION: Successful PICC line placement under ultrasound and fluoroscopic guidance.
[2022-06-07 16:13] VITALS: BP 156/89; TEMP 99
--- NOTE | 2022-06-07 16:55 | P.DS ---
Providers Date of admission: 05/30/22 15:33 Expected date of discharge: 06/07/22 Attending physician: Hiren Bustillo Consults: 05/30/22 15:01 Consult Physician Urgent Consulting Provider: Shari Garland Consult Reason/Comments: Discitis Do you want consulting provider notified?: Yes Consult Physician Urgent Consulting Provider: Zulma Mas Consult Reason/Comments: Discitis, osteomyelitis Do you want consulting provider notified?: Yes 06/01/22 17:24 Consult Physician Routine Consulting Provider: Carlos Baldwin Consult Reason/Comments: Recurrent UTI Do you want consulting provider notified?: Yes 06/04/22 08:07 Consult Physician Routine Consulting Provider: Anjana Harrison Consult Reason/Comments: anterior paraspinal infection t10-11 Do you want consulting provider notified?: Yes Primary care physician: [facility] Course: Chief Complaint: Upper back pain This is a pleasant 62-year-old patient who follows with Dr. Laguerre. Patient has a known history of arthritis. About 6 weeks ago patient was diagnosed with a UTI and told he had a staph infection. Initially given doxycycline and then ciprofloxacin. Patient also had a bout of hematuria. Had been taking ibuprofen. This was discontinued by Dr. Harmon. Patient been having mid thoracic pain for 6 weeks progressively getting worse. Again more and more uncomfortable. Patient now presented with significant pain finding even difficult to move about. Patient has some limited range of motion on the right leg because of hip problem. Computed tomography scan of the ER didn't show evidence of discitis. Started on IV vancomycin and ceftriaxone in the ER. Having fevers. Admitted with T9/T10 discitis. Acute UTI with cystitis. Started on IV vancomycin. 05/31/2022: Patient still having significant spinal pain. Oral intake fair. On IV vancomycin. And ceftriaxone. Blood cultures positive for mSSA. June 01: Some improvement in back pain. Patient has been out of bed. Antibiotic changed to IV Ancef. Blood culture positive for MSSA. Pending MRI. Blood pressure running high. Start lisinopril hydrochlorothiazide 20/12.5 twice daily June 02: Remains on IV Ancef. Back pain better. Has been able to get about the room. Repeat blood cultures have been negative. Blood pressure running on the high side. Cutback IV fluids. Eating well. June 03: Doing much better. No pain. No fever. Family visiting. Cultures remain negative. Discussed with the patient and at the bedside. Questions answered. Discussed yesterday Dr. Valle from orthopedics. If any surgical intervention currently. June 05: Sitting at edge of bed. No pain. Blood cultures remained positive. On IV nafcillin and ciprofloxacin. Results of computed tomography scan di scussed with ID doctor site. To continue current antibiotics. At this point no surgical intervention. June 06: IV nafcillin and ciprofloxacin. Some back discomfort. Discussed with the patient was blood cultures became negative. He'll get the PICC line. Oral intake code. June 07: Patient getting a PICC line today. Will be discharged on IV Ancef and ciprofloxacin. Discussed with patient and ID. Questions answered. Patient to follow with ID and orthopedics. Discussion and discharge planning more than 35 minutes Past medical history to include: Osteoarthritis. Social history: Patient smoked for about 20 years stopped in 1991. Alcohol occasionally. . Owns a local restaurant [facility] Family history: Heart disease and renal problems Physical examination: VITAL SIGNS: 99, 83, 16, 156/89, 93% room air GENERAL: Sitting of the edge of the bed, comfortable EYES: Pupils equal. Conjunctiva normal. HEENT: External appearance of nose and ears normal, oral cavity grossly normal. NECK: JVD not raised; masses not palpable. HEART: First and second heart sounds are normal; no edema. LUNGS: Respiratory rate normal; clear to auscultation. ABDOMEN: Soft, nontender, liver spleen not palpable, no masses palpable. PSYCH: Alert and oriented x3; mood and affect normal. MUSCULOSKELETAL much improved tenderness over the midthoracic spine. INVESTIGATIONS, reviewed in the clinical context: June 07: White count 9.3 hemoglobin 13.9 potassium 4.3 creatinine 1.16 CRP 4.9 Computed tomography scan abdomen and pelvis: No significant prostate finding. Other findings noted. MRI thoracic spine: Destructive soft tissue centered anterior T10-T11. 7 abnormal edema and enhancement of the and just vertebra. No definite disc enhancement on discitis. June 02: WBC 10.1 hemoglobin 10.7 CRP 18.4 May 31: White count 15.8 hemoglobin 12.9 potassium 3.5 creatinine 9.1 CRP 22.2 Blood culture [May 30-June 03]: Staphylococcus aureus White count 14.7 hemoglobin 12.6 platelets 462 sodium 133 progression 3.6 BUN 12 creatinine 0.74 UA positive for leukoesterase, WBC COVID 19/influenza type A and type B: Not detected Computed tomography scan abdomen and pelvis without contrast: Bilateral renal cyst. Scattered diverticula throughout the colon. Destructive changes to T9- T10 with surrounding inflammation. Multilevel disc herniation from the spine. Right hip arthroplasty changes present. Hepatic steatosis. Assessment and plan: -Acute discitis D 10-T11. Continue IV Ancef. Discussed with Dr. Valle from orthopedics. Not for any surgical intervention -Sepsis with blood cultures positive for MSSA: Repeat culture remained positive. Until June 03: Blood culture and June 04 negative Computed tomography scan of the abdomen pelvis unremarkable. -Acute UTI with cystitis recurrent from underlying chronic prostatitis. MSSA and Klebsiella oxytoca Ciprofloxacin, IV nafcillin. Follow with urology -Chronic prostatitis IV Ancef -DJD of the thoracolumbar cervical spine. NSAIDs -Hepatic steatosis -Colonic diverticulosis, asymptomatic Disposition: Home Patient Condition at Discharge: Fair Plan - Discharge Summary Discharge Rx Participant: No New Discharge Prescriptions: New ceFAZolin [Kefzol] 2 gm IVP Q8HR #126 each Acetaminophen Tab [Tylenol] 650 mg PO Q6HR PRN tab PRN Reason: Fever and/ or Mild Pain Ciprofloxacin HCl [Cipro] 500 mg PO Q12HR #42 tab Naproxen [Naprosyn] 250 mg PO TID #30 tab Metoprolol Tartrate [Lopressor] 25 mg PO BID #60 tab Lisinopril-Hctz 20-12.5 mg [Zestoretic 20-12.5] 1 each PO BID #60 tab Continue Cyclobenzaprine [Flexeril] 10 mg PO TID PRN PRN Reason: Muscle Spasm traMADol HCl [Ultram] 50 mg PO Q4HR PRN PRN Reason: Moderate Pain Alfuzosin HCl [Alfuzosin HCl ER] 10 mg PO HS Discontinued Ibuprofen [Motrin] 800 mg PO Q8H PRN PRN Reason: Pain Discharge Medication List Alfuzosin HCl [Alfuzosin HCl ER] 10 mg PO HS 05/30/22 [History] Cyclobenzaprine [Flexeril] 10 mg PO TID PRN 05/30/22 [History] traMADol HCl [Ultram] 50 mg PO Q4HR PRN 05/30/22 [History] Acetaminophen Tab [Tylenol] 650 mg PO Q6HR PRN tab 06/07/22 [Rx] Ciprofloxacin HCl [Cipro] 500 mg PO Q12HR #42 tab 06/07/22 [Rx] Lisinopril-Hctz 20-12.5 mg [Zestoretic 20-12.5] 1 each PO BID #60 tab 06/07/22 [Rx] Metoprolol Tartrate [Lopressor] 25 mg PO BID #60 tab 06/07/22 [Rx] Naproxen [Naprosyn] 250 mg PO TID #30 tab 06/07/22 [Rx] ceFAZolin [Kefzol] 2 gm IVP Q8HR #126 each 06/07/22 [Rx] Follow up Appointment(s)/Referral(s): Chris Laguerre DO [Primary Care Provider] - 1-2 days (office will call with a ppointment time ) Charles Rawls PAC [PHYSICIAN VAT SKIMMER] - 06/25/22 2:00 pm (Patient may follow-up with Charles Rawls PA-C or Dr. Raciel Garland at [facility] in 2 weeks following discharge. ) [facility]Infusion [NON-STAFF] - As Needed Care,Radha Senior [NON-STAFF] - As Needed Carlos Baldwin MD [STAFF PHYSICIAN] - 07/02/22 11:00 am Silvia Edgar [NON-STAFF] - As Needed (TLSO back brace) Ambulatory/Diagnostic Orders: Basic Metabolic Panel [LAB.AMB] Location: None Selected C Reactive Protein [LAB.AMB] Location: None Selected Complete Blood Count w/diff [LAB.AMB] Location: None Selected Erythrocyte Sedimentation Rate [LAB.AMB] Location: None Selected Patient Instructions/Handouts: Acute Low Back Pain (GEN), How to Care for Your PICC (Peripherally Inserted Central Catheter) (DC) Activity/Diet/Wound Care/Special Instructions: [facility] [phone] (24 hour line) Please call them when antibiotics arrive to your home to coordinate a time for the nurses to start services in AM.
--- NOTE | 2022-06-11 19:10 | CDI ---
Documentation Clarification Form Date: 06/11/2022 06:53:09 PM From: Shona Gutiérrez RN, CCDS Admit Date: 05/30/2022 03:33:00 PM Patient Name: Nicholas Verma Visit Number: [id number] Discharge Date: 06/07/2022 05:41:00 PM ATTENTION: The Clinical Documentation Specialists (CDI) and [facility] Coding Staff appreciate your assistance in clarifying documentation. Please respond to the clarification below the line at the bottom and electronically sign. The CDI & [facility] Coding staff will review the response and follow-up if needed. Please note: Queries are made part of the Legal Health Record. If you have any questions, please contact the author of this message via ITS. Dr. Hiren Bustillo Pneumonia is documented in the ED assessment on 05/30/22 but is not noted in your H/P and subsequent progress notes. Clarification is requested. 05/30 ED clinical impression: Discitis thoracic region, Pneumonia 05/30 ID: Chest x-ray suspicious for pneumonia however the patient is currently on room air and do not have any respiratory symptoms. History/Risk Factors: Staph infection from cyst removal in shoulder 02/2022, Upper respiratory infection Clinical Indicators: 62-year-old male present with complaint of back pain: 05/30 vital signs: 170/93 119 19 100.2 05/30 Labs: WBC 14.7, UA Moderate Leukocyte Esterase 05/30 CXR: Correlate for pneumonia versus basilar atelectasis 05/30 CT abdomen/pelvis: partially visualized bilateral, left greater than right lower lobe airspace opacities concerning for pneumonia. New trace bilateral pleural effusion discitis, osteomyelitis Treatment: Vancomycin 1,750 MG IVPB Once (PTD) 05/30-05/31 Rocephin 2 GM IVPB Q 8 HRS 05/30-06/04, Cipro 500 MG PO BID 06/02-06/07 Please clarify if the Pneumonia is: [ ] Pneumonia confirmed, remains under treatment [ ] Pneumonia confirmed, resolved [ ] Pneumonia ruled out [ ] Other condition, please specify [ ] Unable to determine (Template Last Revised: January 2021) Pneumonia ruled out MTDD
== END 2022-06-07 17:41 | disposition home health service (06) | DRG 871 ==
LOC: EC 11:43 → 4SSUR 15:33
PROVIDERS: ADMIT Hospitalist; ATTEND Hospitalist
PROC: B5181ZA Fluoroscopy of Superior Vena Cava using Low Osmolar Contrast, Guidance (ICD-10-PCS; principal; 2022-06-07 08:30)
PROC: 02HV33Z Insertion of Infusion Device into Superior Vena Cava, Percutaneous Approach (ICD-10-PCS; principal; 2022-06-07 08:30)
PROC: B548ZZA Ultrasonography of Superior Vena Cava, Guidance (ICD-10-PCS; principal; 2022-06-07 08:30)
DX: A41.01 Sepsis due to Methicillin susceptible Staphylococcus aureus (principal); G06.1 Intraspinal abscess and granuloma; M46.24 Osteomyelitis of vertebra, thoracic region; M46.44 Discitis, unspecified, thoracic region; N30.91 Cystitis, unspecified with hematuria; Z86.19 Personal history of other infectious and parasitic diseases; N41.1 Chronic prostatitis; Z20.822 Contact with and (suspected) exposure to COVID-19; F41.9 Anxiety disorder, unspecified; G47.00 Insomnia, unspecified; G89.29 Other chronic pain; K57.30 Diverticulosis of large intestine without perforation or abscess without bleeding; K59.00 Constipation, unspecified; K76.0 Fatty (change of) liver, not elsewhere classified; M47.815 Spondylosis without myelopathy or radiculopathy, thoracolumbar region; N28.1 Cyst of kidney, acquired; A41.59 Other Gram-negative sepsis; N40.0 Benign prostatic hyperplasia without lower urinary tract symptoms; W19.XXXA Unspecified fall, initial encounter; Y92.009 Unspecified place in unspecified non-institutional (private) residence as the place of occurrence of the external cause; Z79.2 Long term (current) use of antibiotics; Z79.899 Other long term (current) drug therapy; Z80.0 Family history of malignant neoplasm of digestive organs; Z87.440 Personal history of urinary (tract) infections; Z87.891 Personal history of nicotine dependence; Z96.641 Presence of right artificial hip joint; Z96.651 Presence of right artificial knee joint
CPT/HCPCS: 36415; 36573; 71046; 72157; 74176; 74177; 80048; 80053; 80202; 81001; 82565; 83605; 84145; 85025; 85610; 85652; 86140; 87040; 87077; 87086; 87186; 87502; 87635; 96361; 96365; 96368; 99285

== ENCOUNTER 2022-06-08 10:12 | Emergency (ER) | payer BC ==
[2022-06-08] MEDS ORDERED: HYDROmorphone 0.5 MG/0.5 ML SYRINGE IVP STA (10:47)
[2022-06-08] MEDS ORDERED: SODIUM CHLORIDE 0.9% 1,000 ML IV STA (10:48)
[2022-06-08 11:31] LABS: Basophils # (A) 0.1 k/uL (0-0.2); Basophils % (A) 1 %; Eosinophils # (A) 0.1 k/uL (0-0.7); Eosinophils % (A) 1 %; HGB 14.8 gm/dL (13.0-17.5); Lymphocytes # (A) 0.8 k/uL (1.0-4.8); Lymphocytes % (A) 9 %; MCH 30.1 pg (25.0-35.0); MCV 91.2 fL (80.0-100.0); Mean Platelet Volume 6.3; Monocytes # (A) 0.6 k/uL (0-1.0); Monocytes % (A) 6 %; Neutrophils # (A) 7.8 k/uL (1.3-7.7); Neutrophils % (A) 83 %; Platelet Count 532 k/uL (150-450); RBC 4.93 m/uL (4.30-5.90); RDW 14.5 % (11.5-15.5); WBC 9.4 k/uL (3.8-10.6)
[2022-06-08 11:35] LABS: Partial Thromboplastin Time 26.6 sec (22.0-30.0); Prothrombin Time 11.2 sec (9.0-12.0)
[2022-06-08 11:42] LABS: Albumin 3.8 g/dL (3.5-5.0); Calcium 9.1 mg/dL (8.4-10.2); Potassium 4.4 mmol/L (3.5-5.1); Total Bilirubin 0.7 mg/dL (0.2-1.3); Total Protein 7.8 g/dL (6.3-8.2)
--- NOTE | 2022-06-08 11:57 | ED ---
General Adult HPI - General Chief complaint: Recheck/Abnormal Lab/Rx Stated complaint: PIC Line bleeding Time Seen by Provider: 06/08/22 10:20 Source: patient Mode of arrival: ambulatory Limitations: no limitations - History of Present Illness Initial comments: Patient is a 62-year-old male who presents to the emergency department for evaluation of bleeding from PICC line. Patient states he was discharged yesterday after the PICC line was inserted. He states his home nurse came today to change the dressing and give him his IV antibiotics when she noticed the dressing was very saturated in blood. Patient has no other concerns. He does not have pain in the arm where the PICC line is inserted. Denies blood thinner use however states he was on heparin while in the hospital. He denies fever, chills, shortness of breath, lightheadedness, dizziness, chest pain, and other concern - Related Data Home Medications Medication Instructions Recorded Confirmed Alfuzosin HCl [Alfuzosin HCl ER] 10 mg PO HS 05/30/22 06/08/22 Cyclobenzaprine [Flexeril] 10 mg PO TID PRN 05/30/22 06/08/22 traMADol HCl [Ultram] 50 mg PO Q4HR PRN 05/30/22 06/08/22 Lisinopril-Hctz 20-12.5 mg 1 tab PO BID 06/08/22 06/08/22 [Zestoretic 20-12.5] Previous Rx's Medication Instructions Recorded Acetaminophen Tab [Tylenol] 650 mg PO Q6HR PRN tab 06/07/22 Ciprofloxacin HCl [Cipro] 500 mg PO Q12HR #42 tab 06/07/22 Metoprolol Tartrate [Lopressor] 25 mg PO BID #60 tab 06/07/22 Naproxen [Naprosyn] 250 mg PO TID #30 tab 06/07/22 ceFAZolin [Kefzol] 2 gm IVP Q8HR #126 each 06/07/22 HYDROcodone/APAP 10-325MG [Def[place] 1 tab PO Q4HR PRN 3 Days #18 tab 06/08/22 10-325] Allergies Allergy/AdvReac Type Severity Reaction Status Date / Time No Known Allergies Allergy Verified 06/08/22 13:26 Review of Systems ROS Statement: Those systems with pertinent positive or pertinent negative responses have been documented in the HPI. ROS Other: All systems not noted in ROS Statement are negative. Past Medical History Past Medical History: Osteoarthritis (OA) Additional Past Medical History / Comment(s): Staph infection from cyst removal in shoulder 02/2022 History of Any Multi-Drug Resistant Organisms: None Reported Past Surgical History: Orthopedic Surgery Additional Past Surgical History / Comment(s): cyst removed from L posterior shoulder, R elbow fracture with hardware, total R hip arthroplasty, R knee surgery for meniscus, L bicep muscle tear with repair, partial thyroidectomy, colonoscopies/benign polypectomies. Past Anesthesia/Blood Transfusion Reactions: No Reported Reaction Past Psychological History: No Psychological Hx Reported Smoking Status: Former smoker Past Alcohol Use History: Occasional Past Drug Use History: Marijuana - Past Family History Father Family Medical History: Renal Disease Additional Family Medical History / Comment(s): Father had heart problems and from renal failure. Mother Family Medical History: Cancer Additional Family Medical History / Comment(s): Mother of stomach cancer. General Exam Limitations: no limitations Course Vital Signs 06/08/22 06/08/22 10:15 13:00 Temperature 98.2 F 98.1 F Pulse Rate 125 H 88 Respiratory 20 18 Rate Blood Pressure 120/81 153/99 O2 Sat by Pulse 96 98 Oximetry Medical Decision Making - Medical Decision Making This is a 62-year-old male who presents for evaluation of bleeding from PICC line. Thorough history and examination were performed. Patient is well- appearing. He is hemodynamically stable. His PICC line dressing which was changed this morning is now saturated in blood. No blood thinner use. Documentation reviewed. Patient had PICC line put in yesterday for discitis/osteomyelitis. Direct pressure was applied however PICC line continue to bleed. Laboratory studies obtained. Patient has normal hemoglobin at 14.8 and normal coag studies. I was able to speak with interventional radiology over the phone pe [email or web address] who evaluated patient in the emergency department. Interventional radiology was able to stop the bleeding with direct pressure. New dressing was applied. Patient states he was discharged with tramadol yesterday which is not helping his pain. Due to severe pain I will send patient home with a short course of [place]. Patient will return if he experiences continuous bleeding or experiences new, concerning, or worsening symptoms. He will follow-up with orthopedics and infectious disease outpatient planned. He verbalizes understanding and is agreeable to this plan. Dr. Ricketts is my attending. - Lab Data Result diagrams: 06/08/22 11:12 06/08/22 11:12 Lab Results 06/08/22 06/08/22 06/08/22 Range/Units 11:09 11:12 11:12 WBC 9.4 (3.8-10.6) k/uL RBC 4.93 (4.30-5.90) m/uL Hgb 14.8 (13.0-17.5) gm/dL Hct 45.0 (39.0-53.0) % MCV 91.2 (80.0-100.0) fL MCH 30.1 (25.0-35.0) pg MCHC 33.0 (31.0-37.0) g/dL RDW 14.5 (11.5-15.5) % Plt Count 532 H (150-450) k/uL MPV 6.3 Neutrophils % 83 % Lymphocytes % 9 % Monocytes % 6 % Eosinophils % 1 % Basophils % 1 % Neutrophils # 7.8 H (1.3-7.7) k/uL Lymphocytes # 0.8 L (1.0-4.8) k/uL Monocytes # 0.6 (0-1.0) k/uL Eosinophils # 0.1 (0-0.7) k/uL Basophils # 0.1 (0-0.2) k/uL PT 11.2 (9.0-12.0) sec INR 1.0 (<1.2) APTT 26.6 (22.0-30.0) sec Sodium (137-145) mmol/L Potassium (3.5-5.1) mmol/L Chloride (98-107) mmol/L Carbon Dioxide (22-30) mmol/L Anion Gap mmol/L BUN (9-20) mg/dL Creatinine (0.66-1.25) mg/dL Est GFR (CKD-EPI)AfAm (>60 ml/min/1.73 sqM) Est GFR (CKD-EPI)NonAf (>60 ml/min/1.73 sqM) Glucose (74-99) mg/dL Calcium (8.4-10.2) mg/dL Total Bilirubin (0.2-1.3) mg/dL AST (17-59) U/L ALT (4-49) U/L Alkaline Phosphatase (38-126) U/L Total Protein (6.3-8.2) g/dL Albumin (3.5-5.0) g/dL Blood Type Blood Type Confirm O Positive Blood Type Recheck Bld Type Recheck Status Antibody Screen Spec Expiration Date 06/08/22 06/08/22 Range/Units 11:12 11:12 WBC (3.8-10.6) k/uL RBC (4.30-5.90) m/uL Hgb (13.0-17.5) gm/dL Hct (39.0-53.0) % MCV (80.0-100.0) fL MCH (25.0-35.0) pg MCHC (31.0-37.0) g/dL RDW (11.5-15.5) % Plt Count (150-450) k/uL MPV Neutrophils % % Lymphocytes % % Monocytes % % Eosinophils % % Basophils % % Neutrophils # (1.3-7.7) k/uL Lymphocytes # (1.0-4.8) k/uL Monocytes # (0-1.0) k/uL Eosinophils # (0-0.7) k/uL Basophils # (0-0.2) k/uL PT (9.0-12.0) sec INR (<1.2) APTT (22.0-30.0) sec Sodium 138 (137-145) mmol/L Potassium 4.4 (3.5-5.1) mmol/L Chloride 101 (98-107) mmol/L Carbon Dioxide 27 (22-30) mmol/L Anion Gap 10 mmol/L BUN 20 (9-20) mg/dL Creatinine 1.04 (0.66-1.25) mg/dL Est GFR (CKD-EPI)AfAm 88 (>60 ml/min/1.73 sqM) Est GFR (CKD-EPI)NonAf 76 (>60 ml/min/1.73 sqM) Glucose 126 H (74-99) mg/dL Calcium 9.1 (8.4-10.2) mg/dL Total Bilirubin 0.7 (0.2-1.3) mg/dL AST 25 (17-59) U/L ALT 26 (4-49) U/L Alkaline Phosphatase 156 H (38-126) U/L Total Protein 7.8 (6.3-8.2) g/dL Albumin 3.8 (3.5-5.0) g/dL Blood Type O Positive Blood Type Confirm Blood Type Recheck No Previous Record Bld Type Recheck Status CABO Indicated Antibody Screen NEGATIVE Spec Expiration Date 06/11/2022 - 2311 Disposition Clinical Impression: Bleeding from peripherally inserted central catheter (PICC), Back pain Disposition: HOME SELF-CARE Condition: Good Instructions (If sedation given, give patient instructions): How to Care for Your PICC (Peripherally Inserted Central Catheter) (ED) Additional Instructions: Please take medication as directed. Follow-up with orthopedics and infectious disease as planned. Return to the emergency department if you experience new, concerning, or worsening symptoms. Prescriptions: HYDROcodone/APAP 10-325MG [Def[place] 10-325] 1 tab PO Q4HR PRN 3 Days #18 tab PRN Reason: Pain Is patient prescribed a controlled substance at d/c from ED?: Yes If prescribed controlled substance>3 days was MAPS reviewed?: Prescribed <3 Days Referrals: Chris Laguerre DO [Primary Care Provider] - 1-2 days Time of Disposition: 13:35
[2022-06-08 13:39] VITALS: BP 153/99; PULSE 88; RESP 18; TEMP 98.1
== END 2022-06-08 13:44 | disposition home or self-care (01) ==
LOC: EC 10:12
DX: T82.838A Hemorrhage due to vascular prosthetic devices, implants and grafts, initial encounter (principal); M54.50 Low back pain, unspecified; Z87.891 Personal history of nicotine dependence
CPT/HCPCS: 36415; 86900; 86901; 80053; 85025; 85610; 85730; 86850; 99283; 96374; 96361; J1170

== ENCOUNTER → 2022-07-25 | Outpatient (CLI) | payer BC ==
[2022-07-25 15:10] LABS: Basophils # (A) 0.11 X 10*3/uL (0.00-0.10); Basophils % (A) 1.9 %; Eosinophils # (A) 0.13 X 10*3/uL (0.04-0.35); Eosinophils % (A) 2.3 %; HCT 39.1 % (39.6-50.0); HGB 12.5 g/dL (13.0-17.0); Immature Grans, Automated 0.7 %; Lymphocytes # (A) 0.84 X 10*3/uL (0.90-5.00); Lymphocytes % (A) 14.7 %; MCH 28.5 pg (27.0-32.0); MCV 89.1 fL (80.0-97.0); Monocytes # (A) 0.51 X 10*3/uL (0.20-1.00); Monocytes % (A) 8.9 %; NRBC Per 100 WBC 0 /100 WBCS (0.0-0.0); Neutrophils # (A) 4.08 X 10*3/uL (1.80-7.70); Neutrophils % (A) 71.5 %; Platelet Count 344 X 10*3/uL (140-440); RBC 4.39 X 10*6/uL (4.40-5.60); RDW 15.1 % (11.5-14.5); WBC 5.71 X 10*3/uL (4.50-10.00)
[2022-07-25 15:13] LABS: INR 0.98 (0.90-1.11); Prothrombin Time 10.8 sec (9.9-11.9)
[2022-07-25 18:22] LABS: BUN/Creat Ratio 16.11 Ratio (12.00-20.00); Blood Urea Nitrogen 14.5 mg/dL (9.0-27.0); Calcium 9.7 mg/dL (8.7-10.3); Non-African American GFR(CKD) 90.6 (60.0-200.0); Potassium 5.2 mmol/L (3.5-5.5)
== END | disposition home or self-care (01) ==
LOC: LABPAT 10:28
PROVIDERS: ATTEND Orthopaedic Surgery
DX: Z01.812 Encounter for preprocedural laboratory examination (principal); M46.40 Discitis, unspecified, site unspecified; L02.212 Cutaneous abscess of back [any part, except buttock and flank]; Z22.322 Carrier or suspected carrier of Methicillin resistant Staphylococcus aureus
CPT/HCPCS: 80048; 85025; 85610; 86850; 86900; 86901; 93005

== ENCOUNTER → 2022-07-26 | Outpatient (CLI) | payer BC | END | disposition home or self-care (01) | LOC: LABPAT 14:18 | PROVIDERS: ATTEND Orthopaedic Surgery | DX: Z01.818 Encounter for other preprocedural examination (principal); M46.40 Discitis, unspecified, site unspecified; L02.212 Cutaneous abscess of back [any part, except buttock and flank] | CPT/HCPCS: 87070; 93005 ==

== ENCOUNTER → 2022-07-31 | Outpatient (CLI) | payer BC ==
--- NOTE | 2022-07-31 09:28 | CT ---
EXAMINATION TYPE: CT thoracic spine wo con, CT lumbar spine wo con DATE OF EXAM: 07/31/2022 COMPARISON: MRI thoracic spine 07/16/2022, CT 06/04/2022 HISTORY: Infective discitis CT DLP: 1331.82 (accession [id number]), 944.45 (accession [id number]) mGycm Automated exposure control for dose reduction was used. Helical acquisition obtained through the thoracic and lumbar spine without contrast FINDINGS: The abnormal disc space at T9-10 is again noted with endplate erosions and bone destruction, there is likely some reactive sclerosis present, abnormal paraspinal soft tissue thickening consistent with leighton almonte's history of discitis. Bone destruction extends into the spinal canal posteriorly. Abnormal pa raspinal soft tissue extends to the level of the left lateral margin of the descending aorta, fat maribel ne is not well seen at this level, inflammation likely extensively margin of the aorta. Posterior disc herniation at T7-8 is not as well seen as on MRI. Multilevel spondylosis is present, findings suggest DISH. Thoracic vertebral bodies show otherwise pr eserved height and alignment. Lumbar spine shows multilevel spondylosis. Loss of disc height is present at L5-S1 with associated va cuum phenomenon. Posterior extension endplate disc complex is noted at this level and to lesser exten t L4-5. There is multilevel facet arthropathy change. Lumbar vertebral bodies are intact. Sacroiliac joints show ankylosis. Cystic focus at the lower pole the right kidney noted, smaller cystic focus noted incidentally within the left kidney, not adequately characterized. Some minimal patchy densities present at the posterior left lung base, improved compared to prior CT may represent residual inflammatory change or scarring, atelectasis. Coronary artery calcification is present and noted incidentally. Proximal descending aorta is ectatic at 3.2 cm. Left-sided PICC line is in place, distal tip within the superior vena cava. IMPRESSION: FINDINGS CONSISTENT WITH PATIENT'S HISTORY OF KNOWN DISCITIS AT T9-10 DESCRIBED. DEGENERATIVE DISC DISEASE AND ADDITIONAL FINDINGS ABOVE.
== END | disposition home or self-care (01) ==
LOC: RADCTMAIN 07:02
PROVIDERS: ATTEND Orthopaedic Surgery
DX: M51.36 Other intervertebral disc degeneration, lumbar region (principal); M47.816 Spondylosis without myelopathy or radiculopathy, lumbar region
CPT/HCPCS: 72128; 72131

== ENCOUNTER 2022-08-02 06:05 | Inpatient (IN) | payer BC ==
[2022-08-01 08:55] VITALS: BMI 36.7
[~2022-08-02 06:05] MED LIST: ACETAMINOPHEN TAB 500 MG TAB PO PRN; DEXAMETHASONE SOD PHOSPHATE 4 MG/ML 1 ML VIAL IV ONE; GABAPENTIN 300 MG CAP PO PRN; HYDROmorphone 0.5 MG/0.5 ML SYRINGE IVP PRN; LIDOCAINE 1% (10MG/ML) FOR IV START INTRADERMA PRN; MIDAZOLAM 2 MG/2 ML VIAL IV PRN; ONDANSETRON 4 MG/2 ML VIAL IVP PRN; TRANEXAMIC ACID IN NACL,ISO-OS 1,000 MG in SALINE 1 100ML.BAG IVPB PRN
--- NOTE | 2022-08-02 06:33 | P.HPOR ---
History of Present Illness H&P Date: 07/25/22 Chief Complaint: severe back pain, osteomyelitis discitis [facility] History and Physical Date of :[birth year] Age: 62 year Height: 5'10" Weight: 260 lbs BMI: 37.31 kg/m2 Occupation: [employer] VAS: 6 CHIEF COMPLAINT: Thoracic pain DOI:None DOS: None for the back, had surgery on shoulder 2 months ago which turned into STAF infection at T9 and T10 Duration of current treatment regiment: 2 months HISTORY : Xrays brought MRI from outside facility which were reviewed New xrays taken in office Trauma or injury No Work-Related No Pain description sharp.Debilitating, cannot complete ADLs Location posterior Patient notes that their pain radiates to bilateral lower extremities Activity Modification yes Hand Dominance right TREATMENTS COMPLETED: 6 weeks of PT completed? Month and Year of last PT date? No Physician recommended home exercise completed? Duration of HEP course: No Medications yes List: Naproxen 500mg, Tramadol 50mg, Flexeril 10mg all without relief of his symptoms. On Abx throught PICC line Alternative interventions Chiropractic: No Massage therapy: No R.I.C.E: No Brace: No Injections No RFA: No SUBJECTIVE: Mr. Verma presents to the office for an evaluation of their thoracic spine. To review, the patient had shoulder surgery 2 months ago through [facility] and began to feel sharp thoracic pain. Following the surgery the patient had post-operative labs which revealed an infection with osteodiscitis at T9 and T10. Following this he was referred here by Dr. Garland for further treatment and evaluation. He has been treated with TLSO, which he cannot tolerate wearing and Antibiotics through his PICC line. Original MRI done in May shows OD with some minor erosions but new MRI shows significant changes. With this the Patient reports continued thoracic pain ongoing since the recent onset of his infection. In addition to their thoracic pain, they do report that it radiates somewhat transiently into the bilateral lower extremities, associated withintermittent numbness and tingling through the legs diffusely. Overall the patient has seen minimal improvements to his symptoms since their onset. Mr. Verma symptoms are exacerbated with prolonged standing, ambulation, and sitting, due to this they notes that it is increasingly difficult for Mr. Pozios to complete many of their daily tasks. Patient is having severe sleep disturbances as well due to their ongoing pain and associated symptoms. Rega rding treatments, the patient has previously trialed does currently have a PICC line and is receiving weekly IV antibiotics without any relief of his symptoms. Patient denies trialing any other modalities at this time. For their symptoms, the patient has been taking Naproxen, Tramadol, and Flexeril all without relief of his symptoms. Otherwise the patient denies any f/c/sob/cp, no incision concerns, no bladder or bowel retention/incontinence, no perineal numbness/tingling, and ambulates independently. The patients' past social, medical, family, surgical history, as well as review of systems, have been reviewed. Please refer to the Neurosurgery History and Physical form that has been scanned in to our electronic medical record system. 16 points review of systems completed and as stated in HPI, all other systems reviewed are negative. Social History: Reviewed, see appropriate section of the chart for details. P3 Social History: Smoking: none P3 Alcohol: currently drinks alcohol P3 Family History: Reviewed, see appropriate section of the chart for details. P2 Past Medical History: Reviewed, see appropriate section of the chart for details. P1 Current Medications: Rx: alfuzosin ER 10 mg tablet,extended release 24 hr Ref: 0 Rx: ceFAZolin 2 gram solution for injection Ref: 0 Rx: cyclobenzaprine 10 mg tablet Ref: 0 Rx: lisinopriL 20 mg tablet Ref: 0 Rx: Marijuana , Ref: 0 Rx: metoprolol tartrate 25 mg tablet Ref: 0 Rx: naproxen 500 mg tablet Ref: 0 Rx: traMADol 50 mg tablet Ref: 0 PHYSICAL EXAMINATION: General: Awake, alert, appropriate for age, in no acute distress. HEENT: No unusual neck masses around region of lateral neck triangle, thyroid, supraclavicular groove Extremities: Skin warm and dry without acute lesions, coloration, temperature, skin intact, no tenderness or erythema Integument: Hairy patches: ABSENT Dorsal skin dimples: ABSENT Cafe au lait spots: ABSENT Surgical incisions: NONE regarding the back, well healed shoulder incision. Palpation: Please see Pain drawing on Intake sheet for further detail. Midline spinal tenderness: Yes E6 Cervical Tenderness: No E6 Paralumbar tenderness: No E6 Parathoracic tenderness: Yes E6 Buttocks tenderness: No E6 Sacroiliac Tenderness: No Pain with Ballottement at T8-T10 POSTURAL and MUSCULO-SKELETAL EVALUATION: Coronal Balance: NEUTRAL Recumbent testing: Patient is able to lay flat on back Sagittal Balance: NEUTRAL Shoulder Profile: LEVEL Pelvic Girdle: LEVEL Neck ROM: UNRESTRICTED Lumbar ROM: RESTRICTED Shoulder ROM: Symmetrical Hip ROM: Symmetrical Knee ROM: Symmetrical Hands: Normal appearance, symmetrical Feet: Normal appearance, Symmetrical VASCULAR STATUS : LEFT RIGHT Wrist Pulses INTACT INTACT Pedal Pulses (Dors. pedis & post.tibialis) INTACT INTACT Color NORMAL NORMAL Edema Absent Absent NEUROLOGIC EXAMINATION: Mental Status:Awake and alert, fully oriented, with normal attention, concentration and memory, and fluent, appropriate speech. Cranial Nerves: I: Olfactory not tested. II: Visual acuity normal, no visual field deficit noted with confrontation. III,IV: Normal pupillary reflexes & intact extraocular movements without nystagmus. V,: Intact symmetrical facial sensation. VII: Intact symmetrical facial motor movement VIII: Hearing intact. IX,X: Intact gag, swallow, & normal voice. XI: Sternocleidomastoid, trapezius function intact. XII: Tongue midline with normal movements. L'hermitte's Sign: Negative / absent Spurling'Sign: Absent bilaterally. Cubital percussion test: Absent bilaterally. Bearden-Tinel sign - Carpal region: Absent bilaterally. Straight Leg Raising: Absent bilaterally. Crossed straight leg raise: negative O8 MOTOR EXAM (0-5/5, N/T) UPPER EXTREMITY Shoulder Abduction Biceps Triceps Wrist Extension Hand Intrinsics Etcher Enameling Right 5/5 5/5 5/5 5/5 5/5 5/5 Left 5/5 5/5 5/5 5/5 5/5 5/5 LOWER EXTREMITY Hip Flexion Knee Extension Knee Flexion DF PF EHL FHL Right 4/5 4/5 5/5 4/5 4/5 4/5 4/5 Left 4/5 4/5 5/5 4/5 4/5 4/5 4/5 REFLEXES(0-4/2, NT)Upper ExtremityLower Extremity Right 2 2 Left 2 2 Pathological Reflexes RIGHT LEFT Bearden's Absent Absent Clonus Absent Absent Babinski Absent Absent # Indicates mechanical impairment Muscle appearance: Symmetrical, without signs of atrophy or dystrophy. Sensory system (0-4, N/T) Test type RU FREDDY RL LL Joint-Position 2 2 2 2 Vibration 2 2 2 2 Pain & LT sense 2 2 2 2 Dermatomal Deficit: None None L1 None Gait and Functional Evaluation: Ambulatory aids: Independent Romberg's test: Intact bilaterally Toe heel walk / heel-toe walk intact while maintaining satisfactory balance? No Squatting/straightening w/o assistance to a min of 60 degree knee flexion? No Single leg stance: not intact bilaterally Trendelenburg sign negative bilaterally Hand and finger dexterity intact bilaterally? yes Disdiadochokinesis examination negative bilaterally? yes RADIOGRAPHIC STUDIES: XRay taken on 07/25/22 of Thoracic Spine: This demonstrates erosion at T9-10 with changes regarding his osteodiscicits. There is increased kyohpisis and likely fracture of T10 secondary to bony erosion. There is overall kyphotic alignment of the spine. Positive sagittal balance related. No othe rfractures or leisons noted. MRI scan from 07/16/2022 of Thoracic Spine: This was compared to an MRI taken in May 2022. This shows significant progression of the osteodiscitis with bony erosion of the endplates of T9 caudally and cranial endplate of T10. T10 likely fractured due to the erosion and bony compromise. There is increased uptake within the disc space still due to the abscess formation. There is evidence of this causing PLL elevation and this is causing significant central stenosis and cord compression at the T9-10 level. There is about 5.8 mm SAC in this area. There is a small HNP noted above this at T7-8 that causes minor thecal sac compression. There is kyphosis related to the erosion and instability that is likely happening at this level. No other fractures or lesions noted at this time. IMPRESSION: It was my pleasure to have seen and examined Nicholas. I reviewed the patient's clinical syndrome, physical findings, and imaging studies during the appointment today. It is my impression that the patient has a diagnosis of. 1. 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 Bilateral lower extremity weakness 3. Mechanical back pain .DX:Diagnosis: Infective discitis : ICD10 = M46.30 / ICD9 = 722.90 / SNOMED = 141363350 .DX:Diagnosis: Muscle weakness of lower extremity : ICD10 = G83.10 / ICD9 = 728.87 / SNOMED = 176894144 .DX:Diagnosis: Mechanical low back pain : ICD10 = M54.50 / ICD9 = 724.2 / SNOMED = 739765165 Past Medical History Past Medical History: Hypertension, Osteoarthritis (OA), Thyroid Disorder Additional Past Medical History / Comment(s): has PICC line upper left arm- stated "inserted approx 2 mos ago."Staph infection from cyst removal in shoulder 02/2022 History of Any Multi-Drug Resistant Organisms: None Reported Past Surgical History: Orthopedic Surgery Additional Past Surgical History / Comment(s): cyst removed from L posterior shoulder, R elbow fracture with hardware, total R hip arthroplasty, R knee surgery for meniscus, L bicep muscle tear with repair, partial thyroidectomy, colonoscopies/benign polypectomies. Past Anesthesia/Blood Transfusion Reactions: No Reported Reaction Additional Past Anesthesia/Blood Transfusion Reaction / Comment(s): no blood tranfusions Past Psychological History: No Psychological Hx Reported Additional Psychological History / Comment(s): Pt resides with his spouse. He is independent. Smoking Status: Former smoker Past Alcohol Use History: Occasional Additional Past Alcohol Use History / Comment(s): Pt started smoking as a teen and quit in 1991. Past Drug Use History: Marijuana Additional Drug Use History / Comment(s): Occasional marijuana use pt aware no to use 24hrs before procedure - Past Family History Father Family Medical History: Renal Disease Additional Family Medical History / Comment(s): Father had heart problems and from renal failure. Mother Family Medical History: Cancer Additional Family Medical History / Comment(s): Mother of stomach cancer. Medications and Allergies Home Medications Medication Instructions Recorded Confirmed Type Alfuzosin HCl [Alfuzosin HCl ER] 10 mg PO HS 05/30/22 08/01/22 History Cyclobenzaprine [Flexeril] 10 mg PO TID PRN 05/30/22 08/01/22 History traMADol HCl [Ultram] 50 mg PO Q4HR PRN 05/30/22 08/01/22 History Metoprolol Tartrate [Lopressor] 25 mg PO BID #60 tab 06/07/22 08/01/22 Rx Naproxen [Naprosyn] 250 mg PO TID #30 tab 06/07/22 08/01/22 Rx ceFAZolin [Kefzol] 2 gm IVP Q8HR #126 each 06/07/22 08/01/22 Rx Lisinopril-Hctz 20-12.5 mg 1 tab PO BID 06/08/22 08/01/22 History [Zestoretic 20-12.5] Allergies Allergy/AdvReac Type Severity Reaction Status Date / Time No Known Allergies Allergy Verified 07/31/22 12:37 Physical Examination Osteopathic Statement: *. No significant issues noted on an osteopathic structural exam other than those noted in the History and Physical/Consult. Assessment and Plan Plan: Spine Surgery Risk Review Nicholas Verma is a 62-year-old male presenting for evaluation of severe mid back pain and difficulty with ADLs secondary to osteomyelitis discitis. It was my pleasure to have seen and examined Nicholas Verma. In our visit today we have had a chance to go over subjective complaints, physical examination findings and treatments including the natural course history without intervention and various interventional options. The patients imaging demonstrates T9-T10 osteo-discitis with severe erosive changes and progressive erosive changes pending instability. On physical exam, Nicholas Verma demonstrates severe mid back pain and difficulty with ADLs secondary to this pain beginning myelopathy changes. I have explained to the patient that as their condition progresses it will cause further neurological deficits and eventual paralysis. Based on the patients imaging, physical exam, and the rapid progression and disabling nature of their symptoms, at this time I recommend surgery in the form of a: T7 to L1 stab ilization with T9-T10 decompression and evacuation of disc space with antibiotic spacer placement. I discussed the risk and benefits of this procedure at length with Nicholas Verma. The patient and his agreed to considered pursuing the procedure abovementioned. Prior to surgery, she should follow up with her PCP (Cardio, ID, IM etc) for clearance. Questions were invited and answered, and the patient wishes to proceed as outlined below. Currently, I am recommendin. T7 to L1 stabilization with T9-T10 decompression and evacuation of disc space with antibiotic spacer placement 2. Follow up with PCP for surgical clearance 3. Review of surgical risks and benefits as well as an educational packet on the proposed surgical procedure. Risks: All surgical procedures come with inherent risks, including those related to positioning, anesthesia, intraoperative findings, and postoperative complications. It is important to understand that surgery does not come with any guarantee of a successful outcome as complications and adverse events are always possible. The patient was given a handout in office today discussing the surgical procedure and risks associated with the intervention, both of which were discussed with the patient. These risks include but are not limited to the following: * Experiencing same, different or even worse symptoms in back, neck, arms, or legs compared to before surgery. * Requiring further surgery or other forms of treatment presently or at some time in the future at same or other levels of the intended spine surgery. * On an extreme but fortunately relatively rare basis severe complication such as blindness, stroke, heart attack, temporary and/or permanent nerve injury, paralysis, coma, or may occur, sometimes without known explanation. * Surgical complications may include but are not limited to risk of infection, fluid accumulation in the surgical dissection site, including a seroma or hematoma, that requires additional surgery, wound drainage, bleeding, new numbness or weakness, vision changes/loss, spinal fluid leakage, non-healing and/or infected incision, headaches, difficulty or inability to swallow, hoarseness, hemopneumothorax, pneumothorax, impotence, retrograde ejaculation, vaginal dryness; injury to nerves, spinal cord, blood vessels, lymphatics or other vital organs (i.e., bowel injury, injury to the great vessels); heterotopic bone formation; complications related to the hardware such as screws, rods, cages including misplaced hardware, device failure, instrumentation at the wrong spine level, hardware fracture/breakage, or hardware loosening; vertebral failure of the spinal column above or below the newly placed hardware; retained surgical instrumentations or devices and the need for further surgery. * Medical risks of the planned spine surgery include but are not limited to generalized Infections to the whole body or local areas outside of the surgical site (sepsis), heart attack, bleeding, anaphylaxis, meningitis, seizure, epilepsy, hearing loss, burn long, laceration of the head or other areas of the body, bruising, hypersensitivity of the skin, bladder over diste nsion; allergic reaction; shoulder injury related to positioning; fat, blood and air clots to other areas of the body like heart, lungs, brain; failure of internal organs such as lungs, kidneys, liver and excessive bleeding. If blood transfusions are necessary, note that transfusions may cause intolerance reactions such as anaphylaxis or other complex reactions. * Despite best efforts, the results of spine surgery might not heal in terms of bone, soft tissues such as skin, fascia, ligaments, and joints. Additionally, in order to achieve best possible results, spine surgery may be carried out b eyond the initially planned levels and involve decompression, fusion including insertion of hardware at levels other than the original intended area of surgical interest change some portions of the procedure in order to ensure the best possible outcomes. * With spine surgery and spinal fusion, there are different off label uses of instrumentation (devices, implants and hardware) as well as biological substances (bone morphogenic proteins, demineralized bone matrix) as well as using extra bone from allograft sources (i.e. cadaver bone) or autograft (iliac crest bone, ribs, or the spine itself). The patient has been given information about these practices and their inherent risks and benefits. The patient has had a chance to review all the listed information, has been given print outs detailing this information, and has had all his/her questions answered to their satisfaction. It was my pleasure to have seen and examined Nicholas Verma. In our visit today we have had a chance to go over my understanding of our patient's current condition, the natural course history without intervention and various interventional options. Questions were invited and answered, and the patient wishes to proceed as outlined above. I have seen and examined the patient for 25 minutes and we have spent more than 50% of the time in repeat and detailed counseling about the patient's condition, its natural course history with out and as much as can be predicted with surgery and re-review of various surgical treatment options. In conclusion, Nicholas Verma and his requested we proceed with the above suggested surgery and are willing to accept risks and limitations of the suggested surgery as nature of the disease process and our best attempts at treatment for the condition. Thank you again for allowing us to be part of your patient's care. Please don't hesitate to contact me if you have any further questions. Signed and authenticated by: [facility] [address] [facility], [address] [address]
[2022-08-02] MEDS: LACTATED RINGERS 1,000 ML IV SCH ×2 (06:57→07:42)
[2022-08-02] MEDS: ONDANSETRON 4 MG/2 ML VIAL IVP ONE ×2 (07:14→17:21)
[2022-08-02] MEDS ORDERED: LACTATED RINGERS 1,000 ML IV ONE ×6 (07:42→16:24)
[2022-08-02] MEDS ORDERED: BUPIVACAINE (PF) 0.25% 30 ML VIAL SQ ONE (08:46)
[2022-08-02] MEDS ORDERED: ceFAZolin 3,000 MG in SODIUM CHLORIDE 0.9% IRRIGATIO 3,000 ML IRRIGATION ONE (08:46)
[2022-08-02] MEDS ORDERED: GENTAMICIN 40 MG/ML 2 ML VIAL IRRIGATION ONE (08:47)
[2022-08-02 09:24] LABS: Allen Test Performed? Yes
[2022-08-02 09:27] LABS: HCT 35.9 % (39.0-53.0); HGB 12.1 gm/dL (13.0-17.5); MCH 29.9 pg (25.0-35.0); MCHC 33.7 g/dL (31.0-37.0); MCV 88.9 fL (80.0-100.0); Mean Platelet Volume 6.9; Platelet Count 391 k/uL (150-450); RBC 4.03 m/uL (4.30-5.90); RDW 15.8 % (11.5-15.5); WBC 9.6 k/uL (3.8-10.6)
[2022-08-02 09:34] LABS: ABG Base Excess -7.6 mmol/L; ABG HCO3 18 mmol/L (21-25); ABG Hematocrit 28 % (34.0-46.0); ABG PCO2 31 mmHg (35-45); ABG PH 7.37 (7.35-7.45); ABG PO2 193 mmHg (83-108); ABG TCO2 19 mmol/L (19-24)
[2022-08-02 09:36] LABS: African American GFR (CKD) >90 (>60 ml/min/1.73 sqM); Anion Gap 10 mmol/L; Blood Urea Nitrogen 17 mg/dL (9-20); Calcium 8.7 mg/dL (8.4-10.2); Carbon Dioxide 24 mmol/L (22-30); Chloride 102 mmol/L (98-107); Glucose 146 mg/dL (74-99); Non-African American GFR(CKD) 88 (>60 ml/min/1.73 sqM); Sodium 136 mmol/L (137-145)
[2022-08-02 09:47] LABS: Prothrombin Time 10.6 sec (9.0-12.0)
[2022-08-02] MEDS ORDERED: GENTAMICIN 40 MG/ML 2 ML VIAL IM ONE ×2 (12:17)
[2022-08-02] MEDS ORDERED: SODIUM CHLORIDE 0.9% 100 ML with ceFAZolin 2,000 MG IV ONE ×2 (12:30)
[2022-08-02] MEDS ORDERED: VANCOMYCIN 1,000 MG VIAL MISCELLANE ONE (13:22)
[2022-08-02] MEDS ORDERED: HYDROcodone/APAP 10-325MG 1 EACH TAB PO PRN (13:27)
[2022-08-02] MEDS ORDERED: CYCLOBENZAPRINE 5 MG TAB PO PRN (13:27)
[2022-08-02] MEDS ORDERED: HYDROcodone/APAP 5-325MG 1 EACH TAB PO PRN (13:27)
[2022-08-02] MEDS ORDERED: SENNOSIDES-DOCUSATE SODIUM 1 EACH TAB PO PRN (13:27)
--- NOTE | 2022-08-02 16:04 | XR ---
Fluoroscopy HISTORY: Thoracic lumbar stabilization 63 seconds fluoroscopy time supplied to the referring clinician. 4 intraoperative C-arm images docum ent the procedure. See dictated report from orthopedic surgery.
--- NOTE | 2022-08-02 16:32 | XR ---
EXAMINATION TYPE: XR chest 1V confirm line [facility] DATE OF EXAM: 08/02/2022 COMPARISON: Chest x-ray 05/30/2022 HISTORY: Status post right internal jugular central venous catheter placement TECHNIQUE: Single frontal view of the chest is obtained. FINDINGS: Right jugular central venous catheter is noted, distal tip is coursing towards the level o f the cavoatrial junction. There is no evident pneumothorax or pleural effusion. Postop changes are n oted to the thoracolumbar spine. Cardiac mediastinal silhouette is within normal limits. Left-sided P ICC line is also noted with the tip near the level of the superior vena cava. There are overlying art ifacts. IMPRESSION: No evident complication status post central venous catheter placement.
[2022-08-02 16:46] LABS: Glucose,Whole Blood 145 mg/dL (70-110)
[2022-08-02] MEDS: HYDROmorphone 1 MG/ML 1 ML SYRINGE IVP PRN ×2 (16:57→20:10)
[2022-08-02] MEDS: GABAPENTIN 300 MG CAP PO SCH ×2 (17:31→20:47)
[2022-08-02] MEDS: ACETAMINOPHEN TAB 325 MG TAB PO SCH (17:52)
--- NOTE | 2022-08-02 18:03 | P.CONS ---
History of Present Illness - Reason for Consult Consult date: 08/02/22 - Chief Complaint back pain - History of Present Illness 62-year-old male with history of hypertension, multiple sports injury to multiple joints, BPH, with recent hx of MSSA discitis after a recent shoulder surgery resulting in severe chronic pain to the mid back, s/p 3 months total of IV antibiotics, failed treatment with persistent back pain, currently s/p T7 to L1 stabilization with T9-T10 decompression and evacuation of disc space with antibiotic spacer placement. He was seen postoperatively, was complaining of severe back pain. Other than that denied chest pain or shortness of breath. No fevers or chills. No nausea or vomiting. Review of Systems Complete review of system performed, pertinent positives per HPI, otherwise negative Past Medical History Past Medical History: Hypertension, Osteoarthritis (OA), Thyroid Disorder Additional Past Medical History / Comment(s): has PICC line upper left arm- stated "inserted approx 2 mos ago."Staph infection from cyst removal in shoulder 02/2022 History of Any Multi-Drug Resistant Organisms: None Reported Past Surgical History: Orthopedic Surgery Additional Past Surgical History / Comment(s): cyst removed from L posterior shoulder, R elbow fracture with hardware, total R hip arthroplasty, R knee surgery for meniscus, L bicep muscle tear with repair, partial thyroidectomy, colonoscopies/benign polypectomies. Past Anesthesia/Blood Transfusion Reactions: No Reported Reaction Additional Past Anesthesia/Blood Transfusion Reaction / Comm: no blood tranfusions Past Psychological History: No Psychological Hx Reported Additional Psychological History / Comment(s): Pt resides with his spouse. He is independent. Smoking Status: Former smoker Past Alcohol Use History: Occasional Additional Past Alcohol Use History / Comment(s): Pt started smoking as a teen and quit in 1991. Past Drug Use History: Marijuana Additional Drug Use History / Comment(s): Occasional marijuana use pt aware no to use 24hrs before procedure - Past Family History Father Family Medical History: Renal Disease Additional Family Medical History / Comment(s): Father had heart problems and from renal failure. Mother Family Medical History: Cancer Additional Family Medical History / Comment(s): Mother of stomach cancer. Medications and Allergies Home Medications Medication Instructions Recorded Confirmed Type Alfuzosin HCl [Alfuzosin HCl ER] 10 mg PO HS 05/30/22 08/02/22 History Cyclobenzaprine [Flexeril] 10 mg PO TID PRN 05/30/22 08/02/22 History traMADol HCl [Ultram] 50 mg PO Q4HR PRN 05/30/22 08/02/22 History Metoprolol Tartrate [Lopressor] 25 mg PO BID #60 tab 06/07/22 08/02/22 Rx Naproxen [Naprosyn] 250 mg PO TID #30 tab 06/07/22 08/01/22 Rx ceFAZolin [Kefzol] 2 gm IVP Q8HR #126 each 06/07/22 08/02/22 Rx Lisinopril-Hctz 20-12.5 mg 1 tab PO BID 06/08/22 08/02/22 History [Zestoretic 20-12.5] Allergies Allergy/AdvReac Type Severity Reaction Status Date / Time No Known Allergies Allergy Verified 08/02/22 06:31 Physical Exam Vitals: Vital Signs Temp Pulse Pulse Resp BP BP BP 08/02/22 16:15 99 18 157/85 08/02/22 15:43 107 H 18 145/84 08/02/22 15:28 96 16 144/81 08/02/22 15:12 97 18 153/67 142/76 08/02/22 14:57 104 H 18 157/62 140/75 08/02/22 14:42 96 16 146/58 140/75 08/02/22 14:27 97.2 F L 97 16 133/74 08/02/22 06:37 98.5 F 85 16 140/82 Pulse Ox 08/02/22 16:15 99 08/02/22 15:43 99 08/02/22 15:28 95 08/02/22 15:12 95 08/02/22 14:57 95 08/02/22 14:42 100 08/02/22 14:27 100 08/02/22 06:37 97 Intake and Output 08/02/22 08/02/22 08/02/22 06:59 14:59 22:59 Intake Total 3651 1500 Output Total 1265 500 Balance 2386 1000 Intake: IV 3651 1500 Output: Urine 265 500 Estimated Blood Loss 1000 Other: Weight 113.6 kg 113.6 kg Constitutional: No acute distress, conversant, pleasant Eyes:Anicteric sclerae, moist conjunctiva, no lid-lag, PERRLA, ENMT: Oropharynx clear, no erythema, exudates Neck: Supple, FROM, no masses, or JVD, No carotid bruits, No thyromegaly Lungs: Clear to auscultation, Clear to percussion, Normal respiratory effort, no accessory muscle use Cardiovascular: Heart regular in rate and rhythm, No murmurs, gallops, or rubs, No peripheral edema Abdominal: Soft, Nontender, no guarding, rebound or rigidity, Normoactive bowel sounds, No hepatomegaly, No splenomegaly, No palpable mass Skin: Normal temperature, tone, texture, turgor, no induration, No subcutaneous nodules, No rash, lesions, No ulcers Extremities: No digital cyanosis, No clubbing, Pedal pulses intact and symmetrical, Radial pulses intact and symmetrical, No calf tenderness Psychiatric: Alert and oriented to person, place and time, appropriate affect, intact judgement Neuro: Muscles Strength 5/5 in all 4 extremities, Sensation to light touch grossly present throughout, Cranial nerves II-XII grossly intact, no focal sensory deficits Results CBC & Chem 7: 08/02/22 09:15 08/02/22 09:15 Labs: Abnormal Lab Results - Last 24 Hours (Table) 08/02/22 08/02/22 08/02/22 Range/Units 09:15 09:15 09:15 RBC 4.03 L (4.30-5.90) m/uL Hgb 12.1 L (13.0-17.5) gm/dL Hct 35.9 L (39.0-53.0) % RDW 15.8 H (11.5-15.5) % ABG pCO2 31 L (35-45) mmHg ABG pO2 193 H (83-108) mmHg ABG HCO3 18 L (21-25) mmol/L ABG O2 Saturation 100.0 H (94-97) % ABG Hematocrit 28 L (34.0-46.0) % Hemoglobin 9.2 L (13.0-17.5) gm/dL Sodium 136 L (137-145) mmol/L Glucose 146 H (74-99) mg/dL POC Glucose (mg/dL) (70-110) mg/dL 08/02/22 Range/Units 16:45 RBC (4.30-5.90) m/uL Hgb (13.0-17.5) gm/dL Hct (39.0-53.0) % RDW (11.5-15.5) % ABG pCO2 (35-45) mmHg ABG pO2 (83-108) mmHg ABG HCO3 (21-25) mmol/L ABG O2 Saturation (94-97) % ABG Hematocrit (34.0-46.0) % Hemoglobin (13.0-17.5) gm/dL Sodium (137-145) mmol/L Glucose (74-99) mg/dL POC Glucose (mg/dL) 145 H (70-110) mg/dL Assessment and Plan Plan: Acute on chronic back pain T9-T10 osteodiscitis with severe erosive changes He is s/p T7 to L1 stabilization with T9-T10 decompression and evacuation of disc space with antibiotic spacer placement Cultures sent intraoperatively Currently on cefazolin Opiates for pain control Consult ID HTN Resume bp meds Sinus tachycardia Likely sec to pain Pain control with opiates Resuem lopressor BPH Chronic joint pain. Stable resume meds DVT prophylaxis Please start DIANA recommend lovenox s.q 40mg daily.
[2022-08-02] MEDS ORDERED: CYCLOBENZAPRINE 10 MG TAB PO PRN (18:05)
[2022-08-02] MEDS: LISINOPRIL-HCTZ 20-12.5 MG 1 EACH TAB PO SCH (20:47)
[2022-08-02] MEDS: TAMSULOSIN 0.4 MG CAP.ER.24H PO SCH (20:47)
[2022-08-02] MEDS: METOPROLOL TARTRATE 25 MG TAB PO SCH (20:47)
--- NOTE | 2022-08-02 22:58 | P.CONS ---
History of Present Illness - Reason for Consult Consult date: 08/02/22 Discitis Requesting physician: Sav Lofton - Chief Complaint Back pain X weeks - History of Present Illness Patient is a 62-year-old male who was recently admitted in this hospital and the patient was diagnosed with T9-10 discitis and osteomyelitis patient did have MSSA bacteremia at that point likely source of his discitis patient was evaluated by orthopedic surgery at that point and recommended against any surgical intervention patient did get a PICC line and was advised a 6-week course of IV cefazolin after a month of physical therapy the patient was still complaining of significant pain to the mid back area for the patient did have a repeat MRI of the thoracic spine obtained on 07/17/2022 with evidence of slight progression and did have a possible phlegmon formation for the patient has been referred to Dr. Arce for surgical intervention patient was taken to the OR and the patient is status post T7-L1 stabilization with T9T10 decompr ession, cultures have been obtained which are currently pending has been given cefazolin perioperatively infectious disease was consulted for further management of antibiotic therapy. Patient currently denies having any fever or any chills patient did have some postop pain to the thoracolumbar spine area however controlled with the current medication patient denies having any chest pain or shortness of breath or cough patient denies having any nausea no vomiting no abdominal pain and no diarrhea Review of Systems Positive point has been mentioned in the HPI rest of the systems are negative Past Medical History Past Medical History: Hypertension, Osteoarthritis (OA), Thyroid Disorder Additional Past Medical History / Comment(s): has PICC line upper left arm- stated "inserted approx 2 mos ago."Staph infection from cyst removal in shoulder 02/2022 History of Any Multi-Drug Resistant Organisms: None Reported Past Surgical History: Orthopedic Surgery Additional Past Surgical History / Comment(s): cyst removed from L posterior shoulder, R elbow fracture with hardware, total R hip arthroplasty, R knee surgery for meniscus, L bicep muscle tear with repair, partial thyroidectomy, colonoscopies/benign polypectomies. Past Anesthesia/Blood Transfusion Reactions: No Reported Reaction Additional Past Anesthesia/Blood Transfusion Reaction / Comm: no blood tranfusions Past Psychological History: No Psychological Hx Reported Additional Psychological History / Comment(s): Pt resides with his spouse. He is independent. Smoking Status: Former smoker Past Alcohol Use History: Occasional Additional Past Alcohol Use History / Comment(s): Pt started smoking as a teen and quit in 1991. Past Drug Use History: Marijuana Additional Drug Use History / Comment(s): Occasional marijuana use pt aware no to use 24hrs before procedure - Past Family History Father Family Medical History: Renal Disease Additional Family Medical History / Comment(s): Father had heart problems and from renal failure. Mother Family Medical History: Cancer Additional Family Medical History / Comment(s): Mother of stomach cancer. Medications and Allergies Home Medications Medication Instructions Recorded Confirmed Type Alfuzosin HCl [Alfuzosin HCl ER] 10 mg PO HS 05/30/22 08/02/22 History Cyclobenzaprine [Flexeril] 10 mg PO TID PRN 05/30/22 08/02/22 History traMADol HCl [Ultram] 50 mg PO Q4HR PRN 05/30/22 08/02/22 History Metoprolol Tartrate [Lopressor] 25 mg PO BID #60 tab 06/07/22 08/02/22 Rx Naproxen [Naprosyn] 250 mg PO TID #30 tab 06/07/22 08/01/22 Rx ceFAZolin [Kefzol] 2 gm IVP Q8HR #126 each 06/07/22 08/02/22 Rx Lisinopril-Hctz 20-12.5 mg 1 tab PO BID 06/08/22 08/02/22 History [Zestoretic 20-12.5] Allergies Allergy/AdvReac Type Severity Reaction Status Date / Time No Known Allergies Allergy Verified 08/02/22 06:31 Physical Exam Vitals: Vital Signs Temp Pulse Pulse Pulse Resp BP BP 08/02/22 18:00 113 H 14 140/90 08/02/22 17:30 104 H 14 140/90 08/02/22 17:00 97.6 F 108 H 12 08/02/22 16:15 99 18 08/02/22 15:43 107 H 18 08/02/22 15:28 96 16 08/02/22 15:12 97 18 153/67 08/02/22 14:57 104 H 18 157/62 08/02/22 14:42 96 16 146/58 08/02/22 14:27 97.2 F L 97 16 08/02/22 06:37 98.5 F 85 16 BP BP Pulse Ox 08/02/22 18:00 95 08/02/22 17:30 91 L 08/02/22 17:00 90 L 08/02/22 16:15 157/85 99 08/02/22 15:43 145/84 99 08/02/22 15:28 144/81 95 08/02/22 15:12 142/76 95 08/02/22 14:57 140/75 95 08/02/22 14:42 140/75 100 08/02/22 14:27 133/74 100 08/02/22 06:37 140/82 97 Intake and Output 08/02/22 08/02/22 08/02/22 06:59 14:59 22:59 Intake Total 3651 1590 Output Total 1265 915 Balance 2386 675 Intake: IV 3651 1590 LR 40 ceFAZolin 2 gm In Sodium 50 Chloride 0.9% 50 ml @ 100 mls/hr IVPB Q8HR [facility] Rx# :[id number] Output: Drainage 140 Back 140 Urine 265 775 Estimated Blood Loss 1000 Other: Weight 113.6 kg 113.6 kg ABP, PAP, CO, CI - Last 8 Hours Arterial Blood Pressure 171/71 GENERAL DESCRIPTION: Middle-aged male lying in bed, no distress. No tachypnea or accessory muscle of respiration use. HEENT: Shows Pallor , no scleral icterus. Oral mucous membrane is dry. No pharyngeal erythema or thrush NECK: Trachea central, no thyromegaly. LUNGS: Unlabored breathing. Clear to auscultation anteriorly. No wheeze or crackle. HEART: S1, S2, regular rate and rhythm. No loud murmur ABDOMEN: Soft, no tenderness , guarding or rigidity, no organomegaly EXTREMITIES: No edema of feet. SKIN: No rash, no masses palpable. NEUROLOGICAL: The patient is awake, alert, oriented x3, mood and affect normal. Results CBC & Chem 7: 08/03/22 04:05 08/03/22 14:45 Labs: Abnormal Lab Results - Last 24 Hours (Table) 08/02/22 08/02/22 08/02/22 Range/Units 09:15 09:15 09:15 RBC 4.03 L (4.30-5.90) m/uL Hgb 12.1 L (13.0-17.5) gm/dL Hct 35.9 L (39.0-53.0) % RDW 15.8 H (11.5-15.5) % ABG pCO2 31 L (35-45) mmHg ABG pO2 193 H (83-108) mmHg ABG HCO3 18 L (21-25) mmol/L ABG O2 Saturation 100.0 H (94-97) % ABG Hematocrit 28 L (34.0-46.0) % Hemoglobin 9.2 L (13.0-17.5) gm/dL Sodium 136 L (137-145) mmol/L Glucose 146 H (74-99) mg/dL POC Glucose (mg/dL) (70-110) mg/dL 08/02/22 Range/Units 16:45 RBC (4.30-5.90) m/uL Hgb (13.0-17.5) gm/dL Hct (39.0-53.0) % RDW (11.5-15.5) % ABG pCO2 (35-45) mmHg ABG pO2 (83-108) mmHg ABG HCO3 (21-25) mmol/L ABG O2 Saturation (94-97) % ABG Hematocrit (34.0-46.0) % Hemoglobin (13.0-17.5) gm/dL Sodium (137-145) mmol/L Glucose (74-99) mg/dL POC Glucose (mg/dL) 145 H (70-110) mg/dL Assessment and Plan (1) Discitis thoracic region Current Visit: No Status: Acute Code(s): M46.44 - DISCITIS, UNSPECIFIED, THORACIC REGION SNOMED Code(s): 170603247 Plan: 1-Patient with a T910 discitis in this patient seem to have failed medical therapy in this patient status post T7-L1 stabilization and decompression and all cultures which are currently pending, will need to call for the MRSA to be the likely pathogen that was grown from the blood culture last admission 2we will continue the patient on cefazolin 2 g every 8 hours while waiting for the culture to finalize We will follow on clinical condition and cultures to further adjust medication if needed Thank you for this consultation will follow this patient along with you Time with Patient: Greater than 30
[2022-08-03] MEDS: HYDROmorphone 1 MG/ML 1 ML SYRINGE IVP PRN ×6 (00:06→21:26)
[2022-08-03] MEDS: ACETAMINOPHEN TAB 325 MG TAB PO SCH ×4 (01:32→18:03)
[2022-08-03 04:51] LABS: Anisocytosis Slight; Basophils % (A) 0 %; Eosinophils % (A) 0 %; HCT 26.5 % (39.0-53.0); Lymphocytes # (A) 0.6 k/uL (1.0-4.8); Lymphocytes % (A) 5 %; MCH 30.7 pg (25.0-35.0); MCHC 34.5 g/dL (31.0-37.0); Mean Platelet Volume 6.9; Monocytes # (A) 0.7 k/uL (0-1.0); Monocytes % (A) 7 %; Neutrophils # (A) 8.8 k/uL (1.3-7.7); Neutrophils % (A) 86 %; Platelet Count 290 k/uL (150-450); RBC 2.97 m/uL (4.30-5.90); WBC 10.2 k/uL (3.8-10.6)
[2022-08-03 05:00] LABS: HGB 9.1 gm/dL (13.0-17.5)
[2022-08-03] MEDS: LACTATED RINGERS 1,000 ML IV SCH (06:12)
[2022-08-03] MEDS: CYCLOBENZAPRINE 10 MG TAB PO SCH ×3 (09:44→21:25)
[2022-08-03] MEDS: METOPROLOL TARTRATE 25 MG TAB PO SCH ×2 (09:44→21:25)
[2022-08-03] MEDS: HYDROcodone/APAP 10-325MG 1 EACH TAB PO SCH ×3 (09:44→18:04)
[2022-08-03] MEDS: LISINOPRIL-HCTZ 20-12.5 MG 1 EACH TAB PO SCH ×2 (09:44→21:25)
[2022-08-03] MEDS: GABAPENTIN 300 MG CAP PO SCH ×3 (09:46→21:25)
[2022-08-03] MEDS: HYDROcodone/APAP 5-325MG 1 EACH TAB PO SCH ×2 (12:12→18:05)
--- NOTE | 2022-08-03 12:16 | P.PN ---
Subjective Progress Note Date: 08/03/22 Principal diagnosis: 62 yo male POD1 T7-L1 stabilization and fusion with T9-10 phlegmon evacuation and stabiliation for T9-10 Osteomyelitis discitis Pt s/e this AM 0730. Doing well. Some back pain but otherwise controlled. Has not been up yet. Doing IS in room. Urbano in place, good out put. Art line correlating well. Central line in place. No issues overnight. Denies N/T. Colten f/c/sob/cp. Objective - Vital Signs Vital signs: Vital Signs Temp 98.5 F 08/03/22 04:00 Pulse 105 H 08/03/22 07:00 Resp 17 08/03/22 07:00 BP 100/65 08/03/22 07:00 Pulse Ox 97 08/03/22 07:00 FiO2 Intake & Output 08/02/22 08/03/22 08/03/22 18:59 06:59 18:59 Intake Total 5241 340 20 Output Total 2180 2230 100 Balance 3061 -1890 -80 Weight 113.6 kg 120 kg Intake: IV 5241 340 20 LR 40 240 20 ceFAZolin 2 gm In Sodium 50 100 Chloride 0.9% 50 ml @ 100 mls/hr IVPB Q8HR [facility] Rx# :[id number] Output: Drainage 140 80 Back 140 80 Urine 1040 2150 100 Estimated Blood Loss 1000 Other: Voiding Method Indwelling Catheter Indwelling Catheter ABP, PAP, CO, CI - Last Documented Arterial Blood Pressure 120/68 - Exam Patient is alert and oriented 3 appears well-nourished well-hydrated is in no acute distress. They do not appear septic. There is TTP about the incision site which is CDI at this time Drain in place 100 cc Lower extremities with 4+ out of 5 strength in all major muscle groups post surgical deconditioning, no focal deficits Upper extremities show 4+/5 strength in all major muscle groups. same There is FROM that is painless of the b/l UE and LE in all major joints. They are intact to light touch sensation in C5-T1 and L2 to S1 nerve distribution. DTR 2/4 all upper and lower extremities Patient has palpable dorsalis pedis was posterior tibial pulses. Palpable Rad Ulnar pulses b/l Compartments are soft and compressible. Patient shows a negative Homans Neg babinski Neg clonus Neg hoffmans Cranial nerves II through XII are grossly intact. - Labs CBC & Chem 7: 08/03/22 04:05 08/02/22 09:15 Labs: Abnormal Lab Results - Last 24 Hours (Table) 08/02/22 08/03/22 Range/Units 16:45 04:05 RBC 2.97 L (4.30-5.90) m/uL Hgb 9.1 L D (13.0-17.5) gm/dL Hct 26.5 L (39.0-53.0) % RDW 16.0 H (11.5-15.5) % Neutrophils # 8.8 H (1.3-7.7) k/uL Lymphocytes # 0.6 L (1.0-4.8) k/uL POC Glucose (mg/dL) 145 H (70-110) mg/dL Microbiology - Last 24 Hours (Table) 08/02/22 14:00 Acid Fast Bacilli Culture - Preliminary Other - Other 08/02/22 14:00 Anaerobic Culture - Preliminary Other - Other 08/02/22 14:00 Wound Culture - Preliminary Other - Other 08/02/22 14:00 Fungal Culture - Preliminary Other - Other 08/02/22 14:00 Fungal Culture - Preliminary Other - Other 08/02/22 14:00 Tissue Culture - Preliminary Other - Other 08/02/22 14:00 Anaerobic Culture - Preliminary Other - Other 08/02/22 14:00 Fungal Culture - Preliminary Other - Other 08/02/22 14:00 Fungal Culture - Preliminary Other - Other 08/02/22 14:00 Tissue Culture - Preliminary Other - Other 08/02/22 14:00 Acid Fast Bacilli Culture - Preliminary Other - Other 08/02/22 14:00 Wound Culture - Preliminary Other - Other 08/02/22 14:00 Anaerobic Culture - Preliminary Other - Other 08/02/22 14:00 Anaerobic Culture - Preliminary Other - Other Assessment and Plan Assessment: POD1 T7-L1 decompression and stabilization for T9-10 osteodiscitis Plan: -Appreciate oim consultant and team management. -Activity: Ambulate QID, OOB all meals, up and about, limit lifting bending twisting to less than 5 lbs. Use walker or cane if needed for stability. -Daily PT/OT, increase ambulation strength and balance. -TLSO when up and about for long walks. NO need while in chair or short distance -Pain control: Adequate at this time -Meds: reviewed -GI ppx: senAlfonso bermanalax -HANNAH urbano when up and about, bedside commode if needed -DVT PPX: OK to restart Heparin tonight -Hygiene: Shower today. Maintain dressing clean and dry. Meticulous cleaning after BMs away from incision site -Drains: Maintain for now. Record output -Encourage IS 10x/hr -Dispo: Pending
--- NOTE | 2022-08-03 13:16 | P.PN ---
Subjective Progress Note Date: 08/03/22 Principal diagnosis: Back pain Doing well, pain is controlled with pain meds. Trying to move his legs in bed. Denied any n/v. No fevers. Objective - Vital Signs Vital signs: Vital Signs Temp 98.5 F 08/03/22 04:00 Pulse 105 H 08/03/22 07:00 Resp 17 08/03/22 07:00 BP 100/65 08/03/22 07:00 Pulse Ox 97 08/03/22 07:00 FiO2 Intake & Output 08/02/22 08/03/22 08/03/22 18:59 06:59 18:59 Intake Total 5241 340 690 Output Total 2180 2230 760 Balance 3061 -2320 -70 Weight 113.6 kg 120 kg Intake: IV 5241 340 150 LR 40 240 100 ceFAZolin 2 gm In Sodium 50 100 50 Chloride 0.9% 50 ml @ 100 mls/hr IVPB Q8HR [facility] Rx# :[id number] Oral 540 Output: Drainage 140 80 160 Back 140 80 160 Urine 1040 2150 600 Estimated Blood Loss 1000 Other: Voiding Method Indwelling Catheter Indwelling Catheter ABP, PAP, CO, CI - Last Documented Arterial Blood Pressure 120/68 - Exam Constitutional: No acute distress, conversant, pleasant Eyes:Anicteric sclerae, moist conjunctiva, no lid-lag, PERRLA, ENMT: Oropharynx clear, no erythema, exudates Neck: Supple, FROM, no masses, or JVD, No carotid bruits, No thyromegaly Lungs: Clear to auscultation, Clear to percussion, Normal respiratory effort, no accessory muscle use Cardiovascular: Heart regular in rate and rhythm, No murmurs, gallops, or rubs, No peripheral edema Abdominal: Soft, Nontender, no guarding, rebound or rigidity, Normoactive bowel sounds, No hepatomegaly, No splenomegaly, No palpable mass Skin: Normal temperature, tone, texture, turgor, no induration, No subcutaneous nodules, No rash, lesions, No ulcers Extremities: No digital cyanosis, No clubbing, Pedal pulses intact and symmetrical, Radial pulses intact and symmetrical, No calf tenderness Psychiatric: Alert and oriented to person, place and time, appropriate affect, intact judgement Neuro: Muscles Strength 5/5 in all 4 extremities, Sensation to light touch grossly present throughout, Cranial nerves II-XII grossly intact, no focal sensory deficits - Labs CBC & Chem 7: 08/03/22 04:05 08/02/22 09:15 Labs: Abnormal Lab Results - Last 24 Hours (Table) 08/02/22 08/03/22 Range/Units 16:45 04:05 RBC 2.97 L (4.30-5.90) m/uL Hgb 9.1 L D (13.0-17.5) gm/dL Hct 26.5 L (39.0-53.0) % RDW 16.0 H (11.5-15.5) % Neutrophils # 8.8 H (1.3-7.7) k/uL Lymphocytes # 0.6 L (1.0-4.8) k/uL POC Glucose (mg/dL) 145 H (70-110) mg/dL Microbiology - Last 24 Hours (Table) 08/02/22 14:00 Acid Fast Bacilli Culture - Preliminary Other - Other 08/02/22 14:00 Anaerobic Culture - Preliminary Other - Other 08/02/22 14:00 Wound Culture - Preliminary Other - Other 08/02/22 14:00 Fungal Culture - Preliminary Other - Other 08/02/22 14:00 Fungal Culture - Preliminary Other - Other 08/02/22 14:00 Tissue Culture - Preliminary Other - Other 08/02/22 14:00 Anaerobic Culture - Preliminary Other - Other 08/02/22 14:00 Fungal Culture - Preliminary Other - Other 08/02/22 14:00 Fungal Culture - Preliminary Other - Other 08/02/22 14:00 Tissue Culture - Preliminary Other - Other 08/02/22 14:00 Acid Fast Bacilli Culture - Preliminary Other - Other 08/02/22 14:00 Wound Culture - Preliminary Other - Other 08/02/22 14:00 Anaerobic Culture - Preliminary Other - Other 08/02/22 14:00 Anaerobic Culture - Preliminary Other - Other Assessment and Plan Plan: Acute on chronic back pain T9-T10 osteodiscitis with severe erosive changes He is s/p T7 to L1 stabilization with T9-T10 decompression and evacuation of disc space with antibiotic spacer placement Cultures sent intraoperatively Currently on cefazolin Opiates for pain control ID following HTN Resume bp meds Sinus tachycardia Likely sec to pain, improved. Pain control with opiates Resume lopressor BPH Chronic joint pain. Stable resume meds DVT prophylaxis Please start DIANA recommend lovenox s.q 40mg daily. Weakness PT/OT
[2022-08-03] MEDS ORDERED: MORPHINE SULFATE 2 MG/ML SYRINGE IVP STA (14:37)
[2022-08-03 15:27] LABS: African American GFR (CKD) >90 (>60 ml/min/1.73 sqM); Anion Gap 9 mmol/L; Blood Urea Nitrogen 15 mg/dL (9-20); Calcium 8.6 mg/dL (8.4-10.2); Carbon Dioxide 29 mmol/L (22-30); Chloride 96 mmol/L (98-107); Glucose 123 mg/dL (74-99); Non-African American GFR(CKD) >90 (>60 ml/min/1.73 sqM); Potassium 3.9 mmol/L (3.5-5.1); Sodium 134 mmol/L (137-145)
--- NOTE | 2022-08-03 15:46 | P.PN ---
Subjective Progress Note Date: 08/03/22 Principal diagnosis: Discitis/Osteomyelitis thoracic spine Patient is a 62-year-old male who was recently admitted to this hospital and was with the T9-10 discitis with Osteomyelitis with MSSA bacteremia, patient is status post T7 patient underwent stabilization with T9- T10 decompression completed on 08/02/2022 along with wound cultures which are currently pending. On today's evaluation that is 08/03/2022, the patient denies any fever or chills, the patient back pain is currently controlled and is feeling better, denies having any chest pain shortness of breath or cough no nausea no vomiting and no diarrhea Objective - Vital Signs Vital signs: Vital Signs Temp 98.5 F 08/03/22 04:00 Pulse 105 H 08/03/22 07:00 Resp 17 08/03/22 07:00 BP 100/65 08/03/22 07:00 Pulse Ox 97 08/03/22 07:00 FiO2 Intake & Output 08/02/22 08/03/22 08/03/22 18:59 06:59 18:59 Intake Total 5241 340 20 Output Total 2180 2230 100 Balance 3061 -1890 -80 Weight 113.6 kg 120 kg Intake: IV 5241 340 20 LR 40 240 20 ceFAZolin 2 gm In Sodium 50 100 Chloride 0.9% 50 ml @ 100 mls/hr IVPB Q8HR [facility] Rx# :[id number] Output: Drainage 140 80 Back 140 80 Urine 1040 2150 100 Estimated Blood Loss 1000 Other: Voiding Method Indwelling Catheter Indwelling Catheter ABP, PAP, CO, CI - Last Documented Arterial Blood Pressure 120/68 - Exam GENERAL DESCRIPTION: Middle-age male lying in bed in no distress RESPIRATORY SYSTEM: Unlabored breathing , decreased breath sounds at bases HEART: S1 S2 regular rate and rhythm , ABDOMEN: Soft , no tenderness EXTREMITIES: No edema feet - Labs CBC & Chem 7: 08/03/22 04:05 08/03/22 14:45 Labs: Abnormal Lab Results - Last 24 Hours (Table) 08/02/22 08/03/22 Range/Units 16:45 04:05 RBC 2.97 L (4.30-5.90) m/uL Hgb 9.1 L D (13.0-17.5) gm/dL Hct 26.5 L (39.0-53.0) % RDW 16.0 H (11.5-15.5) % Neutrophils # 8.8 H (1.3-7.7) k/uL Lymphocytes # 0.6 L (1.0-4.8) k/uL POC Glucose (mg/dL) 145 H (70-110) mg/dL Microbiology - Last 24 Hours (Table) 08/02/22 14:00 Acid Fast Bacilli Culture - Preliminary Other - Other 08/02/22 14:00 Anaerobic Culture - Preliminary Other - Other 08/02/22 14:00 Wound Culture - Preliminary Other - Other 08/02/22 14:00 Fungal Culture - Preliminary Other - Other 08/02/22 14:00 Fungal Culture - Preliminary Other - Other 08/02/22 14:00 Tissue Culture - Preliminary Other - Other 08/02/22 14:00 Anaerobic Culture - Preliminary Other - Other 08/02/22 14:00 Fungal Culture - Preliminary Other - Other 08/02/22 14:00 Fungal Culture - Preliminary Other - Other 08/02/22 14:00 Tissue Culture - Preliminary Other - Other 08/02/22 14:00 Acid Fast Bacilli Culture - Preliminary Other - Other 08/02/22 14:00 Wound Culture - Preliminary Other - Other 08/02/22 14:00 Anaerobic Culture - Preliminary Other - Other 08/02/22 14:00 Anaerobic Culture - Preliminary Other - Other Assessment and Plan (1) Discitis thoracic region Current Visit: No Status: Acute Code(s): M46.44 - DISCITIS, UNSPECIFIED, THORACIC REGION SNOMED Code(s): 475758729 Plan: 1-Patient with a T910 discitis in this patient seem to have failed medical therapy in this patient status post T7-L1 stabilization and decompression and all cultures which are currently pending, will need to call for the MRSA to be the likely pathogen that was grown from the blood culture last admission 2OR cultures are currently pending 3-we will continue the patient on cefazolin 2 g every 8 hours while waiting for the culture to finalize
--- NOTE | 2022-08-03 16:58 | CT ---
EXAMINATION TYPE: CT thoracic spine wo con CT DLP: 2038.2 mGycm, Automated exposure control for dose reduction was used. DATE OF EXAM: 08/03/2022 4:48 PM COMPARISON: CT T-spine 07/31/2022 CLINICAL INDICATION:Male, 62 years old with history of s/p T7 to L1 stabilization with T9-T10 decompr ession;, post-op TECHNIQUE: Axial images of the thoracic spine were obtained without contrast. Coronal and sagittal re formats were performed. FINDINGS: Streak artifact limits evaluation slightly. There is is postsurgical straightening of the spine. Post surgical changes of the thoracic spine with fixation hardware in place. Hardware extends from T7 to L 1. Discectomy at T9-T10. Fixation hardware appears intact. There is no evidence of fracture. Skin sta ples are seen posterior spine. Surgical bed gas is noted. Multilevel disc degeneration changes are se en throughout the spine. Evaluation of the spinal canal for stenosis at T9-T10 is a limited given streak artifact. There is ga s seen in the surgical bed at this level with poor visualization of the normal minus structures secon kaushal to streak artifact. IMPRESSION: 1. Postsurgical changes of the spine with hardware in place and intact. There is no evidence of acut e fracture. 2. T9-T10 discectomy with multiple foci of gas in the surgical bed at this level around the thecal s ac and possibly within the thecal sac. Evaluation of spinal stenosis is limited given post surgical c hanges in streak artifact.
[2022-08-03] MEDS: TAMSULOSIN 0.4 MG CAP.ER.24H PO SCH (21:25)
[2022-08-04] MEDS: HYDROmorphone 1 MG/ML 1 ML SYRINGE IVP PRN ×2 (00:06→03:06)
[2022-08-04] MEDS: ACETAMINOPHEN TAB 325 MG TAB PO SCH ×5 (00:15→23:38)
[2022-08-04] MEDS: HYDROcodone/APAP 5-325MG 1 EACH TAB PO SCH ×3 (00:15→13:33)
[2022-08-04] MEDS: HYDROcodone/APAP 10-325MG 1 EACH TAB PO SCH ×5 (00:15→23:39)
--- NOTE | 2022-08-04 09:12 | P.PN ---
Subjective Progress Note Date: 08/04/22 Principal diagnosis: 62 yo male POD1 T7-L1 stabilization and fusion with T9-10 phlegmon evacuation and stabiliation for T9-10 Osteomyelitis discitis Patient seen and examined is doing fairly well as morning is sitting up eating breakfast. Our line and central line of been discontinued his Harrison was discontinued yesterday as well he is urinating into a urinal fairly well without any issues. Denies any fevers chills shortness of breath or chest pain at this time. Objective - Vital Signs Vital signs: Vital Signs Temp 98.8 F 08/04/22 03:42 Pulse 104 H 08/04/22 03:42 Resp 18 08/04/22 03:42 BP 100/64 08/04/22 03:42 Pulse Ox 94 L 08/04/22 03:42 FiO2 Intake & Output 08/03/22 08/04/22 08/04/22 18:59 06:59 18:59 Intake Total 890 Output Total 1020 415 510 Balance -130 -415 -510 Intake: IV 150 LR 100 ceFAZolin 2 gm In Sodium 50 Chloride 0.9% 50 ml @ 100 mls/hr IVPB Q8HR [facility] Rx# :[id number] Oral 540 Blood Product 200 Output: Drainage 220 15 Back 220 15 Urine 800 400 510 Other: Voiding Method Indwelling Catheter # Voids 0 ABP, PAP, CO, CI - Last Documented Arterial Blood Pressure 116/52 - Exam Exam repeated no changes Patient is alert and oriented 3 appears well-nourished well-hydrated is in no acute distress. They do not appear septic. There is TTP about the incision site which is CDI at this time Drain in place 50 mL Lower extremities with 4+ out of 5 strength in all major muscle groups post surgical deconditioning, no focal deficits Upper extremities show 4+/5 strength in all major muscle groups. same There is FROM that is painless of the b/l UE and LE in all major joints. They are intact to light touch sensation in C5-T1 and L2 to S1 nerve distribution. DTR 2/4 all upper and lower extremities Patient has palpable dorsalis pedis was posterior tibial pulses. Palpable Rad Ulnar pulses b/l Compartments are soft and compressible. Patient shows a negative Homans Neg babinski Neg clonus Neg hoffmans Cranial nerves II through XII are grossly intact. - Labs CBC & Chem 7: 08/03/22 04:05 08/03/22 14:45 Labs: Abnormal Lab Results - Last 24 Hours (Table) 08/03/22 Range/Units 14:45 Sodium 134 L (137-145) mmol/L Chloride 96 L (98-107) mmol/L Glucose 123 H (74-99) mg/dL Microbiology - Last 24 Hours (Table) 08/02/22 14:00 Gram Stain - Preliminary Other - Other Wound Culture - Preliminary Presumptive Staph aureus 08/02/22 14:00 Gram Stain - Preliminary Other - Other Tissue Culture - Preliminary 08/02/22 14:00 Gram Stain - Preliminary Other - Other Tissue Culture - Preliminary 08/02/22 14:00 Gram Stain - Preliminary Other - Other Wound Culture - Preliminary 08/02/22 14:00 Acid Fast Bacilli Smear - Final Other - Other Acid Fast Bacilli Culture - Preliminary 08/02/22 14:00 Acid Fast Bacilli Smear - Final Other - Other Acid Fast Bacilli Culture - Preliminary Assessment and Plan Assessment: POD2 T7-L1 decompression and stabilization for T9-10 osteodiscitis Plan: -Appreciate hospice consultant and team management. -Activity: Ambulate QID, OOB all meals, up and about, limit lifting bending twisting to less than 5 lbs. Use walker or cane if needed for stability. -Daily PT/OT, increase ambulation strength and balance. -TLSO when up and about for long walks. NO need while in chair or short dist ance -Pain control: Adequate at this time -Meds: reviewed -GI ppx: senna, Miralax -DVT PPX: OK to restart Heparin tonight -Hygiene: Shower today. Maintain dressing clean and dry. Meticulous cleaning after BMs away from incision site -Drains: Maintain for now. Record output -Encourage IS 10x/hr -Dispo: Pending
[2022-08-04] MEDS: LISINOPRIL-HCTZ 20-12.5 MG 1 EACH TAB PO SCH ×2 (10:20→21:09)
[2022-08-04] MEDS: METOPROLOL TARTRATE 25 MG TAB PO SCH ×2 (10:22→20:57)
[2022-08-04] MEDS: GABAPENTIN 300 MG CAP PO SCH ×3 (10:22→20:57)
[2022-08-04] MEDS: CYCLOBENZAPRINE 10 MG TAB PO SCH ×3 (10:22→20:57)
[2022-08-04 12:31] LABS: Basophils # (A) 0.1 k/uL (0-0.2); Basophils % (A) 1 %; Eosinophils # (A) 0.1 k/uL (0-0.7); Eosinophils % (A) 1 %; HCT 27.7 % (39.0-53.0); HGB 9.1 gm/dL (13.0-17.5); Lymphocytes # (A) 0.6 k/uL (1.0-4.8); Lymphocytes % (A) 6 %; MCH 29.4 pg (25.0-35.0); MCHC 32.9 g/dL (31.0-37.0); MCV 89.5 fL (80.0-100.0); Mean Platelet Volume 7.1; Monocytes # (A) 0.7 k/uL (0-1.0); Monocytes % (A) 7 %; Neutrophils % (A) 85 %; Platelet Count 278 k/uL (150-450); RBC 3.09 m/uL (4.30-5.90); RDW 15.4 % (11.5-15.5); WBC 9.5 k/uL (3.8-10.6)
[2022-08-04 12:47] LABS: African American GFR (CKD) >90 (>60 ml/min/1.73 sqM); Anion Gap 8 mmol/L; Blood Urea Nitrogen 16 mg/dL (9-20); Calcium 8.1 mg/dL (8.4-10.2); Carbon Dioxide 30 mmol/L (22-30); Chloride 96 mmol/L (98-107); Glucose 136 mg/dL (74-99); Magnesium 1.7 mg/dL (1.6-2.3); Non-African American GFR(CKD) >90 (>60 ml/min/1.73 sqM); Potassium 3.7 mmol/L (3.5-5.1); Sodium 134 mmol/L (137-145)
--- NOTE | 2022-08-04 15:19 | P.PN ---
Subjective Progress Note Date: 08/04/22 Principal diagnosis: Back pain Apart from severe pain at the surgical site patient has been doing okay. He states that the pain medication works for him. No fevers or chills. No chest pain or shortness of breath. No nausea or vomiting. Objective - Vital Signs Vital signs: Vital Signs Temp 99.7 F H 08/04/22 12:13 Pulse 102 H 08/04/22 12:13 Resp 18 08/04/22 12:13 BP 121/75 08/04/22 12:13 Pulse Ox 95 08/04/22 12:13 FiO2 Intake & Output 08/03/22 08/04/22 08/04/22 18:59 06:59 18:59 Intake Total 890 Output Total 1020 415 525 Balance -130 -415 -525 Intake: IV 150 LR 100 ceFAZolin 2 gm In Sodium 50 Chloride 0.9% 50 ml @ 100 mls/hr IVPB Q8HR [facility] Rx# :[id number] Oral 540 Blood Product 200 Output: Drainage 220 15 15 Back 220 15 15 Urine 800 400 510 Other: Voiding Method Indwelling Catheter Indwelling Catheter # Voids 0 ABP, PAP, CO, CI - Last Documented Arterial Blood Pressure 116/52 - Exam Constitutional: No acute distress, conversant, pleasant Eyes:Anicteric sclerae, moist conjunctiva, no lid-lag, PERRLA, ENMT: Oropharynx clear, no erythema, exudates Neck: Supple, FROM, no masses, or JVD, No carotid bruits, No thyromegaly Lungs: Clear to auscultation, Clear to percussion, Normal respiratory effort, no accessory muscle use Cardiovascular: Heart regular in rate and rhythm, No murmurs, gallops, or rubs, No peripheral edema Abdominal: Soft, Nontender, no guarding, rebound or rigidity, Normoactive bowel sounds, No hepatomegaly, No splenomegaly, No palpable mass Skin: Normal temperature, tone, texture, turgor, no induration, No subcutaneous nodules, No rash, lesions, No ulcers Extremities: No digital cyanosis, No clubbing, Pedal pulses intact and symmetrical, Radial pulses intact and symmetrical, No calf tenderness Psychiatric: Alert and oriented to person, place and time, appropriate affect, intact judgement Neuro: Muscles Strength 5/5 in all 4 extremities, Sensation to light touch grossly present throughout, Cranial nerves II-XII grossly intact, no focal sensory deficits - Labs CBC & Chem 7: 08/04/22 11:57 08/04/22 11:57 Labs: Abnormal Lab Results - Last 24 Hours (Table) 08/03/22 08/04/22 08/04/22 Range/Units 14:45 11:57 11:57 RBC 3.09 L (4.30-5.90) m/uL Hgb 9.1 L (13.0-17.5) gm/dL Hct 27.7 L (39.0-53.0) % Neutrophils # 8.0 H (1.3-7.7) k/uL Lymphocytes # 0.6 L (1.0-4.8) k/uL Sodium 134 L 134 L (137-145) mmol/L Chloride 96 L 96 L (98-107) mmol/L Glucose 123 H 136 H (74-99) mg/dL Calcium 8.1 L (8.4-10.2) mg/dL Microbiology - Last 24 Hours (Table) 08/02/22 14:00 Gram Stain - Preliminary Other - Other Wound Culture - Preliminary Presumptive Staph aureus 08/02/22 14:00 Gram Stain - Preliminary Other - Other Tissue Culture - Preliminary 08/02/22 14:00 Gram Stain - Preliminary Other - Other Tissue Culture - Preliminary 08/02/22 14:00 Gram Stain - Preliminary Other - Other Wound Culture - Preliminary 08/02/22 14:00 Acid Fast Bacilli Smear - Final Other - Other Acid Fast Bacilli Culture - Preliminary 08/02/22 14:00 Acid Fast Bacilli Smear - Final Other - Other Acid Fast Bacilli Culture - Preliminary Assessment and Plan Plan: Acute on chronic back pain T9-T10 osteodiscitis with severe erosive changes He is s/p T7 to L1 stabilization with T9-T10 decompression and evacuation of disc space with antibiotic spacer placement Cultures sent intraoperatively Currently on cefazolin Opiates for pain control ID following HTN Resume bp meds Sinus tachycardia Likely sec to pain, improved. Pain control with opiates Resume lopressor BPH Chronic joint pain. Stable resume meds DVT prophylaxis Lovenox s.q 40mg daily. Weakness PT/OT
[2022-08-04] MEDS: ENOXAPARIN 40 MG/0.4 ML SYRINGE SQ SCH (17:12)
[2022-08-04] MEDS: HYDROmorphone 0.5 MG/0.5 ML SYRINGE IVP PRN (20:57)
[2022-08-04] MEDS: TAMSULOSIN 0.4 MG CAP.ER.24H PO SCH (20:57)
--- NOTE | 2022-08-05 00:56 | P.PN ---
Subjective Progress Note Date: 08/04/22 Principal diagnosis: Discitis/Osteomyelitis thoracic spine Patient is a 62-year-old male who was recently admitted to this hospital and was with the T9-10 discitis with Osteomyelitis with MSSA bacteremia, patient is status post T7 patient underwent stabilization with T9- T10 decompression completed on 08/02/2022 along with wound cultures which are currently pending. On today's evaluation that is 08/04/2022, the patient did have 99.7F this afternoon, the patient back pain is controlled with the current medication, denies having any chest pain shortness of breath or cough no nausea no vomiting and no diarrhea Objective - Vital Signs Vital signs: Vital Signs Temp 99.7 F H 08/04/22 12:13 Pulse 102 H 08/04/22 12:13 Resp 18 08/04/22 12:13 BP 121/75 08/04/22 12:13 Pulse Ox 95 08/04/22 12:13 FiO2 Intake & Output 08/03/22 08/04/22 08/04/22 18:59 06:59 18:59 Intake Total 890 Output Total 1020 415 525 Balance -130 -415 -525 Intake: IV 150 LR 100 ceFAZolin 2 gm In Sodium 50 Chloride 0.9% 50 ml @ 100 mls/hr IVPB Q8HR [facility] Rx# :[id number] Oral 540 Blood Product 200 Output: Drainage 220 15 15 Back 220 15 15 Urine 800 400 510 Other: Voiding Method Indwelling Catheter Indwelling Catheter # Voids 0 ABP, PAP, CO, CI - Last Documented Arterial Blood Pressure 116/52 - Exam GENERAL DESCRIPTION: Middle-age male lying in bed in no distress RESPIRATORY SYSTEM: Unlabored breathing , decreased breath sounds at bases HEART: S1 S2 regular rate and rhythm , ABDOMEN: Soft , no tenderness EXTREMITIES: No edema feet - Labs CBC & Chem 7: 08/04/22 11:57 08/04/22 11:57 Labs: Abnormal Lab Results - Last 24 Hours (Table) 08/04/22 08/04/22 Range/Units 11:57 11:57 RBC 3.09 L (4.30-5.90) m/uL Hgb 9.1 L (13.0-17.5) gm/dL Hct 27.7 L (39.0-53.0) % Neutrophils # 8.0 H (1.3-7.7) k/uL Lymphocytes # 0.6 L (1.0-4.8) k/uL Sodium 134 L (137-145) mmol/L Chloride 96 L (98-107) mmol/L Glucose 136 H (74-99) mg/dL Calcium 8.1 L (8.4-10.2) mg/dL Microbiology - Last 24 Hours (Table) 08/02/22 14:00 Gram Stain - Preliminary Other - Other Wound Culture - Preliminary Presumptive Staph aureus 08/02/22 14:00 Gram Stain - Preliminary Other - Other Tissue Culture - Preliminary 08/02/22 14:00 Gram Stain - Preliminary Other - Other Tissue Culture - Preliminary 08/02/22 14:00 Gram Stain - Preliminary Other - Other Wound Culture - Preliminary 08/02/22 14:00 Acid Fast Bacilli Smear - Final Other - Other Acid Fast Bacilli Culture - Preliminary 08/02/22 14:00 Acid Fast Bacilli Smear - Final Other - Other Acid Fast Bacilli Culture - Preliminary Assessment and Plan (1) Discitis thoracic region Current Visit: No Status: Acute Code(s): M46.44 - DISCITIS, UNSPECIFIED, THORACIC REGION SNOMED Code(s): 263859711 Plan: 1-Patient with a T910 discitis in this patient seem to have failed medical therapy in this patient status post T7-L1 stabilization and decompression and all cultures which are currently pending, will need to call for the MRSA to be the likely pathogen that was grown from the blood culture last admission, the patient is growing MSSA from one of the sample taken in OR 2we will continue the patient on cefazolin 2 g every 8 hours and plan to continue with IV cefazolin on discharge Time with Patient: Less than 30
[2022-08-05] MEDS: ACETAMINOPHEN TAB 325 MG TAB PO SCH ×4 (05:01→23:10)
[2022-08-05] MEDS: HYDROcodone/APAP 10-325MG 1 EACH TAB PO SCH ×4 (05:01→23:10)
[2022-08-05] MEDS: CYCLOBENZAPRINE 10 MG TAB PO SCH ×3 (09:00→23:10)
[2022-08-05] MEDS: GABAPENTIN 300 MG CAP PO SCH ×3 (09:00→23:10)
[2022-08-05] MEDS: LISINOPRIL-HCTZ 20-12.5 MG 1 EACH TAB PO SCH ×2 (09:04→21:11)
[2022-08-05] MEDS: METOPROLOL TARTRATE 25 MG TAB PO SCH ×2 (09:04→21:11)
--- NOTE | 2022-08-05 09:22 | P.PN ---
Subjective Progress Note Date: 08/05/22 Principal diagnosis: 62 yo male POD1 T7-L1 stabilization and fusion with T9-10 phlegmon evacuation and stabiliation for T9-10 Osteomyelitis discitis Pt s/e no issues overnight. Pain controlled. Was up in chair and walked in room. Harrison is out. He states no bowel bladder issues. States some pain in back this AM but otherwise doing well. Wants to shower today which is OK. Denies any f/c/sob/cp. Objective - Vital Signs Vital signs: Vital Signs Temp 98.3 F 08/05/22 04:42 Pulse 90 08/05/22 08:00 Resp 17 08/05/22 04:42 BP 110/72 08/05/22 08:00 Pulse Ox 93 L 08/05/22 04:42 FiO2 Intake & Output 08/04/22 08/05/22 08/05/22 18:59 06:59 18:59 Intake Total 360 Output Total 1825 800 552 Balance -6685 -800 -002 Intake: Oral 360 Output: Drainage 15 300 Back 15 300 Urine 1810 500 551 Stool 1 Other: Voiding Method Indwelling Catheter Urinal ABP, PAP, CO, CI - Last Documented Arterial Blood Pressure 116/52 - Exam Dressing to be changed today. Drain 300 cc since yesterday, will keep for now. All other exam stable. Patient is alert and oriented 3 appears well-nourished well-hydrated is in no acute distress. They do not appear septic. There is TTP about the incision site which is CDI at this time Drain in place 300 Lower extremities with 4+ out of 5 strength in all major muscle groups post surgical deconditioning, no focal deficits Upper extremities show 4+/5 strength in all major muscle groups. same There is FROM that is painless of the b/l UE and LE in all major joints. They are intact to light touch sensation in C5-T1 and L2 to S1 nerve distribution. DTR 2/4 all upper and lower extremities Patient has palpable dorsalis pedis was posterior tibial pulses. Palpable Rad Ulnar pulses b/l Compartments are soft and compressible. Patient shows a negative Homans Neg babinski Neg clonus Neg hoffmans Cranial nerves II through XII are grossly intact. - Labs CBC & Chem 7: 08/04/22 11:57 08/04/22 11:57 Labs: Abnormal Lab Results - Last 24 Hours (Table) 08/04/22 08/04/22 Range/Units 11:57 11:57 RBC 3.09 L (4.30-5.90) m/uL Hgb 9.1 L (13.0-17.5) gm/dL Hct 27.7 L (39.0-53.0) % Neutrophils # 8.0 H (1.3-7.7) k/uL Lymphocytes # 0.6 L (1.0-4.8) k/uL Sodium 134 L (137-145) mmol/L Chloride 96 L (98-107) mmol/L Glucose 136 H (74-99) mg/dL Calcium 8.1 L (8.4-10.2) mg/dL Microbiology - Last 24 Hours (Table) 08/02/22 14:00 Gram Stain - Final Other - Other Wound Culture - Final Staphylococcus aureus 08/02/22 14:00 Gram Stain - Preliminary Other - Other Tissue Culture - Preliminary 08/02/22 14:00 Gram Stain - Final Other - Other Wound Culture - Final 08/02/22 14:00 Gram Stain - Preliminary Other - Other Tissue Culture - Preliminary Assessment and Plan Assessment: POD3 T7-L1 decompression and stabilization for T9-10 osteodiscitis Plan: -Appreciate education sales consultant and team management. -Activity: Ambulate QID, OOB all meals, up and about, limit lifting bending twisting to less than 5 lbs. Use walker or cane if needed for stability. -Daily PT/OT, increase ambulation strength and balance. -TLSO when up and about for long walks. NO need while in chair or short distance -Pain control: Adequate at this time -Meds: reviewed -GI ppx: senna, Miralax -DVT PPX: OK to restart Heparin tonight -Hygiene: Shower today. Maintain dressing clean and dry. Meticulous cleaning after BMs away from incision site -Drains: Maintain for now. Record output -Change dressing after shower. -Encourage IS 10x/hr -Hospital bed for home for help with transitions and sleeping at 45 degree angle -Home healthcare for help when he gets home as he just has his at home. -Dispo: Pending
--- NOTE | 2022-08-05 11:21 | P.PN ---
Subjective Progress Note Date: 08/05/22 Principal diagnosis: Back pain Pain controlled. Was up in chair and walked in room. Harrison is out. Was seen by ortho today, cleared to shower today. No chest pain, sob, fever. Objective - Vital Signs Vital signs: Vital Signs Temp 98.3 F 08/05/22 04:42 Pulse 65 08/05/22 08:15 Resp 17 08/05/22 08:15 BP 110/72 08/05/22 08:00 Pulse Ox 93 L 08/05/22 04:42 FiO2 Intake & Output 08/04/22 08/05/22 08/05/22 18:59 06:59 18:59 Intake Total 360 Output Total 7763 907 553 Balance -6923 -101 -655 Intake: Oral 360 Output: Drainage 15 300 Back 15 300 Urine 1810 500 551 Stool 2 Other: Voiding Method Indwelling Catheter Urinal Urinal ABP, PAP, CO, CI - Last Documented Arterial Blood Pressure 116/52 - Exam Constitutional: No acute distress, conversant, pleasant Eyes:Anicteric sclerae, moist conjunctiva, no lid-lag, PERRLA, ENMT: Oropharynx clear, no erythema, exudates Neck: Supple, FROM, no masses, or JVD, No carotid bruits, No thyromegaly Lungs: Clear to auscultation, Clear to percussion, Normal respiratory effort, no accessory muscle use Cardiovascular: Heart regular in rate and rhythm, No murmurs, gallops, or rubs, No peripheral edema Abdominal: Soft, Nontender, no guarding, rebound or rigidity, Normoactive bowel sounds, No hepatomegaly, No splenomegaly, No palpable mass Skin: Normal temperature, tone, texture, turgor, no induration, No subcutaneous nodules, No rash, lesions, No ulcers Extremities: No digital cyanosis, No clubbing, Pedal pulses intact and sym metrical, Radial pulses intact and symmetrical, No calf tenderness Psychiatric: Alert and oriented to person, place and time, appropriate affect, intact judgement Neuro: Muscles Strength 5/5 in all 4 extremities, Sensation to light touch grossly present throughout, Cranial nerves II-XII grossly intact, no focal sensory deficits - Labs CBC & Chem 7: 08/04/22 11:57 08/04/22 11:57 Labs: Abnormal Lab Results - Last 24 Hours (Table) 08/04/22 08/04/22 Range/Units 11:57 11:57 RBC 3.09 L (4.30-5.90) m/uL Hgb 9.1 L (13.0-17.5) gm/dL Hct 27.7 L (39.0-53.0) % Neutrophils # 8.0 H (1.3-7.7) k/uL Lymphocytes # 0.6 L (1.0-4.8) k/uL Sodium 134 L (137-145) mmol/L Chloride 96 L (98-107) mmol/L Glucose 136 H (74-99) mg/dL Calcium 8.1 L (8.4-10.2) mg/dL Microbiology - Last 24 Hours (Table) 08/02/22 14:00 Gram Stain - Final Other - Other Wound Culture - Final Staphylococcus aureus 08/02/22 14:00 Gram Stain - Preliminary Other - Other Tissue Culture - Preliminary 08/02/22 14:00 Gram Stain - Final Other - Other Wound Culture - Final 08/02/22 14:00 Gram Stain - Preliminary Other - Other Tissue Culture - Preliminary Assessment and Plan Plan: Acute on chronic back pain T9-T10 osteodiscitis with severe erosive changes He is s/p T7 to L1 stabilization with T9-T10 decompression and evacuation of disc space with antibiotic spacer placement Cultures sent intraoperatively Currently on cefazolin Opiates for pain control ID following HTN Resume bp meds Sinus tachycardia Likely sec to pain, improved. Pain control with opiates Resume lopressor BPH Chronic joint pain. Stable resume meds DVT prophylaxis Lovenox s.q 40mg daily. Weakness PT/OT
[2022-08-05 11:38] LABS: Basophils # (A) 0.09 X 10*3/uL (0.00-0.10); Eosinophils # (A) 0.15 X 10*3/uL (0.04-0.35); Eosinophils % (A) 1.6 %; HCT 24.9 % (39.6-50.0); HGB 8.3 g/dL (13.0-17.0); Immature Grans, Automated 0.6 %; Lymphocytes # (A) 0.97 X 10*3/uL (0.90-5.00); Lymphocytes % (A) 10.4 %; MCH 29.7 pg (27.0-32.0); MCHC 33.3 g/dL (32.0-37.0); MCV 89.2 fL (80.0-97.0); Mean Platelet Volume 9.4 fL (9.5-12.2); Monocytes # (A) 0.98 X 10*3/uL (0.20-1.00); Monocytes % (A) 10.5 %; NRBC Per 100 WBC 0 /100 WBCS (0.0-0.0); Neutrophils # (A) 7.07 X 10*3/uL (1.80-7.70); Neutrophils % (A) 75.9 %; Platelet Count 274 X 10*3/uL (140-440); RBC 2.79 X 10*6/uL (4.40-5.60); RDW 15.2 % (11.5-14.5); WBC 9.32 X 10*3/uL (4.50-10.00)
[2022-08-05 11:46] LABS: African American GFR (CKD) 107.9 (60.0-200.0); Anion Gap 9.8 mmol/L (10.00-18.00); BUN/Creat Ratio 16.15 Ratio (12.00-20.00); Blood Urea Nitrogen 13.6 mg/dL (9.0-27.0); C Reactive Protein 18.9 mg/dL (0.00-0.80); Calcium 8.4 mg/dL (8.7-10.3); Carbon Dioxide 29.2 mmol/L (20.0-27.5); Non-African American GFR(CKD) 93.1 (60.0-200.0); Potassium 3.9 mmol/L (3.5-5.5)
[2022-08-05 13:25] LABS: Erythrocyte Sedimentation Rate 36 mm/Hr (0-20)
[2022-08-05] MEDS: ENOXAPARIN 40 MG/0.4 ML SYRINGE SQ SCH (17:04)
[2022-08-05] MEDS: TAMSULOSIN 0.4 MG CAP.ER.24H PO SCH (21:11)
[2022-08-05] MEDS: HYDROmorphone 0.5 MG/0.5 ML SYRINGE IVP PRN (23:16)
[2022-08-06] MEDS: ACETAMINOPHEN TAB 325 MG TAB PO SCH ×4 (05:38→23:17)
[2022-08-06] MEDS: HYDROcodone/APAP 10-325MG 1 EACH TAB PO SCH ×4 (05:39→23:17)
[2022-08-06] MEDS: METOPROLOL TARTRATE 25 MG TAB PO SCH ×2 (08:27→20:16)
[2022-08-06] MEDS: CYCLOBENZAPRINE 10 MG TAB PO SCH ×3 (08:27→23:17)
[2022-08-06] MEDS: GABAPENTIN 300 MG CAP PO SCH ×3 (08:27→23:17)
[2022-08-06] MEDS: LISINOPRIL-HCTZ 20-12.5 MG 1 EACH TAB PO SCH ×2 (08:27→20:16)
--- NOTE | 2022-08-06 08:39 | P.PN ---
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 Patient was resting in bed. He currently denies pain and states that pain is managed on current regimen. Surgical dressing intact, Hemovac present with 65 mL emptied. Drain is intact and patent. Drain will be discontinued later today with surgical dressing change. Overall patient is stating that he is feeling much better since surgical procedure. He denies any numbness tingling to bilateral lower extremities. Patient did shower yesterday and has been ambulating within room with walker. He denies f/c/sob/cp. Objective - Vital Signs Vital signs: Vital Signs Temp 98.2 F 08/06/22 05:00 Pulse 90 08/06/22 05:00 Resp 18 08/06/22 05:00 BP 100/68 08/06/22 05:00 Pulse Ox 98 08/06/22 05:00 FiO2 Intake & Output 08/05/22 08/06/22 08/06/22 18:59 06:59 18:59 Intake Total 500 770 Output Total 673 785 Balance -173 -15 Intake: Intake, IV Titration 50 Amount ceFAZolin 2 gm In Sodium 50 Chloride 0.9% 50 ml @ 100 mls/hr IVPB Q8HR [facility] Rx# :[id number] Oral 720 Tube Feeding 500 Output: Drainage 120 35 Back 120 35 Urine 551 750 Stool 2 Other: Voiding Method Urinal Toilet Urinal ABP, PAP, CO, CI - Last Documented Arterial Blood Pressure 116/52 - Exam Physical Examination General: The patient is awake and alert, in no acute distress Skin: Skin is warm and dry with no obvious rashes or lesions. Hairy patches absent, no dorsal skin dimples, no cafe au lait spots. Surgical Incision thoracic and lumbar region. Hemovac intact and patent. Eye: Pupils are equal, round and reactive to light, extra-ocular movements are intact; there is normal conjunctiva bilaterally. Neck: The neck is supple, there is no tenderness and ROM intact. Cardiovascular: There is a regular rate and rhythm. No murmur, rub or gallop is appreciated. Respiratory: Lungs are clear to auscultation, respirations are non-labored, breath sounds are equal. Gastrointestinal: Soft, non-distended, non-tender abdomen . Back: There is no tenderness to palpation in the midline, paralumbar, parathoracic or buttocks region. There is no obvious deformity . Musculoskeletal: ROM limited secondary to pain and stiffness from surgical procedure. Shoulder abduction 5/5, elbow flexors 5/5, wrist dorsiflexors 5/5. finger abductor 5/5, keg header 5/5, hip flexor 5/5, knee flexor 5/5, ankle dorsiflexor 5/5, ankle plantarflexion 5/5 and extensor hallucis 5/5. Neurological: CN 2-12 intact. There are no obvious motor or sensory deficits. M ovement and coordination equal and intact. Sensory exam to light touch intact C5-T1 and intact from L2-S1. Reflexes 2/4 in bilateral upper and lower extremities. Negative Hoffmans, babinski, and clonus signs. Psychiatric: Cooperative, appropriate mood & affect, normal judgment. - Labs CBC & Chem 7: 08/05/22 07:26 08/05/22 07:26 Labs: Abnormal Lab Results - Last 24 Hours (Table) 08/05/22 08/05/22 Range/Units 07:26 07:26 RBC 2.79 L (4.40-5.60) X 10*6/uL Hgb 8.3 L (13.0-17.0) g/dL Hct 24.9 L (39.6-50.0) % RDW 15.2 H (11.5-14.5) % MPV 9.4 L (9.5-12.2) fL Immature Gran # 0.06 H (0.00-0.04) X 10*3/uL ESR 36 H (0-20) mm/Hr Carbon Dioxide 29.2 H (20.0-27.5) mmol/L Anion Gap 9.80 L (10.00-18.00) mmol/L Glucose 122 H (70-110) mg/dL Calcium 8.4 L (8.7-10.3) mg/dL C-Reactive Protein 18.90 H (0.00-0.80) mg/dL Microbiology - Last 24 Hours (Table) 08/02/22 14:00 Gram Stain - Preliminary Other - Other Tissue Culture - Preliminary Presumptive Staph aureus 08/02/22 14:00 Gram Stain - Preliminary Other - Other Tissue Culture - Preliminary Assessment and Plan Assessment: POD 4: T7-L1 stabilization and fusion with T9-[address]iliation Plan: Plan: -Appreciate case consultant and team management. -Activity: Ambulate QID, OOB all meals, up and about, limit lifting bending twisting to less than 5 lbs. Use walker or cane if needed for stability. -Daily PT/OT, increase ambulation strength and balance. -Brace when up and about, not needed in bed or chair -Pain control: Adequate at this time -Meds: reviewed -GI ppx: senna, Miralax -DVT PPX: Heparin -Hygiene: Shower today. Maintain dressing clean and dry. Meticulous cleaning after BMs away from the incision site -Drains: DC later today and change surgical dressing -Encourage IS 10x/hr -Dispo: Anticipate discharge home tomorrow with homecare *I reviewed and discussed this case with my attending Dr. Arce, whom has reviewed this chart and films and is in agreement with assessment and plan of care as outlined above. I have personally seen and examined the patient, performed the documentation and the assessment and plan as written. Number of minutes spent on the visit: 20m.
--- NOTE | 2022-08-06 11:45 | P.PN ---
Subjective Progress Note Date: 08/05/22 Principal diagnosis: Discitis/Osteomyelitis thoracic spine Patient is a 62-year-old male who was recently admitted to this hospital and was with the T9-10 discitis with Osteomyelitis with MSSA bacteremia, patient is status post T7 patient underwent stabilization with T9- T10 decompression completed on 08/02/2022 along with wound cultures which are currently pending. On today's evaluation that is 08/05/2022, the patient is afebrile, the patient back pain is controlled with the current medication, the patient denies having any chest pain shortness of breath or cough no nausea no vomiting and no diarrhea with antibiotic therapy Objective - Vital Signs Vital signs: Vital Signs Temp 98.9 F 08/05/22 11:17 Pulse 106 H 08/05/22 11:17 Resp 17 08/05/22 11:17 BP 100/64 08/05/22 11:17 Pulse Ox 97 08/05/22 11:17 FiO2 Intake & Output 08/04/22 08/05/22 08/05/22 18:59 06:59 18:59 Intake Total 360 Output Total 8311 203 028 Balance -7831 -771 -770 Intake: Oral 360 Output: Drainage 15 300 90 Back 15 300 90 Urine 1810 500 551 Stool 2 Other: Voiding Method Indwelling Catheter Urinal Urinal ABP, PAP, CO, CI - Last Documented Arterial Blood Pressure 116/52 - Exam GENERAL DESCRIPTION: Middle-age male lying in bed in no distress RESPIRATORY SYSTEM: Unlabored breathing , decreased breath sounds at bases HEART: S1 S2 regular rate and rhythm , ABDOMEN: Soft , no tenderness EXTREMITIES: No edema feet - Labs CBC & Chem 7: 08/05/22 07:26 08/05/22 07:26 Labs: Abnormal Lab Results - Last 24 Hours (Table) 08/05/22 08/05/22 Range/Units 07:26 07:26 RBC 2.79 L (4.40-5.60) X 10*6/uL Hgb 8.3 L (13.0-17.0) g/dL Hct 24.9 L (39.6-50.0) % RDW 15.2 H (11.5-14.5) % MPV 9.4 L (9.5-12.2) fL Immature Gran # 0.06 H (0.00-0.04) X 10*3/uL ESR 36 H (0-20) mm/Hr Carbon Dioxide 29.2 H (20.0-27.5) mmol/L Anion Gap 9.80 L (10.00-18.00) mmol/L Glucose 122 H (70-110) mg/dL Calcium 8.4 L (8.7-10.3) mg/dL C-Reactive Protein 18.90 H (0.00-0.80) mg/dL Microbiology - Last 24 Hours (Table) 08/02/22 14:00 Gram Stain - Final Other - Other Wound Culture - Final Staphylococcus aureus 08/02/22 14:00 Gram Stain - Preliminary Other - Other Tissue Culture - Preliminary 08/02/22 14:00 Gram Stain - Final Other - Other Wound Culture - Final 08/02/22 14:00 Gram Stain - Preliminary Other - Other Tissue Culture - Preliminary Assessment and Plan (1) Discitis thoracic region Current Visit: No Status: Acute Code(s): M46.44 - DISCITIS, UNSPECIFIED, THORACIC REGION SNOMED Code(s): 737124844 Plan: 1-Patient with a T910 discitis in this patient seem to have failed medical therapy in this patient status post T7-L1 stabilization and decompression and all cultures which are currently pending, will need to call for the MRSA to be the likely pathogen that was grown from the blood culture last admission, the patient is growing MSSA from one of the sample taken in OR 2patient had shown clinical improvement and will continue on cefazolin 2 g every 8 hours and plan to continue with IV cefazolin on discharge Time with Patient: Less than 30
--- NOTE | 2022-08-06 11:46 | P.PN ---
Subjective Progress Note Date: 08/06/22 Principal diagnosis: Discitis/Osteomyelitis thoracic spine Patient is a 62-year-old male who was recently admitted to this hospital and was with the T9-10 discitis with Osteomyelitis with MSSA bacteremia, patient is status post T7 patient underwent stabilization with T9- T10 decompression completed on 08/02/2022 along with wound cultures which are currently pending. On today's evaluation that is 08/06/2022, the patient denies any fever or chills, the patient is feeling slightly better today the patient back pain is currently controlled denies any chest pain shortness of breath or cough no abdominal pain or diarrhea Objective - Vital Signs Vital signs: Vital Signs Temp 98.2 F 08/06/22 05:00 Pulse 90 08/06/22 05:00 Resp 18 08/06/22 05:00 BP 100/68 08/06/22 05:00 Pulse Ox 98 08/06/22 05:00 FiO2 Intake & Output 08/05/22 08/06/22 08/06/22 18:59 06:59 18:59 Intake Total 500 770 Output Total 673 785 Balance -173 -15 Intake: Intake, IV Titration 50 Amount ceFAZolin 2 gm In Sodium 50 Chloride 0.9% 50 ml @ 100 mls/hr IVPB Q8HR [facility] Rx# :[id number] Oral 720 Tube Feeding 500 Output: Drainage 120 35 Back 120 35 Urine 551 750 Stool 2 Other: Voiding Method Urinal Toilet Toilet Urinal Urinal ABP, PAP, CO, CI - Last Documented Arterial Blood Pressure 116/52 - Exam GENERAL DESCRIPTION: Middle-age male lying in bed in no distress RESPIRATORY SYSTEM: Unlabored breathing , decreased breath sounds at bases HEART: S1 S2 regular rate and rhythm , ABDOMEN: Soft , no tenderness EXTREMITIES: No edema feet - Labs CBC & Chem 7: 08/05/22 07:26 08/05/22 07:26 Labs: Abnormal Lab Results - Last 24 Hours (Table) 08/05/22 08/05/22 Range/Units 07:26 07:26 ESR 36 H (0-20) mm/Hr Carbon Dioxide 29.2 H (20.0-27.5) mmol/L Anion Gap 9.80 L (10.00-18.00) mmol/L Glucose 122 H (70-110) mg/dL Calcium 8.4 L (8.7-10.3) mg/dL C-Reactive Protein 18.90 H (0.00-0.80) mg/dL Microbiology - Last 24 Hours (Table) 08/02/22 14:00 Gram Stain - Preliminary Other - Other Tissue Culture - Preliminary Presumptive Staph aureus 08/02/22 14:00 Gram Stain - Preliminary Other - Other Tissue Culture - Preliminary Assessment and Plan (1) Discitis thoracic region Current Visit: No Status: Acute Code(s): M46.44 - DISCITIS, UNSPECIFIED, THORACIC REGION SNOMED Code(s): 779648117 Plan: 1-Patient with a T910 discitis in this patient seem to have failed medical therapy in this patient status post T7-L1 stabilization and decompression and a ll cultures which are currently pending, will need to call for the MRSA to be the likely pathogen that was grown from the blood culture last admission, the patient is growing MSSA from one of the sample taken in OR 2patient had shown clinical improvement and will continue on cefazolin 2 g every 8 hours, plan is for 6 week course of IV cefazolin 2 g every 8 hours the patient only has a PICC and close outpatient follow-up Time with Patient: Less than 30
--- NOTE | 2022-08-06 15:20 | P.PN ---
Subjective Progress Note Date: 08/06/22 Principal diagnosis: back pain Subjective: Patient seen and examined at bedside. No acute events overnight. He claims that his back pain is much improved after the surgery. He was able to ambulate with assistance. He denies any chest pain, shortness of breath, abdominal pain, urinary or bowel complaints. Patient will likely be discharged tomorrow per ort hopedics. Pertinent positives and negatives as discussed above, a complete review of systems was performed and all other systems are negative. Vitals Signs Reviewed. General: nontoxic, no distress, appears at stated age Derm: warm, dry, left arm PICC line Head: atraumatic, normocephalic, symmetric Eyes: EOMI, no lid lag, anicteric sclera Mouth: no lip lesion, mucus membranes moist Cardiovascular: S1S2 reg, no murmur Lungs: CTA bilateral, no rhonchi, no rales , no accessory muscle use Abdominal: soft, nontender to palpation, no guarding, no appreciable organomegaly Ext: no gross muscle atrophy, no edema, no contractures, patient is in a brace Neuro: CN II-XI grossly intact, no focal neuro deficits Psych: Alert, oriented, appropriate affect Assessment and Plan: Acute on chronic back pain T9-T 10 osteomelitis/discitis with severe erosive changes - Status post T7- L1 stabilization with T9 to T10 decompression and evacuation of disc space with antibiotic spacer placement - On IV cefazolin - will require prolonged course at home, PICC line already in place -Intra-Op cultures growing MSSA -Continue pain control per surgery -Infectious disease following Hypertension- resumed home medications Sinus tachycardia -Likely in the setting of pain -Continue home metoprolol BPH Chronic joint pains -Stable on home medications Weakness -PT/OT F: Oral E: Replete as needed N: Heart healthy A: As tolerated DVT ppx: Lovenox Code status: Full code Anticipated discharge place: Home Anticipated discharge time: Likely tomorrow Objective - Vital Signs Vital signs: Vital Signs Temp 98.6 F 08/06/22 11:25 Pulse 105 H 08/06/22 11:25 Resp 18 08/06/22 11:25 BP 112/73 08/06/22 11:25 Pulse Ox 96 08/06/22 11:25 FiO2 Intake & Output 08/05/22 08/06/22 08/06/22 18:59 06:59 18:59 Intake Total 500 770 Output Total 673 785 Balance -173 -15 Intake: Intake, IV Titration 50 Amount ceFAZolin 2 gm In Sodium 50 Chloride 0.9% 50 ml @ 100 mls/hr IVPB Q8HR [facility] Rx# :[id number] Oral 720 Tube Feeding 500 Output: Drainage 120 35 Back 120 35 Urine 551 750 Stool 2 Other: Voiding Method Urinal Toilet Toilet Urinal Urinal ABP, PAP, CO, CI - Last Documented Arterial Blood Pressure 116/52 - Labs CBC & Chem 7: 08/05/22 07:26 08/05/22 07:26 Labs: Microbiology - Last 24 Hours (Table) 08/02/22 14:00 Gram Stain - Preliminary Other - Other Tissue Culture - Preliminary Presumptive Staph aureus 08/02/22 14:00 Gram Stain - Preliminary Other - Other Tissue Culture - Preliminary
[2022-08-06] MEDS: ENOXAPARIN 40 MG/0.4 ML SYRINGE SQ SCH (17:14)
[2022-08-06] MEDS: TAMSULOSIN 0.4 MG CAP.ER.24H PO SCH (20:16)
[2022-08-06] MEDS: HYDROmorphone 0.5 MG/0.5 ML SYRINGE IVP PRN (23:16)
[2022-08-07] MEDS: ACETAMINOPHEN TAB 325 MG TAB PO SCH ×2 (05:28→12:50)
[2022-08-07] MEDS: HYDROcodone/APAP 10-325MG 1 EACH TAB PO SCH ×2 (05:29→12:51)
--- NOTE | 2022-08-07 07:16 | P.PN ---
Subjective Progress Note Date: 08/07/22 Principal diagnosis: 62 yo male POD1 T7-L1 stabilization and fusion with T9-10 phlegmon evacuation and stabiliation for T9-10 Osteomyelitis discitis patient seen and examined well. Pain is well-controlled and about. He is voiding appropriately and passing gas she has had a small bowel movement. He states he is doing fairly well and thinks he could potentially go home. We are waiting on his at-home hospital bed which is needed because the patient Positioned himself on his own without the help of the benefits and in his condition precludes him from doing this And the hospital bed with assist him in doing this. Objective - Vital Signs Vital signs: Vital Signs Temp 98.2 F 08/07/22 04:18 Pulse 89 08/07/22 04:18 Resp 18 08/07/22 04:18 BP 105/69 08/07/22 04:18 Pulse Ox 99 08/07/22 04:18 FiO2 Intake & Output 08/06/22 08/07/22 08/07/22 18:59 06:59 18:59 Intake Total 100 890 Output Total 680 Balance 100 210 Intake: Intake, IV Titration 100 50 Amount ceFAZolin 2 gm In Sodium 100 50 Chloride 0.9% 50 ml @ 100 mls/hr IVPB Q8HR [facility] Rx# :[id number] Oral 840 Output: Urine 680 Other: Voiding Method Toilet Toilet Urinal Urinal ABP, PAP, CO, CI - Last Documented Arterial Blood Pressure 116/52 - Exam exam repeated today no changes Patient is alert and oriented 3 appears well-nourished well-hydrated is in no acute distress. They do not appear septic. There is mild TTP about the incision site which is CDI at this time Lower extremities with 4+ out of 5 strength in all major muscle groups post surgical deconditioning, no focal deficits Upper extremities show 4+/5 strength in all major muscle groups. same There is FROM that is painless of the b/l UE and LE in all major joints. They are intact to light touch sensation in C5-T1 and L2 to S1 nerve distribution. DTR 2/4 all upper and lower extremities Patient has palpable dorsalis pedis was posterior tibial pulses. Palpable Rad Ulnar pulses b/l Compartments are soft and compressible. Patient shows a negative Homans Neg babinski Neg clonus Neg hoffmans Cranial nerves II through XII are grossly intact. - Labs CBC & Chem 7: 08/05/22 07:26 08/05/22 07:26 Labs: Microbiology - Last 24 Hours (Table) 08/02/22 14:00 Gram Stain - Final Other - Other Tissue Culture - Final Staphylococcus aureus 08/02/22 14:00 Anaerobic Culture - Final Other - Other 08/02/22 14:00 Anaerobic Culture - Final Other - Other 08/02/22 14:00 Anaerobic Culture - Final Other - Other 08/02/22 14:00 Anaerobic Culture - Final Other - Other 08/02/22 14:00 Gram Stain - Final Other - Other Tissue Culture - Final Assessment and Plan Assessment: POD5 T7-L1 decompression and stabilization for T9-10 osteodiscitis Plan: -Appreciate enterprise resource planning consultant and team management. -Activity: Ambulate QID, OOB all meals, up and about, limit lifting bending twisting to less than 5 lbs. Use walker or cane if needed for stability. -Daily PT/OT, increase ambulation strength and balance. -TLSO when up and about for long walks. NO need while in chair or short dista nce -Pain control: Adequate at this time -Meds: reviewed -GI ppx: senna, Miralax -DVT PPX: OK to restart Heparin tonight -Hygiene: Shower today. Maintain dressing clean and dry. Meticulous cleaning after BMs away from incision site -Change dressing after shower. -Encourage IS 10x/hr -Hospital bed for home for help with transitions and sleeping at 45 degree angle -Home healthcare for help when he gets home as he just has his at home. -Dispo: stable for discharge home
--- NOTE | 2022-08-07 07:48 | P.PN ---
Progress Note - Text Progress Note Date: 08/07/22 Patient seen and examined at bedside. Discharge planning reviewed and discussed. Patient is requiring a hospital bed at home due to the stabilization of his thoracic spine, which requires positioning of the body in ways not feasible with an ordinary bed. The head of the bed must be elevated at more than 30 most of the time to alleviate pain/or pressure. Prescription for hospital bed was provided to case management.
[2022-08-07] MEDS: GABAPENTIN 300 MG CAP PO SCH ×2 (09:33→15:54)
[2022-08-07] MEDS: CYCLOBENZAPRINE 10 MG TAB PO SCH ×2 (09:33→15:54)
[2022-08-07] MEDS: LISINOPRIL-HCTZ 20-12.5 MG 1 EACH TAB PO SCH (09:34)
[2022-08-07] MEDS: METOPROLOL TARTRATE 25 MG TAB PO SCH (09:34)
[2022-08-07 12:52] VITALS: BP 122/78; PULSE 96; RESP 17; TEMP 99.1
--- NOTE | 2022-08-07 13:48 | P.PN ---
Subjective Progress Note Date: 08/07/22 Principal diagnosis: back pain Subjective: Patient seen and examined at bedside. No acute events overnight. His back pain is improving. He is able to ambulate with minimal assistance. He denies any chest pain, shortness of breath, abdominal pain, urinary or bowel complaints. Pertinent positives and negatives as discussed above, a complete review of carlotta kearns was performed and all other systems are negative. Vitals Signs Reviewed. General: nontoxic, no distress, appears at stated age Derm: warm, dry, left arm PICC line, dressing on the back appears intact with no surrounding erythema or drainage Head: atraumatic, normocephalic, symmetric Eyes: EOMI, no lid lag, anicteric sclera Mouth: no lip lesion, mucus membranes moist Cardiovascular: S1S2 reg, no murmur Lungs: CTA bilateral, no rhonchi, no rales , no accessory muscle use Abdominal: soft, nontender to palpation, no guarding, no appreciable organomegaly Ext: no gross muscle atrophy, no edema, no contractures, Neuro: CN II-XI grossly intact, no focal neuro deficits Psych: Alert, oriented, appropriate affect Assessment and Plan: Acute on chronic back pain T9-T 10 osteomelitis/discitis with severe erosive changes - Status post T7- L1 stabilization with T9 to T10 decompression and evacuation of disc space with antibiotic spacer placement - On IV cefazolin - will require 6 weeks per ID, PICC line already in place -Intra-Op cultures growing MSSA -Continue pain control per surgery -Infectious disease following Hypertension- resumed home medications Sinus tachycardia -Likely in the setting of pain -Continue home metoprolol BPH Chronic joint pains -Stable on home medications Weakness -PT/OT F: Oral E: Replete as needed N: Heart healthy A: As tolerated DVT ppx: Lovenox Code status: Full code Patient is stable from medicine stand point, ready for discharge, Objective - Vital Signs Vital signs: Vital Signs Temp 99.1 F 08/07/22 12:38 Pulse 96 08/07/22 12:38 Resp 17 08/07/22 12:38 BP 122/78 08/07/22 12:38 Pulse Ox 97 08/07/22 12:38 FiO2 Intake & Output 08/06/22 08/07/22 08/07/22 18:59 06:59 18:59 Intake Total 100 890 Output Total 680 1 Balance 100 210 -1 Intake: Intake, IV Titration 100 50 Amount ceFAZolin 2 gm In Sodium 100 50 Chloride 0.9% 50 ml @ 100 mls/hr IVPB Q8HR [facility] Rx# :[id number] Oral 840 Output: Urine 680 Stool 1 Other: Voiding Method Toilet Toilet Toilet Urinal Urinal Urinal ABP, PAP, CO, CI - Last Documented Arterial Blood Pressure 116/52 - Labs CBC & Chem 7: 08/05/22 07:26 08/05/22 07:26 Labs: Microbiology - Last 24 Hours (Table) 08/02/22 14:00 Gram Stain - Final Other - Other Tissue Culture - Final Staphylococcus aureus 08/02/22 14:00 Anaerobic Culture - Final Other - Other 08/02/22 14:00 Anaerobic Culture - Final Other - Other 08/02/22 14:00 Anaerobic Culture - Final Other - Other 08/02/22 14:00 Anaerobic Culture - Final Other - Other 08/02/22 14:00 Gram Stain - Final Other - Other Tissue Culture - Final
--- NOTE | 2022-08-07 15:04 | P.DS ---
Providers Date of admission: 08/02/22 06:05 Expected date of discharge: 08/07/22 Attending physician: Ash Arce DO Consults: 08/02/22 13:30 Consult Physician Routine Consulting Provider: Billie Healy Consult Reason/Comments: Medical Management s/p T7 to L1 stabilization with T9-T10 decompression a Do you want consulting provider notified?: Yes 08/02/22 17:56 Consult Physician Routine Consulting Provider: Zulma Mas Consult Reason/Comments: discitis Do you want consulting provider notified?: Yes Primary care physician: 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 They underwent appropriate preoperative care and were willing to undergo the intended procedure. They underwent a successful T7 to L1 stabilization T9 10 osteo-discitis evacuation and stabilization, were recovered appropriately and sent to the floor. While on the floor they worked with physical therapy, occupational therapy and nursing to enhance their recovery experience. Their pain was well controlled through their stay and they were started on appropriate medications, DVT ppx modalities, activity and dietary needs. Daily labs were monitored closely, and transfusions were only use d when necessary. Medicine as well as other consulting services have made their input and have helped with our team approach and multidisciplinary care. PT milestones have been met and passed and they have made the recommendation of home with home care for this patient and treating providers agree with this care path. The patient will be discharged home with appropriate medications, instructions and follow-up information and in stable condition. Patient Condition at Discharge: Good Plan - Discharge Summary Discharge Rx Participant: No New Discharge Prescriptions: New Sennosides-Docusate Sodium [Senokot-S] 2 each PO DAILY PRN #60 tab PRN Reason: Constipation Gabapentin 300 mg PO TID #90 cap HYDROcodone/APAP 10-325MG [[place] 10-325] 1 tab PO Q4-6H PRN #56 tab PRN Reason: Pain Continue Cyclobenzaprine [Flexeril] 10 mg PO TID PRN PRN Reason: Muscle Spasm Alfuzosin HCl [Alfuzosin HCl ER] 10 mg PO HS Metoprolol Tartrate [Lopressor] 25 mg PO BID #60 tab Lisinopril-Hctz 20-12.5 mg [Zestoretic 20-12.5] 1 tab PO BID No Action ceFAZolin [Kefzol] 2 gm IVP Q8HR #126 each traMADol HCl [Ultram] 50 mg PO Q4HR PRN PRN Reason: Moderate Pain Naproxen [Naprosyn] 250 mg PO TID #30 tab Discharge Medication List Alfuzosin HCl [Alfuzosin HCl ER] 10 mg PO HS 05/30/22 [History] Cyclobenzaprine [Flexeril] 10 mg PO TID PRN 05/30/22 [History] traMADol HCl [Ultram] 50 mg PO Q4HR PRN 05/30/22 [History] Metoprolol Tartrate [Lopressor] 25 mg PO BID #60 tab 06/07/22 [Rx] Naproxen [Naprosyn] 250 mg PO TID #30 tab 06/07/22 [Rx] ceFAZolin [Kefzol] 2 gm IVP Q8HR #126 each 06/07/22 [Rx] Lisinopril-Hctz 20-12.5 mg [Zestoretic 20-12.5] 1 tab PO BID 06/08/22 [History] Gabapentin 300 mg PO TID #90 cap 08/07/22 [Rx] HYDROcodone/APAP 10-325MG [[place] 10-325] 1 tab PO Q4-6H PRN #56 tab 08/07/22 [Rx ] Sennosides-Docusate Sodium [Senokot-S] 2 each PO DAILY PRN #60 tab 08/07/22 [Rx] Follow up Appointment(s)/Referral(s): Chris Laguerre DO [Primary Care Provider] - 1 Week Giuliana Sampson NPC [Nurse Practitioner] - 2 Weeks [facility] [NON-STAFF] - As Needed ([facility] (P: [phone]) covered at 100%.) Radha Becker [NON-STAFF] - 1 Week Zulma Mas MD [STAFF PHYSICIAN] - 1 Week Activity/Diet/Wound Care/Special Instructions: Spine Discharge and Recovery Instructions Date of Surgery: 08/03/2022 Diagnosis: T9-T10 osteo-discitis with instability Procedure: T7 to L1 stabilization T9 10 osteo-discitis evacuation and stabilization Medications: See list All medication refills should be obtained through your primary care doctor or your clinic spine surgeon. Please discuss prescription refills at your follow up appointment. Do not call the hospital for medication refills. Activity: Encourage ambulation with assist of walker OOB 6-8x daily PT/OT daily work on balance, strength and mobility Up in chair with all meals, OOB all meals Shower daily Brace: Wear TLSO brace when up and about at all times. Do not wear while sleeping or showering. May take breaks from brace while sitting or laying and resting. Dressing: Leave your dressing in place for a total of 3 days post operatively. Then you may remove your dressing and leave open to air. Keep the area clean and if not able to keep area clean, then cover with sterile gauze and tape. Showering: You may shower 3 days after your procedure allowing soap and water to run over incision. Do not scrub. Do not soak. Blot dry. Follow up: Please confirm a follow up appointment with your surgeon 2 weeks post o peratively. Please make an appointment to follow up with your PCP in 1-2 weeks after surgery for evaluation 3 phase, 3-week plan POST OP WEEKS 1-3 1. Lifting/carrying/pushing/pulling limited to less than 5 pounds. 2. Do not sit for longer than 15 minutes at one time. Get up and walk around. Prolonged sitting is NOT advised. If you lay down, see if you can tolerate laying down on you front (belly side) 3. Walk for periods of 15 minutes = 1 mile but no longer; do it multiple times times each day. 4.Ice your low back after activity. POST OP WEEKS 3-6 1. Lifting limited to less than 20 pounds. 2. Do not sit for longer than 30 minutes at a time. Frequently change positions. Use a sit-to stand workstation or take frequent breaks from sitting if you have returned to work. 3. Walk for 30 minutes each day. If possible, do these three or more times a day POST OP WEEKS 6+ At your 6-week appointment we will give you a physical therapy referral to focus on a core stabilization and strengthening program. You should also work on leg & buttock strengthening, hamstring & quadriceps stretching, and continue a low impact aerobic activity program such as swimming, walking, or riding a stationary bicycle. During the initial 6 weeks after your surgery, you are at the highest risk of re-injuring your spine. You should generally avoid BLTs (bending, lifting and twisting combination motions) and follow the above guidelines to reduce the chance of reinjury. You can anticipate post op appointments in our office at approximately 3 weeks and 6 weeks after your surgery. INCISION CARE: If your incision is not draining you do NOT need to cover it with a dressing. Keep your incision clean, dry and intact. In most cases, we apply skin glue, brad or sutures to the incision at the time of surgery. This will be like a crust or have the appearance of a scab and will fall off in time on its own. The stitches or brad need to be removed at 3 weeks post op appointment. You may begin to shower 3 days after surgery (this allows the glue to hallman well). However, please avoid scrubbing the incision site or peeling off any of the skin glue. This will ensure optimal healing of your incision. Also, during this time avoid soaking the incision area in water - this includes swimming pools, hot tubs or baths. No ointments, lotions or oils on the incision until your surgeon allows. Leave brad, sutures or glue in place. Neurological dysfunction that comes on suddenly can also be a sign of a stroke. Below some common symptoms of a stroke are listed: B - balance difficulty such as sudden onset walking or leaning to one side - NEW E - eye problem such as sudden double vision or trouble seeing on one side - NEW F - Facial weakness or numbness on one side - NEW A - Arm or leg weakness or numbness on one side - NEW S - Slurred speech or difficulty with word finding - NEW T - Time is BRAIN! Call 911 as soon as you recognize these symptoms Diet: Consume a regular diet rich in vegetables and lean protein such as chicken or fish. You should consume in a ratio of approximately 20% fats|40% carbohydrates|40%protein. Vegetables, sweet potatoes, brown rice or quinoa are examples of good carbohydrates. Chips, white bread, cookies and sweets/sugar are examples of bad carbohydrates. Limit your bad carbs, go wild with good carbs. "Life's Simple 7" Guidelines as per [place] [employer] These will help you reclaim your life after surgery and mold closer helper in your recovery, keeping in mind your restrictions. (1) Get Active. Physical activity can help people lose weight, control high blood pressure and cholesterol, feel emotionally better, and sleep better. (2) Control Cholesterol. Avoid a diet high in saturated fat, trans fat, & cholesterol. Limit whole milk & cream, ice cream, butter, egg yolks, processed meats (like sausage and hot dogs), and fatty meats. Choose healthy foods that are low in saturated fat, trans fat and cholesterol which include: Fruits and vegetables, fiber rich grain products (like whole grain pasta and brown rice), lean meat such as chicken, fish, nuts, seeds, and legumes. (3) Eat Better. Eat small portions. Shop at the grocery with a list and do not stray from it. Tips for a healthy diet include: Limit sodium intake to less than 1500mg daily, avoid prepackaged, processed, and fast foods, choose a diet rich in fruits, vegetables, and whole grain, high fiber foods, and limit saturated & cholesterol in your diet. (4) Manage Blood Pressure. If you have high blood pressure, you should have a cuff at home so that you can check your blood pressure regularly. Be sure you have a good cuff. An arm one is generally better than a wrist one. Bring the cuff to a doctor's appointment to validate that the measurements that your cuff are taking are accurate. Take your blood pressure twice daily when you are sitting down and relaxing. Record the numbers in a log and bring this log with you to your doctors' appointments. (5) Lose Weight if your BMI is above 25. A healthy BMI is between 19-25. To calculate Your BMI, you may use a Standard BMI Calculator on the NIH BMI website: <www.nhlbi.nih.gov/guidelines/obesity/BMI/bmicalc.htm>. Weigh oneself daily. If you are overweight, set a goal to lose weight. A pound a week loss if needed is a good target. (6) Reduce Blood Sugar. Limit foods and liquids with "added sugars." (Added sugars include sucrose, fructose, glucose, maltose, dextrose, high fructose corn syrup, corn syrup, concentrated fruit juice and honey). (7) Stop Smoking. If you smoke, quitting smoking is one of the best things that you can do for your health. Smoking increases your risk of heart attack, stroke, and peripheral vascular disease, which is a build-up of plaque in your arteries. Please discard all the cigarettes and lighters in your house. Have a plan for what you will do when you have the urge to smoke. Direct and second- hand smoke shortens your life as well as the lives of your family, friends and others around you. For your health and the health of those around you, please consider quitting! Proper Bending Body Mechanics: Maintain a wide stance with one foot slightly in front of the other. Keep your back straight. Bend utilizing the strength in your hips and knees. Do not bend at the waist. Maintain the lifted object at your waist-level close to your body. Avoid lifting weight that causes immediately pain or pain anywhere in the body afterwards. Smoking/Nicotine If there was ever one thing that you could do to increase your overall health, decrease your risk of cardiovascular problems by about 39% the second you make the choice, it is to STOP SMOKING. Your body's most instant gratification is the second you stop smoking. We have all heard the studies, read the articles but it is true, smoking is extremely bad for your overall health, and moreover it is detrimental to your bone health. Nicotine, IN ANY FORM, kills bone cells, prevents your body from healing fractures, and significantly prolongs healing after surgery. In spine surgery specifically, it increases your risk of not healing your bones to create a fusion and increases your risk of having a revision surgery due to this up to 60%. I know it is hard. I know it feels impossible. But there are ways. Take control of your life. We are here to help you through it. And when you are ready, ask us and we can direct you to help if you desire. Use the START Plan to Quit Smoking (please visit the Helpguide.org website listed below for more information): S = Set a quit date. Choose a date within the next 2 weeks, so you have enough time to prepare without losing your motivation to quit. If you mainly smoke at work, quit on the weekend, so you have a few days to adjust to the change. T = Tell family, friends, and co-workers that you plan to quit. Let your friends and family in on your plan to quit smoking and tell them you need their support and encouragement to stop. Look for a quit tiffanie who wants to stop smoking as well. You can help each other get through the rough times. A = Anticipate and plan for the challenges you'll face while quitting. Most people who begin smoking again do so within the first 3 months. You can help yourself make it through by preparing ahead for common challenges, such as nicotine withdrawal and cigarette cravings. R = Remove cigarettes and other tobacco products from your home, car, and work. Throw away all your cigarettes (no emergency pack!), lighters, ashtrays, and matches. Wash your clothes and freshen up anything that smells like smoke. Shampoo your car, clean your drapes and carpet, and steam your furniture. T = Talk to your doctor about getting help to quit. Your doctor can prescribe medication to help with withdrawal and suggest other alternatives. If you can't see a doctor, you can get many products over the counter at your local pharmacy or grocery store, including the nicotine patch, nicotine lozenges, and nicotine gum. Resources for Quitting Smoking: <https://www.[place].gov/docum ents/mdc/Quit_Tobacco_Resources_for_patients_313480_7.pdf> Supplementation: Take recommended dosages of Vitamin D and Calcium to help fortify your bones and help them to heal. See your health maintenance packet for dosages and recommended levels. DVT/VTE prophylaxis: You will be given compression stockings from the hospital. Wear these daily for the first two weeks after surgery. You may take them off at night. You may be prescribed a medication to help thin your blood. Take this as directed. If you are not prescribed this medication, early and frequent ambulation has been shown to be the best prophylaxis to deep vein thrombosis and sequelae related to this event. Discharge Disposition: HOME WITH HOME HEALTH SERVICES
--- NOTE | 2022-08-07 15:22 | P.OP ---
Date of Procedure: 08/02/22 Preoperative Diagnosis: 1. 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 Severe mechanical mid back pain 3. LE paresthesias 4. Gait instability Postoperative Diagnosis: 1. 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 Severe mechanical mid back pain 3. LE paresthesias 4. Gait instability Procedure(s) Performed: Posterior midline approach 1. T7-L1 posteriolateral instrumented fusion (12173, 76346, 74017) 2. T9 partial corpectomy (13452) 3. T9-10 Posterior interbody fusion and application of antibiotic stimulan cement (23673) 4. Evacuation of phlegmon T9-10 disc space with fracture stabilization (12849) 5. T8-T10 bilateral laminectomy, complete facetectomy and foraminotomy (83883, 00339) 6. Segmental instrumentation T7-L1 (86643) 7. Insertion of biomechanical device T9-10 (54382) 8. Removal of epidural mass and phlegmon T8-10 9. Use of [employer] 3D navigation for placement of screws (35945) 10. Needle localization of T9-10 using flouroscopic imaging (04177) 11. Use of intraoperative neuromonitoring 12. Interpretation of intraopeartive flouroscopy <1 hr (07468) Implants: -Globus Rise Cage 10mm X 7-15mm -Sj [place] Screw and amanda system -Crosslinks x2 -Autograft -Allograft -Stimulan with Vancomycin and gentamycin -Karla Anesthesia: GETA Surgeon: Ash Arce Estimated Blood Loss (ml): 1,000 IV fluids (ml): 3,500 Urine output (ml): 500 Pathology: other (x2 cultures T9-10 disc space; x2 tissue T9-10 Disc space; x2 Pathology specimine T9-10 Disc space) Condition: stable Disposition: PACU Indications for Procedure: 62 yo male with a history of severe back pain since May 2022 presented for evaluation at the [facility]. He underwent a shoulder scope at an outside facility recently and after this he started developing severe back pain. He was seen by another spine surgeon and he was worked up appropriately with MRI. MRI showed likely discitis with begining osteomyelitis. He was treated conservatively with IVABX and bracing, however he did not tolerate the brace well and did not wear much. He also sustained 2 or more falls related to his back once from his truck and the other in the bathroom which was the most recent and he was unable to ambulate well after this fall. He was in the hospital for a week or so and was DC as he got better. His back continues to hurt him however and he started developing paresthesias in his LE b/l. He was evaluated by myself and new MRI ordered showed progression of his osteodiscitis at T9-10 with incresed bony erosive changes. CT was ordered which confirmed the erosion. Endplates starting to show sclerosis, however this is a very unstable pathology with the disc space eroded away and bone starting to erode there is high potential for instability. This was expressed to the patient. He also states he cannot do his ADL without significant pain. 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 On top of this, his infection markers continue to be high, he is in pain constantly and his neurological status has changed. I discussed different options with the patient, but recommend surgical stabilization and evacuation as this is the options best suited to give him nursing home stability and effect as well as rid him of infection. He agreed. He was willing to proceed with surgical intervention. Description of Procedure: The patient was seen and examined in the preoperative area. All preoperative protocols were followed. Informed consent was obtained risks and benefits of the procedure were discussed at length. Risks including bleeding infection damage to the surrounding tissue and risk of reoperation were discussed with the patient. Risk of anesthesia up to and including was a discussed with the patient. These are outlined in the risk review. They were willing to accept these risks and all of the risks of surgery. The patient was given a weight- based dose of antibiotics in the form of previous antibiotics and PICC line from the floor as well as 2 g of Ancef. The patient was seen and evaluated by the anesthesia team who deemed them fit for surgery. The site was marked, the patient was willing to proceed with the procedure. The patient was transferred to the operative suite by the Department of anesthesia. They were then drifted off to sleep by the department anesthesia and GETA was performed. The patient tolerated this well. [Harrison catheter was placed by nursing staff, atraumatically]. Once confirmation of lines and ventilation the patient was transferred to a [prone Maxime table very carefully]. All bony prominences including wrists, elbows, axilla, chest, hips, and thighs, and feet were padded very well. Special attention was paid to the genitalia and these were padded accordingly. SCDs were placed on bilateral lower extremities and were connected. Arms were well padded and placed [on arm boards up and out in the 90/90 position]. Once in position, again we confirmed good ventilation capabilities and that lines were running appropriately. The patient's the thoracolumbar spine was then exposed. 1010s were placed outlining the incision site. Standard alcohol was used to clean the incision site and allowed to dry. C-arm and needle localization was used to biomark the patient and confirm level for incision which was marked with a skin marker. Operative briefing was performed with all teams and everyone in agreement to proceed. The patient was then prepped and draped in a normal sterile fashion. Timeout was then performed and all parties were in agreement with the procedure to be performed. Midline skin incision was made over the previously biomarked area and dissection taken down to the thoracolumbar facia which was identified and cleaned with a corea. Midline faciotomy was then made and subperiosteal dissection was taken down over the lamina of T7-L1 respectively. Facet joints and TPs were exposed at all levels. Levels were confirmed with a lateral image and a penfield 4 placed at T9-10 interspace. A pedicle marker was then placed at T9 on the left and a spinous process clamp was placed at T9 for the [employer] Navigation. 3D C arm spin was then obtained and navigation confirmed to be accurate. We then placed screws b/l at T7-L1 using the freehand technique with navigation. A navigated annie was used to make a towboat pilot hole, an awl-tap navigated through the pedicle and the screw length measured. Screw was then placed with navigated garbage collector driver. All screws were placed atraumatically and flouroscopic imaging confirmed good placement of all screws. NM was quite during this w/o issues. Once screws were placed attention was drawn to the T8-T11 region where bilateral laminectomy, complete facetectomy and foraminotomy was performed for visualization as well as access to the T9-10 interspace. Once this was accomplished there was gross instability and a temporary amanda was placed. We then accessed the T9-10 interspace b/l protecting exiting roots and with no manipulation of the spinal cord. There was a large amount of erosion. There was phlegmon in interspace as well as epidrual space which was removed and sent for culture. Once accessed, an osteotome was used as well as high speed annie to remove the pedicle of T10 on the left. We then performed a partial corpectomy of T9 using high speed annie, osteotome and autumn this allowed for flattening of the surface, debridment of the interspace of any diseased tissue which was collected and sent to the lab for analysis as well as to pathology. A swab of the interspace was also taken and sent. This also allowed for measurement of the space in T9-10. It was determined that a Globus Rise cage would fit very well here and so on the right side, this was prepped for a cage. There again was through and through visualization at this level and anterior structures were visible through the disc space as well as osteotomy space. We then irrigated the interspace of T9-10 with copious abx irrigation as well as irricept. We then placed allograft anterior within the interspace created and kept it in position with surgicel. We then placed a Globus Rise cage and expanded it until it met what was left of the endplates. We tested the cage and it was very stable in this area. We then back filled around the cage with DBM and allograft. We then turned our attention to the contralateral side where an osteotome was used to complete the partial corpectomy of T9 under lateral image guidance. We then mixed up a vancomycin and gentamycin stimulan cement. This was then keep slighly less viscus and was injected into the disc space remaining on this side. Under lateral and AP imaging this could be seen filling all extra gaps in the disc space to deliver ABX to the area as well as stability to the anterior column. Once this was accomplished we then copiously irrigated with N SS. Final rods were then selected and bent accordingly and placed one at a time. Once the first amanda was positioned and set screws placed, the temporary amanda was removed and a final amanda placed along with set screws. We then final tightented all set screws with torq limiter. We then decorticated facet joints, PL gutter with high speed annie. Meticulous hemostatis was accomplished as well. The ner ves and spinal canal were completely decompressed Cross links were placed over laminectomy site. Copious abx and NSS irrigation was then run through the wound bed. We then decorticated all facet joints, PL gutters with high speed annie. Mixture of synthetic and allograft was then placed in the PL gutter and impacted into place from T7-L1. NM remained stable through the case. We then placed a d eep drain. 2 g Vancomycin powder placed in the wound. We then closed the wound with #1 PDS in the facial layers followed by 0PDS in the deep SQ tissue. 2-0 Vicryl in the superficial SQ tissues and Lan in the skin. The edges approximated well. The wound was then cleaned with ETOH and dressed sterilly with an optifoam dressing, drain sponge and tegaderm. The patient was transferred back to their hospital bed atraumatically. [Drain continued to hold suction and were in good position]. Patient was then awakened and extubated by the department of anesthesia having tolerated the procedure very well with no complications. They were transferred to the postoperative care unit in stable condition.
== END 2022-08-07 17:30 | disposition home health service (06) | DRG 856 ==
LOC: 2ORMAIN 06:05 → 2SICU 15:32 → 5NMEDONC 08-03 18:13
PROVIDERS: ADMIT Orthopaedic Surgery; ATTEND Orthopaedic Surgery
PROC: 0J970ZZ Drainage of Back Subcutaneous Tissue and Fascia, Open Approach (ICD-10-PCS; principal; 2022-08-07)
PROC: 0RG7071 Fusion of 2 to 7 Thoracic Vertebral Joints with Autologous Tissue Substitute, Posterior Approach, Posterior Column, Open Approach (ICD-10-PCS; principal; 2022-08-07)
PROC: 00NX0ZZ Release Thoracic Spinal Cord, Open Approach (ICD-10-PCS; principal; 2022-08-07)
PROC: 0RH Upper Joints, Insertion (ICD-10-PCS; principal; 2022-08-07)
PROC: 4A1004G Monitoring of Central Nervous Electrical Activity, Intraoperative, Open Approach (ICD-10-PCS; principal; 2022-08-07)
PROC: 0RGA071 Fusion of Thoracolumbar Vertebral Joint with Autologous Tissue Substitute, Posterior Approach, Posterior Column, Open Approach (ICD-10-PCS; principal; 2022-08-07)
DX: T81.40XA Infection following a procedure, unspecified, initial encounter (principal); G06.2 Extradural and subdural abscess, unspecified; M31.19 Other thrombotic microangiopathy; M46.24 Osteomyelitis of vertebra, thoracic region; G95.89 Other specified diseases of spinal cord; M46.44 Discitis, unspecified, thoracic region; I10 Essential (primary) hypertension; E89.0 Postprocedural hypothyroidism; M48.04 Spinal stenosis, thoracic region; R26.89 Other abnormalities of gait and mobility; G47.8 Other sleep disorders; M62.81 Muscle weakness (generalized); Z96.641 Presence of right artificial hip joint; G89.29 Other chronic pain; N40.0 Benign prostatic hyperplasia without lower urinary tract symptoms; R00.0 Tachycardia, unspecified; B95.61 Methicillin susceptible Staphylococcus aureus infection as the cause of diseases classified elsewhere; M85.88 Other specified disorders of bone density and structure, other site; Y83.8 Other surgical procedures as the cause of abnormal reaction of the patient, or of later complication, without mention of misadventure at the time of the procedure; M19.90 Unspecified osteoarthritis, unspecified site; W19.XXXA Unspecified fall, initial encounter; M25.50 Pain in unspecified joint; Z91.19 Patient's noncompliance with other medical treatment and regimen; Z91.81 History of falling; Z95.828 Presence of other vascular implants and grafts; Z86.14 Personal history of Methicillin resistant Staphylococcus aureus infection; Z87.891 Personal history of nicotine dependence; Z79.899 Other long term (current) drug therapy; Z87.81 Personal history of (healed) traumatic fracture; Z82.49 Family history of ischemic heart disease and other diseases of the circulatory system; Z84.1 Family history of disorders of kidney and ureter; Z80.0 Family history of malignant neoplasm of digestive organs
CPT/HCPCS: 72100; 72128; 80048; 82805; 83735; 85025; 85027; 85610; 85652; 85730; 86140; 87070; 87075; 87077; 87102; 87116; 87186; 87205; 87206; 87252; 87496; 87498; 87529; 87798

== ENCOUNTER → 2023-02-13 | Outpatient (CLI) | payer BC ==
--- NOTE | 2023-02-13 10:13 | CT ---
EXAMINATION TYPE: CT thoracic spine wo con, CT lumbar spine wo con DATE OF EXAM: 02/13/2023 COMPARISON: Prior CT thoracic spine August 03, 2022 HISTORY: post spine surgery CT DLP: 2025.7 (accession [id number]), 2030.4 (accession [id number]) mGycm, Automated Exposure Control fo r Dose Reduction was Utilized. CONTRAST: CT scan of the thorax and lumbar spine are performed without IV contrast. FINDINGS: There is persistent long segment posterior intrapedicular rods and screws running from T7 level throu gh the L1 level bilaterally. Metallic disc material right T9-T10 level is redemonstrated. There are p ersistent large bridging anterior and right lateral osteophytes beginning at inferior T3 level extend ing to T12 level and additional bridging osteophytes at a few levels in the thoracolumbar spine on th e left. Osseous structures are demineralized. There is mild height loss involving the T9 vertebra red emonstrated. Thoracic spinal canal is fairly well-preserved. Posterior decompression changes at T9-T1 0 level are redemonstrated. Screw position in the thoracic spine and upper lumbar spine is satisfacto ry and stable. Alignment is satisfactory and stable. Lumbar spine shows moderate disc space narrowing and vacuum disc phenomenon at L5-S1 level. Vertebral body heights are maintained. Axial images at L2-L3 level show mild facet arthropathy bilaterally. Axial images at L3-L4 level show mild to moderate broad disc bulge mildly effacing the anterior theca l sac and mild facet arthropathy bilaterally. There is some left greater than right bilateral neural foraminal narrowing seen. Axial images at L4-L5 level shows moderate broad disc bulge with central disc protrusion component ef facing the anterior thecal sac. There is moderate to advanced facet arthropathy bilaterally. There is bilateral neural foraminal narrowing seen. Axial images at L5-S1 level show moderate facet arthropathy bilaterally. There is posterior spur disc complex. There is bilateral neural foraminal narrowing seen. Visualized liver is low dense consistent with diffuse fatty infiltration. IMPRESSION: Postsurgical changes redemonstrated with stable and satisfactory alignment. Multilevel de generative changes are seen as detailed above.
== END | disposition home or self-care (01) ==
LOC: RADCTMAIN 08:32
PROVIDERS: ATTEND Orthopaedic Surgery
DX: M47.817 Spondylosis without myelopathy or radiculopathy, lumbosacral region (principal); M99.74 Connective tissue and disc stenosis of intervertebral foramina of sacral region; M51.26 Other intervertebral disc displacement, lumbar region; M51.34 Other intervertebral disc degeneration, thoracic region; M46.30 Infection of intervertebral disc (pyogenic), site unspecified; Z98.1 Arthrodesis status
CPT/HCPCS: 72128; 72131

== ENCOUNTER → 2023-02-15 | Outpatient (CLI) | payer BC ==
--- NOTE | 2023-02-16 06:26 | MR ---
EXAMINATION TYPE: MR thoracic spine wo/w con DATE OF EXAM: 02/15/2023 COMPARISON: 07/16/2022 HISTORY: Thoracic infective discitis. Left thigh pain. Surgery 08-02-2022 CONTRAST: Standard multiplanar, multisequence MRI departmental protocol images were obtained without contrast a nd with 12 mL intravenous Gadavist gadolinium contrast. Multiplanar multi echo imaging of the thoracic spine performed without and with the IV contrast. There is multilevel posterior fusion surgery with metal artifact. This obscures the thoracic spine fr om T7 to the lumbar spine. There is considerable metal artifact. No sign of the thoracic paraspinal m ass. There were thoracic spinal cord appears intact. No evidence of upper thoracic spinal stenosis. N o pathologic enhancement. No evidence of any significant posterior pathologic fluid collection. IMPRESSION: There is considerable metal artifact which obscures the area of interest which is T9-T10 disc. The po ssibility of some persistent discitis cannot be evaluated due to the metal artifact. Spinal canal not evaluated. No significant abnormality seen in the upper thoracic spine.
== END | disposition home or self-care (01) ==
LOC: RADMRIMAIN 18:18
PROVIDERS: ATTEND Orthopaedic Surgery
DX: M46.30 Infection of intervertebral disc (pyogenic), site unspecified (principal)
CPT/HCPCS: 72157; A9585